=== PATIENT | male | born 1945 | race Caucasian/White ===

== ENCOUNTER 2020-04-06 10:16 | Outpatient (REF) | payer MEDICARE, SELFPAY ==
--- NOTE | ~2020-04-06 | US_ITS ---
EXAMINATION: EXAMINATION: NONINVASIVE ASSESSMENT OF THE ARTERIES OF BOTH LOWER EXTREMITIES WITH PVR EXAM AND BILATERAL LOWER EXTREMITY DUPLE CLINICAL INFORMATION: Peripheral vascular disease TECHNIQUE: Ankle pulse volume recordings, ankle pressure measurements and ankle brachial indices were obtained of the lower extremity arterial system bilaterally in addition to duplex Doppler techniques with wave form analysis and measurement of velocities in the common femoral, profunda femoral, superficial femoral, popliteal and tibial arteries. The study was performed only at rest. COMPARISON: Previous ankle brachial indices August 2019 FINDINGS: a) AT REST: RIGHT LE. The right ankle-brachial index is: 0.9 2. Right ankle pressure: Slightly decreased. 3. Right ankle PVR waveform: Slightly dampened. 4. Right direct duplex Doppler findings: There is atherosclerotic disease of the posterior tibial artery. * Common femoral artery: 100 cm/s, Diastolic flow reversal: No. Biphasic. * Superficial femoral artery (proximal, mid, distal): 122, 90 and 39 cm/s, Diastolic flow reversal: Yes * Popliteal artery: 90 cm/s, Diastolic flow reversal: Yes * Posterior tibial artery: 16 cm/s, Diastolic flow reversal: No. Monophasic. LEFT LE. The left ankle-brachial index is: 1.1 2. Left ankle pressure: normal. 3. Left ankle PVR waveform: normal. 4. Left direct duplex Doppler findings: There is atherosclerotic disease in the posterior tibial artery. * Common femoral artery: 87 cm/s, Diastolic flow reversal: Yes * Superficial femoral artery (proximal, mid, distal): 118, 99 and 55 cm/s, Diastolic flow reversal: No. Biphasic waveform. * Popliteal artery: 108 cm/s, Diastolic flow reversal: Yes * Posterior tibial artery: 47 cm/s, Diastolic flow reversal: No. Mnophasic. TEETEE Reference: * >0.97-1.25 = normal - no significant arterial disease * 0.75-0.96 = mild peripheral arterial disease * 0.5-0.74 = moderate peripheral arterial disease * <0.50 = severe peripheral arterial disease US/US arterial duplex LE BI IMPRESSION: Right: There is a right posterior tibial artery disease with decreased peak systolic velocity and dampened monophasic waveform and abnormal PVRs. The right TEETEE is 0.92. Left: There is left left posterior tibial artery disease with vessel monophasic waveform. There are abnormal biphasic waveforms in the left profunda and SFA. The left TEETEE is 1.1.
== END 2020-04-06 10:17 | disposition home or self-care (01) ==
LOC: HO.US 10:16
PROVIDERS: Visit Provider Surgery Vascular Surgery
DX: I73.9 Peripheral vascular disease, unspecified (principal)
CPT/HCPCS: 93923; 93925

== ENCOUNTER → 2020-04-14 08:50 | Outpatient (BNVA) | payer MEDICARE, SELFPAY | PROVIDERS: PCP Internal Medicine Endocrinology, Diabetes & Metabolism; Visit Provider Surgery Vascular Surgery | DX: I73.9 Peripheral vascular disease, unspecified (principal); I71.4 Abdominal aortic aneurysm, without rupture | CPT/HCPCS: 99212 ==

== ENCOUNTER 2020-10-05 07:46 | Outpatient (REF) | payer MEDICARE, SELFPAY ==
--- NOTE | ~2020-10-05 | US_ITS ---
EXAMINATION: US RETROPERITONEAL LIMITED (AORTA) CLINICAL INFORMATION: Abdominal aortic aneurysm, without rupture. COMPARISON: Limited retroperitoneal ultrasound (aorta) dated 09/09/2019. TECHNIQUE: Hook-scale, color Doppler and spectral Doppler evaluation of the abdominal aorta. FINDINGS: There is an infrarenal distal abdominal aortic aneurysm measuring 5.5 x 5.4 cm. Previously, this measured 4.4 x 2.6 cm The measurements of the aorta in maximum AP and transverse dimensions respectively are as follows: Proximal: 3.5 x 3.4 cm. Previously, this measured 2.9 x 2.9 cm. Mid: 2.4 x 2.7 cm. Distal: 5.5 x 5.4 cm. Previously, this measured 4.4 x 2.6 cm. PSV: 92 cm/sec The measurements of the common iliac arteries in maximum dimensions are as follows: Right: AP: Not seen. Left: AP: 1.5 cm. TRV: 1.6 cm. US/US abdominal aortic aneurysm IMPRESSION: 1. There is been interval increase in the distal abdominal aortic aneurysm, now measuring 5.5 x 5.4 cm..
== END 2020-10-05 07:47 | disposition home or self-care (01) ==
LOC: HO.US 07:46
PROVIDERS: PCP Internal Medicine; Visit Provider Surgery Vascular Surgery
DX: I71.4 Abdominal aortic aneurysm, without rupture (principal)
CPT/HCPCS: 76706

== ENCOUNTER → 2020-10-08 10:48 | Outpatient (BNVA) | payer MEDICARE, SELFPAY | PROVIDERS: PCP Internal Medicine; Referring Provider Internal Medicine; Visit Provider Surgery Vascular Surgery | DX: I71.4 Abdominal aortic aneurysm, without rupture (principal); I73.9 Peripheral vascular disease, unspecified | CPT/HCPCS: 99212 ==

== ENCOUNTER 2020-10-13 07:20 | Outpatient (REF) | payer MEDICARE, SELFPAY ==
[2020-10-13 08:31] LABS: Blood Urea Nitrogen 12 mg/dL (9-16); Estimated Glomerular Filt Rate > 60
== END 2020-10-13 07:21 | disposition home or self-care (01) ==
LOC: HO.LAB 07:20
PROVIDERS: PCP Internal Medicine; Visit Provider Surgery Vascular Surgery
DX: I71.4 Abdominal aortic aneurysm, without rupture (principal)
CPT/HCPCS: 36415; 82565; 84520

== ENCOUNTER 2020-10-15 07:49 | Outpatient (REF) | payer MEDICARE, SELFPAY ==
--- NOTE | ~2020-10-15 | CT_ITS ---
EXAMINATION: CT ANGIOGRAM ABDOMEN AND PELVIS CLINICAL INFORMATION: Abdominal aortic aneurysm. COMPARISON: Previous abdominal aortic aneurysm ultrasound 10/05/2020. TECHNIQUE: Multiple axial images were obtained through the abdomen and pelvis following the administration of 100 mL of Omnipaque 350 intravenous contrast. Images were reviewed on a dedicated 3-D workstation. This CT examination was performed using dose optimization techniques as appropriate, variously including the following: *Automated exposure control *Adjustment of mA and/or kV according to patient size (this includes techniques or standardized protocols for targeted exams where dose is matched to indication/reason for exam; i.e. extremities or head) *Use of iterative reconstruction technique DLP: 344 mGy-cm. FINDINGS: VASCULAR: There is a saccular aneurysm of the infrarenal abdominal aorta. This measures 3.5 x 4.8 cm in transverse and AP dimension. This involves the origin of the CHANTAL. The right lateral wall of the aneurysm appears irregular, possibly with small ulceration. The right common iliac artery is slightly dilated measuring 1.8 cm. The left common iliac artery is slightly dilated measuring 1.9 cm and contains some thrombus. The right external and internal iliac arteries are patent. The right common femoral artery is patent. The right femoral bifurcation is patent. There is mild stenosis at the origin of the left internal iliac artery. The left external iliac artery is patent. The left common femoral artery is patent. The left femoral bifurcation is patent. The celiac axis and SMA are patent. There is a stenosis at the origin of the CHANTAL. The CHANTAL is patent. There are single patent renal arteries. NON-VASCULAR: There is minimal subsegmental atelectasis at the left lung base. There is a trace pericardial effusion. There is question of mild cirrhotic changes of the liver with hypertrophy of the left lobe and caudate lobe. The contour of the liver appears normal. No focal liver lesion is seen. The gallbladder is normal. There is no biliary duct dilatation. The spleen is normal. The pancreas is normal. The adrenal glands are normal. There is a 1 cm cyst in the lower pole of the left kidney. The kidneys are otherwise normal. The bladder is normal. The prostate gland does not appear enlarged. There is mild diverticulosis of the colon. Small and large bowel is otherwise unremarkable. The stomach is unremarkable. The appendix is unremarkable. There is a small umbilical hernia containing fat. No ascites or adenopathy is seen. There are degenerative changes of the spine. There is mild anterior subluxation of L4 with respect L5 probably related to facet arthritis. There are degenerative changes at the hip joints. CT/CT angio abdomen pelvis IMPRESSION: 3.5 x 4.8 cm saccular aneurysm of the lower abdominal aorta. Mild dilatation of the bilateral common iliac arteries.
[2020-10-15] MEDS: iohexoL 350 MG/ML 100 ML INFUS..BTL IV (08:32)
== END 2020-10-15 07:50 | disposition home or self-care (01) ==
LOC: HO.CT 07:49
PROVIDERS: PCP Internal Medicine; Visit Provider Surgery Vascular Surgery
DX: I71.4 Abdominal aortic aneurysm, without rupture (principal)
CPT/HCPCS: 74174; 99212; Q9967

== ENCOUNTER 2021-02-11 08:45 | Outpatient (REF) | payer MEDICARE, SELFPAY | END 2021-02-11 08:46 | disposition home or self-care (01) | LOC: HO.WFDLDS 08:45 | PROVIDERS: PCP Internal Medicine; Visit Provider Internal Medicine | DX: Z20.822 Contact with and (suspected) exposure to COVID-19 (principal) | CPT/HCPCS: C9803; U0003; U0005 ==

== ENCOUNTER 2021-02-15 11:09 | Outpatient (REF) | payer MEDICARE, SELFPAY | END 2021-02-15 11:10 | disposition home or self-care (01) | LOC: HO.WFDLDS 11:09 | PROVIDERS: Visit Provider Internal Medicine | DX: Z20.822 Contact with and (suspected) exposure to COVID-19 (principal) | CPT/HCPCS: C9803; U0003; U0005 ==

== ENCOUNTER 2021-04-12 08:01 | Outpatient (REF) | payer MEDICARE, SELFPAY ==
--- NOTE | ~2021-04-12 | US_ITS ---
EXAMINATION: US RETROPERITONEAL LIMITED (AORTA) CLINICAL INFORMATION: Abdominal aortic aneurysm without rupture.. COMPARISON: CT abdomen 11/12/2020. Ultrasound 10/05/2020 TECHNIQUE: Hook-scale, color Doppler and spectral Doppler evaluation of the abdominal aorta. FINDINGS: There is an infrarenal distal abdominal aortic aneurysm measuring 6.3 x 4.6 cm. Previously this measured 4.8 x 3.5 cm on the prior CT of 11/12/2020. Previously, this measured 5.5 x 5.4 cm, prior ultrasound 10/05/2020. The measurements of the aorta in maximum AP and transverse dimensions respectively are as follows: Proximal: 3 x 3.3 cm. Previously, this measured 3.5 x 3.4 cm (ultrasound 10/05/2020) Mid: 2.5 x 2.3 cm. Previously, this measured 2.4 x 2.7 cm (ultrasound 10/05/2020) Distal: 6.3 x 4.[address] measurement of 4.8 x 3.5 cm (CT 11/02/2020) PSV: 85.7 cm/s. The measurements of the common iliac arteries in maximum AP and TRV dimensions are as follows: Right Common Iliac Artery: 2.3 x 2 cm. Left Common Iliac Artery: 2.1 x 1.9 cm. US/US abdominal aortic aneurysm IMPRESSION: 1. Interval increase in the distal abdominal aortic aneurysm, now measuring 6.3 x 4.6 cm. This previously measured 4.8 x 3.5 cm on the prior CT of 11/02/2020. Recommend further evaluation with CTA. 2. Mild dilatation of bilateral common iliac arteries. Preliminary report by the plant anatomist called to Gwen at Dr. Lucia's office at 9:00 AM on 04/12/2021. Findings and recommendations discussed with ESTEFANÍA Hidalgo in Dr. Lucia's office at 9:36 AM on 04/12/2021
[2021-04-12 15:11] LABS: Blood Urea Nitrogen 13 mg/dL (9-16); Estimated Glomerular Filt Rate > 60
== END 2021-04-12 08:02 | disposition home or self-care (01) ==
LOC: HO.US 08:01
PROVIDERS: PCP Internal Medicine; Visit Provider Surgery Vascular Surgery
DX: Z01.812 Encounter for preprocedural laboratory examination (principal); I71.4 Abdominal aortic aneurysm, without rupture
CPT/HCPCS: 36415; 76706; 82565; 84520

== ENCOUNTER 2021-04-13 08:07 | Outpatient (REF) | payer MEDICARE, SELFPAY ==
--- NOTE | ~2021-04-13 | CT_ITS ---
EXAMINATION: CT ANGIOGRAM ABDOMEN AND PELVIS CLINICAL INFORMATION: AAA, Without Rupture. COMPARISON: None TECHNIQUE: Multiple axial images were obtained through the abdomen and pelvis following the administration of 80 mL of Omnipaque 350 intravenous contrast. Images were reviewed on a dedicated 3-D workstation. This CT examination was performed using dose optimization techniques as appropriate, variously including the following: *Automated exposure control *Adjustment of mA and/or kV according to patient size (this includes techniques or standardized protocols for targeted exams where dose is matched to indication/reason for exam; i.e. extremities or head) *Use of iterative reconstruction technique DLP: 322 mGy-cm VASCULAR FINDINGS: The distal descending thoracic aorta appears normal. The upper abdominal aorta is unremarkable. There is aneurysmal dilatation of the infrarenal abdominal aorta with maximal dimensions of 4.8 x 3.6 cm (5:44) compared with 4.5 x 3.4 cm on 10/15/2020. The aneurysm begins just over 4 cm below the level of the renal arteries with a long-landing zone. There is mild associated aneurysmal dilatation of the common iliac arteries measuring 1.7 cm on on both sides. The iliac bifurcations are patent. The internal iliac arteries demonstrate fusiform aneurysmal dilatation with a more focal aneurysm measuring 1.5 cm on the left. The external iliac arteries are fusiformly dilated measuring 1.1 cm each. Common femoral arteries are widely patent. Femoral bifurcations are patent. The visualized proximal profunda femoris and superficial femoral artery are widely patent. The celiac and SMA are patent. The left gastric has a separate origin from the abdominal aorta. The right hepatic artery arises from the SMA. The CHANTAL origin is probably tightly stenotic but distal branches fill well. NONVASCULAR FINDINGS: LUNG BASES: The visualized lung bases are unremarkable. Calcified granuloma seen at the left lung base. LIVER, GALLBLADDER, AND BILIARY TREE: The liver is normal in size, shape, and attenuation. No focal hepatic lesion or biliary ductal dilatation is present. The gallbladder is unremarkable with no evidence of radiopaque gallstones, gallbladder wall thickening, or obvious pericholecystic inflammatory changes. PANCREAS: Unremarkable. SPLEEN: Unremarkable. ADRENAL GLANDS: Unremarkable. KIDNEYS AND URETERS: The kidneys are normal in size, shape, and attenuation. No hydronephrosis, hydroureter, or calculi seen. No perinephric stranding. BLADDER: Unremarkable. GASTROINTESTINAL TRACT: The small and large bowel are unremarkable. The appendix is unremarkable. ABDOMINAL WALL: No significant hernia is appreciated. LYMPH NODES: Normal. VASCULAR: Unremarkable. PELVIC VISCERA: Unremarkable. OSSEOUS STRUCTURES: Degenerative changes present in the spine. No bony destructive lesions are seen. CT/CT angio abdomen pelvis IMPRESSION: Infrarenal abdominal aortic aneurysm has increased in size from a maximum of 4.5 to 4.8 cm since the prior study. There is a 4 cm landing zone below the level of the renal arteries. There is associated aneurysmal dilatation of the common iliac arteries at 1.5 cm each. Internal iliac arteries with fusiform dilatation with a 1.5 cm aneurysm on the left. Fleischner guidelines were followed.
[2021-04-13] MEDS: iohexoL 350 MG/ML 100 ML INFUS..BTL IV (09:14)
== END 2021-04-13 08:08 | disposition home or self-care (01) ==
LOC: HO.CT 08:07
PROVIDERS: PCP Internal Medicine; Visit Provider Surgery Vascular Surgery
DX: I71.4 Abdominal aortic aneurysm, without rupture (principal)
CPT/HCPCS: 74174; Q9967

== ENCOUNTER → 2021-04-15 12:54 | Outpatient (BNVA) | payer MEDICARE, SELFPAY | PROVIDERS: PCP Internal Medicine; Visit Provider Surgery Vascular Surgery | DX: I71.4 Abdominal aortic aneurysm, without rupture (principal); I73.9 Peripheral vascular disease, unspecified | CPT/HCPCS: 99212 ==

== ENCOUNTER 2021-11-02 08:31 | Outpatient (REF) | payer MEDICARE, SELFPAY ==
--- NOTE | ~2021-11-02 | US_ITS ---
EXAMINATION: US RETROPERITONEAL LIMITED (AORTA) CLINICAL INFORMATION: Abdominal aortic aneurysm, without rupture. COMPARISON: CT angiogram abdomen and pelvis 04/13/2021. US retroperitoneal limited (aorta) 04/12/2021 and 10/05/2020. TECHNIQUE: Hook-scale, color Doppler and spectral Doppler evaluation of the abdominal aorta. FINDINGS: There is atherosclerotic disease. The measurements of the aorta in maximum AP and transverse dimensions respectively are as follows: Proximal: 3.1 x 3.1 cm. Mid: 2.4 x 2.6 cm. Infrarenal: 4.8 x 3.5 cm Distal: 2.2 x 2.1 cm. PSV: 79 cm/s. The measurements of the common iliac arteries in maximum AP and TRV dimensions are as follows: Right Common Iliac Artery: 1.8 x 2.2 cm. Left Common Iliac Artery: 2.3 x 2.4 cm. US/US abdominal aortic aneurysm IMPRESSION: Infrarenal abdominal aortic aneurysm measuring 4.8 x 3.5 cm (previously 4.8 x 3.6 cm on CTA). Bilateral iliac artery aneurysms.
== END 2021-11-02 08:32 | disposition home or self-care (01) ==
LOC: HO.HMGCX 08:31
PROVIDERS: PCP Internal Medicine; Visit Provider Surgery Vascular Surgery
DX: I71.4 Abdominal aortic aneurysm, without rupture (principal)
CPT/HCPCS: 76706

== ENCOUNTER → 2021-12-07 11:32 | Outpatient (BNVA) | payer MEDICARE, SELFPAY | PROVIDERS: PCP Internal Medicine; Visit Provider Surgery Vascular Surgery | DX: I71.40 Abdominal aortic aneurysm, without rupture, unspecified (principal); I73.9 Peripheral vascular disease, unspecified | CPT/HCPCS: 99212 ==

== ENCOUNTER 2022-11-30 08:44 | Outpatient (REF) | payer MEDICARE, SELFPAY ==
--- NOTE | ~2022-11-30 | US_ITS ---
EXAMINATION: US NONINVASIVE ASSESSMENT OF THE ARTERIES OF BOTH LOWER EXTREMITIES INCLUDING PVR EXAM AND BILATERAL LOWER EXTREMITY DUPLEX. CLINICAL INFORMATION: Peripheral vascular disease COMPARISON: Arterial duplex, TEETEE 04/06/2020 TECHNIQUE: Ankle pulse volume recordings, ankle pressure measurements and ankle brachial indices were obtained of the lower extremity arterial system bilaterally in addition to duplex Doppler techniques with wave form analysis and measurement of velocities in the common femoral, profunda femoral, superficial femoral, popliteal, tibial and peroneal arteries. The study was performed only at rest. FINDINGS: RIGHT LE. THE RIGHT ANKLE-BRACHIAL INDEX IS: 0.89 noncompressibility/calcification. >0.97-1.25 = normal - no significant arterial disease 0.75-0.96 = mild peripheral arterial disease 0.5-0.74 = moderate peripheral arterial disease <0.50 = severe peripheral arterial disease <0.30 = critical arterial disease 2. SEGMENTAL PRESSURES (mmHg): Ankle: PT 132, DP 148 3. PVR WAVEFORMS: Ankle: Normal 4. DIRECT DUPLEX: Common femoral artery: 79 cm/s, biphasic Profunda femoris artery: 58 cm/s, biphasic Superficial femoral artery (proximal): 90 cm/s, biphasic Superficial femoral artery (mid): 77 cm/s, triphasic Superficial femoral artery (distal): 96 cm/s, biphasic Popliteal artery: 82 cm/s, biphasic Mid posterior tibial artery: 29 cm/s, monophasic Anterior tibial artery: 95 cm/s, biphasic Peroneal artery: Not visualized LEFT LE. THE LEFT ANKLE-BRACHIAL INDEX IS: 1.21 (higher of the DP/PT) >0.97-1.25 = normal - no significant arterial disease 0.75-0.96 = mild peripheral arterial disease 0.5-0.74 = moderate peripheral arterial disease <0.50 = severe peripheral arterial disease <0.30 = critical arterial disease 2. SEGMENTAL PRESSURES: Ankle: PT 192, DP 161 3. PVR WAVEFORMS: Ankle: Dampened 4. DIRECT DUPLEX: Common femoral artery: 59 cm/s, biphasic Profunda femoris artery: 49 cm/s, biphasic Superficial femoral artery (proximal): 80 cm/s, biphasic Superficial femoral artery (mid): 121 cm/s, biphasic Superficial femoral artery (distal): 58 cm/s, biphasic Popliteal artery: 86 cm/s, triphasic Mid posterior tibial artery: 32 cm/s, biphasic Peroneal artery; not visualized US/US arterial duplex LE BI IMPRESSION: Right: Mild peripheral vascular disease throughout the right lower extremity, most pronounced within the tibial vessels based on velocity and monophasic waveforms. Peroneal artery is not visualized. The right TEETEE is 0.89 (previously 0.92). Left: Peripheral vascular disease predominantly involving the tibial vessels. Peroneal artery not visualized. The left TEETEE is 1.21 (previously 1.1). Overall, there is progression of the peripheral vascular disease since prior study in 2020.
--- NOTE | ~2022-11-30 | US_ITS ---
EXAMINATION: US RETROPERITONEAL LIMITED (AORTA) CLINICAL INFORMATION: Abdominal aortic aneurysm, without rupture. COMPARISON: US retroperitoneal limited (aorta) 11/02/2021 and 04/12/2021. TECHNIQUE: Hook-scale, color Doppler and spectral Doppler evaluation of the abdominal aorta. FINDINGS: The measurements of the aorta in maximum AP and transverse dimensions respectively are as follows: Proximal: 3.2 x 3.2 cm. Mid: 2.0 x 1.9 cm. Distal (aneurysmal segment): 4.8 x 4.3 cm. (Previously 4.8 x 3.5 cm) PSV: 77 cm/s. The measurements of the common iliac arteries in maximum AP and TRV dimensions are as follows: Right Common Iliac Artery: 1.8 x 2.0 cm. Left Common Iliac Artery: 2.2 x 2.0 cm. US/US abdominal aortic aneurysm IMPRESSION: Mild interval increase in size of abdominal aortic aneurysm, now measuring 4.8 x 4.3 cm (previously 4.8 x 3.5 cm). Bilateral common iliac fusiform aneurysms stable in size.
== END 2022-11-30 08:45 | disposition home or self-care (01) ==
LOC: HO.US 08:44
PROVIDERS: PCP Internal Medicine; Visit Provider Surgery Vascular Surgery
DX: I73.9 Peripheral vascular disease, unspecified (principal); I71.40 Abdominal aortic aneurysm, without rupture, unspecified
CPT/HCPCS: 76706; 93923; 93925

== ENCOUNTER 2022-12-22 13:30 | Outpatient (AMB) | payer MEDICARE, SELFPAY ==
--- NOTE | 2022-12-22 13:22 | MHC.OFFVIS ---
Intake Vital Signs 12/22/22 13:24 Height 5 ft 7 in Weight 215 lb BMI 33.7 Intake Visit Reasons: 1 yr follow up AAA &ARt US Intake Note: Pt here for a FU arterial US pt states that hes doing ok he still gets swelling on both ankles but it goes away aventually. He states that he does use the compression stockings but feels like he might need stronger ones Allergies No Known Allergies Allergy (Verified 12/22/22 13:24) HPI 1 yr follow up AAA &ARt US HPI Details Very pleasant 77-year-old gentleman presents for routine surveillance follow-up regarding his aortic aneurysm and peripheral vascular disease. He has done extremely well. He has no interval issues. He is ambulating several blocks with no issues. Now presents for follow-up with noninvasive testing. [facility] Medical History Type 2 diabetes mellitus PAD (peripheral artery disease) Venous insufficiency AAA (abdominal aortic aneurysm) Surgical History S/P anal fissurectomy Hx of colonoscopy Hyperplastic colon polyp H/O elbow surgery H/O foot surgery Hx of hand surgery H/O lithotripsy Hx of knee surgery History of femoral angiogram Review of Systems Const All systems reviewed & are unremarkable except as noted in HPI and below Reports no additional complaints ENT Reports Normal hearing present Card Denies chest pain, Denies chest pain at rest, Denies chest pain with activity and Denies pedal edema Resp Denies cough GI Denies abdominal pain Musc Denies abnormal gait, Denies muscle cramps and Denies radiating pain into limb Skin/Breast Denies skin ulcer and Denies wounds Neuro Reports Normal hearing present and Denies abnormal gait Psych Reports no additional complaints Physical Exam Vital Signs: BMI result Body Mass Index 33.7 Const General: cooperative, healthy appearing and comfortable Orientation/consciousness: oriented to person, oriented to place and oriented to time HEENT Head: Yes normal to inspection Neck Neck: Yes normal visual inspection Carotids: no bruits Chest Chest palpation & inspection: normal inspection of the chest Resp Effort & Inspection: normal respiratory effort and able to speak in complete sentences Auscultation: clear to auscultation bilaterally, no crackles, no rales, no rhonchi and no wheezes Cardio Other: Bilateral DP signals Rate: regular rate Rhythm: regular rhythm Heart sounds: S1 normal heart sound present and S2 normal heart sound present Bruits: no carotid bruits Peripheral pulses: Peripheral pulses 2+ throughout GI Inspection: Yes normal to inspection Skin Wounds: no wounds Hair: normal Neuro General: oriented to person, oriented to place and oriented to time Cranial nerves: Yes CN's II-XII intact bilaterally and Yes Normal hearing present Cognition (Neuro): normal cognition Motor exam (neuro): 5/5 motor strength present throughout Extrem Other: venous exam: No significant superficial varicosities or spider telangiectasias, minimal edema General: No clubbing, No cyanosis and No edema Psych Appearance: grossly normal Mental Status: mental status grossly normal Speech and movement: Normal speech and movement present Results Reviewed Results Reviewed: Noninvasive arterial testing dated 11/30/2022 demonstrates TEETEE on the right of 0.89 and on the left of 1.21. Aortic aneurysm measures 4.8 cm in true AP diameter Assessment & Plan Assessment & Plan (1) PAD (peripheral artery disease): Comment: 11/14/2018 - left peroneal atherectomy and plasty Code(s): I73.9 - Peripheral vascular disease, unspecified Plan: In short patient has stable claudication. I did review the pathophysiology of peripheral vascular disease with the patient. In addition we did discuss routine conservative measures including a healthy diet and the importance of exercise and ambulation. We did discuss risk factor modification. The patient will continue to to follow-up with surveillance follow-up in approximately 1 year. Thank you for allowing us to participate in this patient's care. If there are any questions or concerns please do not hesitate to contact us. (2) AAA (abdominal aortic aneurysm): Code(s): I71.4 - Abdominal aortic aneurysm, without rupture Qualifiers: Abdominal aorta location: infrarenal aorta Presence of rupture: without rupture Qualified Code(s): I71.43 - Infrarenal abdominal aortic aneurysm, without rupture Plan: In short patient has radiologic evidence of a AAA on ultrasound of 4.8 cm. We have discussed the pathophysiology of aortic aneurysms and the risk of ruptures. We have discussed rupture risk based on size. In addition we have discussed conservative measures and risk factor modification for prevention of increase in size of the aneurysm. the patient is scheduled for surveillance follow-up in approximately 1 year. Thank you for allowing us to participate in the care of this patient Orders: Orders US arterial duplex LE BI 364 Days I73.9 - Peripheral vascular disease, unspecified US abdominal aortic aneurysm 364 Days I71.43 - Infrarenal abdominal aortic aneurysm, without rupture Coding Level of Care Code Est Pt Level 4 (41199) Diagnoses PAD (peripheral artery disease) I73.9 Infrarenal abdominal aortic aneurysm (AAA) without rupture I71.43 Abdominal aorta location: infrarenal aorta Presence of rupture: without rupture
[2022-12-22 13:24] VITALS: BMI 33.7
== END 2022-12-22 13:53 | disposition home or self-care (01) ==
PROVIDERS: PCP Internal Medicine; Visit Provider Surgery Vascular Surgery
DX: I73.9 Peripheral vascular disease, unspecified (principal); I71.43 Infrarenal abdominal aortic aneurysm, without rupture
CPT/HCPCS: 99213

== ENCOUNTER → 2022-12-22 13:30 | Outpatient (BNVA) | payer MEDICARE, SELFPAY | PROVIDERS: PCP Internal Medicine; Visit Provider Surgery Vascular Surgery | DX: I73.9 Peripheral vascular disease, unspecified (principal); I71.43 Infrarenal abdominal aortic aneurysm, without rupture | CPT/HCPCS: 99212 ==

== ENCOUNTER 2023-03-07 16:21 | Outpatient (REF) | payer MEDICARE, SELFPAY ==
[2023-03-07 16:29] LABS: MANUAL DIFF FLAG NO
[2023-03-07 16:55] LABS: Basophils Percent Auto 0.5 % (0-2); Eosinophils Absolute Auto 0.1 X10*3/uL (0.0-0.4); Eosinophils Percent Auto 2.1 % (0-4); Hematocrit 42.7 % (42.0-52.0); Imm Gran Abs Auto 0.01 X10*3/uL (0.00-0.03); Imm Gran Pct Auto 0.2 % (0.0-0.4); Lymphocytes Absolute Auto 1.3 X10*3/uL (1.2-4.9); Lymphocytes Percent Auto 23.3 % (20-40); Mean Corpuscular HGB Conc 32.8 g/dl (31.0-36.0); Mean Corpuscular Hemoglobin 28.9 pg (27.0-33.0); Mean Platelet Volume 11.5 fL (9.4-12.4); Monocytes Absolute Auto 0.6 X10*3/uL (0.1-1.2); Monocytes Percent Auto 11.2 % (2-11); Neutrophils Absolute Auto 3.6 x10*3/uL (2.0-8.3); Neutrophils Percent Auto 62.7 % (45-73); Platelet Count 168 X10*3/uL (160-400); Red Blood Count 4.85 X10*6/uL (4.60-5.80); Red Cell Distribution Width 13.2 % (11.0-16.0); White Blood Count 5.7 X10*3/uL (4.8-10.8)
[2023-03-07 17:36] LABS: Erythrocyte Sedimentation Rate 9 MM/HR (0-15)
== END 2023-03-07 16:22 | disposition home or self-care (01) ==
LOC: HO.LAB 16:21
PROVIDERS: Visit Provider Psychiatry & Neurology Neurology
DX: G43.109 Migraine with aura, not intractable, without status migrainosus (principal)
CPT/HCPCS: 36415; 85025; 85652

== ENCOUNTER 2023-05-30 10:55 | Outpatient (AMB) | payer MEDICARE, SELFPAY ==
--- NOTE | 2023-05-30 11:02 | MHC.OFFVIS ---
Intake Vital Signs 05/30/23 11:05 Height 5 ft 7 in Intake Visit Reasons: Left leg pain Intake Note: Patient presents for left leg pain. Patient states the pain travels from his left calf and wraps around to the pastrana. Has minimal swelling but it wearing compression socks to alleviate pain/swelling. Allergies No Known Allergies Allergy (Verified 05/30/23 11:05) HPI Left leg pain HPI Details Very pleasant 77-year-old gentleman presents for follow-up regarding his left lower extremity. Actually seen us back in December for routine surveillance at that time he appeared to be doing relatively well. Had new onset left lower extremity pain and cramping. He reports that it is more on the lateral aspect of the leg but it occurs while ambulating. He became concerned and now presents for vascular evaluation [facility] Medical History Type 2 diabetes mellitus PAD (peripheral artery disease) Venous insufficiency AAA (abdominal aortic aneurysm) Surgical History S/P anal fissurectomy Hx of colonoscopy Hyperplastic colon polyp H/O elbow surgery H/O foot surgery Hx of hand surgery H/O lithotripsy Hx of knee surgery History of femoral angiogram Review of Systems Const All systems reviewed & are unremarkable except as noted in HPI and below Reports no additional complaints ENT Reports Normal hearing present Card Denies chest pain, Denies chest pain at rest, Denies chest pain with activity and Denies pedal edema Resp Denies cough GI Denies abdominal pain Musc Denies abnormal gait, Denies muscle cramps and Denies radiating pain into limb Skin/Breast Denies skin ulcer and Denies wounds Neuro Reports Normal hearing present and Denies abnormal gait Psych Reports no additional complaints Physical Exam Const General: cooperative, healthy appearing and comfortable Orientation/consciousness: oriented to person, oriented to place and oriented to time HEENT Head: Yes normal to inspection Neck Neck: Yes normal visual inspection Carotids: no bruits Chest Chest palpation & inspection: normal inspection of the chest Resp Effort & Inspection: normal respiratory effort and able to speak in complete sentences Auscultation: clear to auscultation bilaterally, no crackles, no rales, no rhonchi and no wheezes Cardio Other: Bilateral DP signals Rate: regular rate Rhythm: regular rhythm Heart sounds: S1 normal heart sound present and S2 normal heart sound present Bruits: no carotid bruits Peripheral pulses: Peripheral pulses 2+ throughout GI Inspection: Yes normal to inspection Skin Wounds: no wounds Hair: normal Neuro General: oriented to person, oriented to place and oriented to time Cranial nerves: Yes CN's II-XII intact bilaterally and Yes Normal hearing present Cognition (Neuro): normal cognition Motor exam (neuro): 5/5 motor strength present throughout Extrem Other: venous exam: No significant superficial varicosities or spider telangiectasias, minimal edema General: No clubbing, No cyanosis and No edema Psych Appearance: grossly normal Mental Status: mental status grossly normal Speech and movement: Normal speech and movement present Assessment & Plan Assessment & Plan (1) PAD (peripheral artery disease): Comment: 11/14/2018 - left peroneal atherectomy and plasty Code(s): I73.9 - Peripheral vascular disease, unspecified Plan: In short patient has new onset left lower extremity pain. It is associated with ambulation. I have taken the liberty of ordering an urgent repeat left leg arterial ultrasound. Will follow up with us after testing. Thank you for allowing us to assist in his care. If there are any questions or concerns please do not hesitate to contact us. Orders: Orders US arterial duplex LE LT 1 Week I73.9 - Peripheral vascular disease, unspecified Coding Level of Care Code Est Pt Level 4 (15482) Diagnoses PAD (peripheral artery disease) I73.9
== END 2023-05-30 11:29 | disposition home or self-care (01) ==
PROVIDERS: PCP Internal Medicine; Visit Provider Surgery Vascular Surgery
DX: I73.9 Peripheral vascular disease, unspecified (principal)
CPT/HCPCS: 99213

== ENCOUNTER → 2023-05-30 10:55 | Outpatient (BNVA) | payer MEDICARE, SELFPAY | PROVIDERS: PCP Internal Medicine; Visit Provider Surgery Vascular Surgery | DX: I73.9 Peripheral vascular disease, unspecified (principal) | CPT/HCPCS: 99212 ==

== ENCOUNTER 2023-06-06 14:51 | Outpatient (REF) | payer MEDICARE, SELFPAY ==
--- NOTE | ~2023-06-06 | US_ITS ---
EXAMINATION: US NONINVASIVE LOWER EXTREMITY DUPLEX, LEFT. CLINICAL INFORMATION: Peripheral vascular disease COMPARISON: None TECHNIQUE: Arterial duplex techniques with wave form analysis and measurement of velocities in the common femoral, profunda femoral, superficial femoral, popliteal, tibial and peroneal arteries. The study was performed only at rest. FINDINGS: Common femoral artery: 68 cm/s, Multiphasic Profunda femoris artery: 50 cm/s, Multiphasic Superficial femoral artery (proximal): 96 cm/s, Multiphasic Superficial femoral artery (mid): 114 cm/s, Multiphasic Superficial femoral artery (distal): 69 cm/s, biphasic Popliteal artery: 88 cm/s, biphasic Anterior tibial artery: 22 cm/s, biphasic Mid posterior tibial artery: Occluded Peroneal artery: Occluded Dorsalis pedis: 45 cm/s, biphasic US/US arterial duplex LE LT IMPRESSION: 1. No significant inflow peripheral vascular disease of the femoropopliteal. 2. Occluded peroneal and posterior tibial arteries. 3. Anterior tibial and dorsalis pedis patent.
== END 2023-06-06 14:52 | disposition home or self-care (01) ==
LOC: HO.US 14:51
PROVIDERS: PCP Internal Medicine; Visit Provider Surgery Vascular Surgery
DX: I73.9 Peripheral vascular disease, unspecified (principal)
CPT/HCPCS: 93926

== ENCOUNTER 2023-07-06 13:13 | Outpatient (AMB) | payer MEDICARE, SELFPAY ==
--- NOTE | 2023-07-06 13:33 | A.OFFVIS_ITS ---
Intake Visit Reasons: f/u s/p ART US Intake Note: Patient presents for arterial US done on 06/06/23. Patient states he is doing better , he is swimming at the [employer] , staying active. States he has occasional cramping. Accompanied by: Self / Same As Patient Allergies No Known Allergies Allergy (Verified 07/06/23 13:34) HPI HPI f/u s/p ART US: Details: Very pleasant 77-year-old gentleman presents for evaluation regarding his left lower extremity pain. He reports that it has improved over the past week and he is back to the doing his routine activities. Has had noninvasive testing. Reports at the current time it is only knee pain and he believes that it is more arthritic in nature. [facility] Medical History Type 2 diabetes mellitus PAD (peripheral artery disease) Venous insufficiency AAA (abdominal aortic aneurysm) Surgical History S/P anal fissurectomy Hx of colonoscopy Hyperplastic colon polyp H/O elbow surgery H/O foot surgery Hx of hand surgery H/O lithotripsy Hx of knee surgery History of femoral angiogram Review of Systems Const All systems reviewed & are unremarkable except as noted in HPI and below Reports no additional complaints ENT Reports Normal hearing present Card Denies chest pain, Denies chest pain at rest, Denies chest pain with activity and Denies pedal edema Resp Denies cough GI Denies abdominal pain Musc Denies abnormal gait, Denies muscle cramps and Denies radiating pain into limb Skin/Breast Denies skin ulcer and Denies wounds Neuro Reports Normal hearing present and Denies abnormal gait Psych Reports no additional complaints Physical Exam Const General: cooperative, healthy appearing and comfortable Orientation/consciousness: oriented to person, oriented to place and oriented to time HEENT Head: Yes normal to inspection Neck Neck: Yes normal visual inspection Carotids: no bruits Chest Chest palpation & inspection: normal inspection of the chest Resp Effort & Inspection: normal respiratory effort and able to speak in complete sentences Auscultation: clear to auscultation bilaterally, no crackles, no rales, no rhonchi and no wheezes Cardio Other: Bilateral DP signals Rate: regular rate Rhythm: regular rhythm Heart sounds: S1 normal heart sound present and S2 normal heart sound present Bruits: no carotid bruits GI Inspection: Yes normal to inspection Skin Wounds: no wounds Hair: normal Neuro General: oriented to person, oriented to place and oriented to time Cranial nerves: Yes CN's II-XII intact bilaterally and Yes Normal hearing present Cognition (Neuro): normal cognition Motor exam (neuro): 5/5 motor strength present throughout Extrem Other: venous exam: No significant superficial varicosities or spider telangiectasias, minimal edema General: No clubbing, No cyanosis and No edema Psych Appearance: grossly normal Mental Status: mental status grossly normal Speech and movement: Normal speech and movement present Results Reviewed Results Reviewed: Noninvasive testing dated 06/06/2023 demonstrates normal inflow there is some concern of occlusive disease in the tibial vessels. No other significant findings Assessment & Plan Assessment & Plan (1) PAD (peripheral artery disease): Comment: 11/14/2018 - left peroneal atherectomy and plasty Code(s): I73.9 - Peripheral vascular disease, unspecified Category: Medical Plan: In short patient has stable arterial disease and at the current time his symptoms appear to be resolved. I do believe this is more arthritic in nature. Will follow up with us in December for his routine surveillance of his aortic aneurysm. Thank you for allowing us to participate in his care. Coding Level of Care Code Est Pt Level 4 (45404) Diagnoses PAD (peripheral artery disease) I73.9
== END 2023-07-06 14:04 | disposition home or self-care (01) ==
PROVIDERS: PCP Internal Medicine; Visit Provider Surgery Vascular Surgery
DX: I73.9 Peripheral vascular disease, unspecified (principal)
CPT/HCPCS: 99213

== ENCOUNTER → 2023-07-06 13:13 | Outpatient (BNVA) | payer MEDICARE, SELFPAY | PROVIDERS: PCP Internal Medicine; Visit Provider Surgery Vascular Surgery | DX: I73.9 Peripheral vascular disease, unspecified (principal) | CPT/HCPCS: 99212 ==

== ENCOUNTER 2023-12-25 08:13 | Outpatient (REF) | payer MEDICARE, SELFPAY ==
--- NOTE | ~2023-12-25 | US_ITS ---
EXAMINATION: ABDOMINAL AORTIC ULTRASOUND CLINICAL INFORMATION: Family history of abdominal aortic aneurysm. COMPARISON: 11/30/2022 TECHNIQUE: Hook-scale, color Doppler and spectral Doppler evaluation of the abdominal aorta was performed. FINDINGS: 1. An infrarenal abdominal aortic aneurysm present with maximum dimension of 4.8 cm identical to the 11/30/2022 study. 2. The measurements of the aorta in maximum AP and transverse dimensions respectively are as follows: Proximal: 2.6 x 2.4 cm, Mid: 2.1 x 2.2 cm, Distal: 4.8 x 4.2 cm. 3.The measurements of the common iliac arteries in maximum AP dimension are as follows: Right common iliac artery: 1.7 x 1.8 cm, left common iliac artery: 1.9 x 2.2 cm. US/US abdominal aortic aneurysm IMPRESSION: 1. A 4.8 cm infrarenal abdominal aortic aneurysm. 2. Recommend followup every 6 months . Electronically signed by: Trenton Kent MD 12/27/2023 12:02 AM AL[facility]HE[facility]
--- NOTE | ~2023-12-25 | US_ITS ---
EXAMINATION: Noninvasive assessment of the arteries of both lower extremities to include a single level PVR exam and ANKLE BRACHIAL INDICES (ABIs). CLINICAL INFORMATION: Peripheral vascular disease TECHNIQUE: The ankle/brachial indices of the distal posterior tibial and the dorsalis pedis arteries were obtained of the lower extremity arterial system bilaterally; along with pressures and pulse volume recordings at the ankle level. The study was performed at rest. COMPARISON: 06/06/2023 and 09/10/2019 FINDINGS: 1. ANKLE-BRACHIAL INDICES: RIGHT: 0.91, previously 0.91 LEFT: 1.15, previously 1.23 2. ANKLE PVR WAVEFORMS: RIGHT: Mildly dampened LEFT: Normal US/US arterial duplex BI w/ TEETEE IMPRESSION: RIGHT LEG: Low normal ankle-brachial index. Mildly dampened PVR waveforms. LEFT LEG: Normal ankle-brachial index. Normal PVR waveforms. Electronically signed by: Frank Maddox MD 01/15/2024 04:24 PM [facility] Workstation: [id number]
== END 2023-12-25 08:14 | disposition home or self-care (01) ==
LOC: HO.US 08:13
PROVIDERS: PCP Internal Medicine; Visit Provider Surgery Vascular Surgery
DX: I71.43 Infrarenal abdominal aortic aneurysm, without rupture (principal); I73.9 Peripheral vascular disease, unspecified
CPT/HCPCS: 76706; 93922; 93925

== ENCOUNTER 2024-01-02 10:54 | Outpatient (AMB) | payer MEDICARE, SELFPAY ==
--- NOTE | 2024-01-02 10:56 | A.OFFVIS_ITS ---
Intake Visit Reasons: Follow Up 12/24 AAA Intake Note: Patient presents for AAA follow up. Accompanied by: Self / Same As Patient Allergies No Known Allergies Allergy (Verified 01/02/24 10:57) HPI HPI Follow Up 12/24 AAA: Details: Extremely pleasant 78-year-old gentleman presents for routine follow-up regarding aortic aneurysm and peripheral vascular disease. Reports he has been doing fairly well with no interval issues. He occasionally has some knee pain but other than that remains quite active. He continues to be very involved with his coffee and now presents for routine follow-up. [facility] Medical History Type 2 diabetes mellitus PAD (peripheral artery disease) Venous insufficiency AAA (abdominal aortic aneurysm) Surgical History S/P anal fissurectomy Hx of colonoscopy Hyperplastic colon polyp H/O elbow surgery H/O foot surgery Hx of hand surgery H/O lithotripsy Hx of knee surgery History of femoral angiogram Review of Systems Const All systems reviewed & are unremarkable except as noted in HPI and below Reports no additional complaints ENT Reports Normal hearing present Card Denies chest pain, Denies chest pain at rest, Denies chest pain with activity and Denies pedal edema Resp Denies cough GI Denies abdominal pain Musc Denies abnormal gait, Denies muscle cramps and Denies radiating pain into limb Skin/Breast Denies skin ulcer and Denies wounds Neuro Reports Normal hearing present and Denies abnormal gait Psych Reports no additional complaints Physical Exam Const General: cooperative, healthy appearing and comfortable Orientation/consciousness: oriented to person, oriented to place and oriented to time HEENT Head: Yes normal to inspection Neck Neck: Yes normal visual inspection Carotids: no bruits Chest Chest palpation & inspection: normal inspection of the chest Resp Effort & Inspection: normal respiratory effort and able to speak in complete sentences Auscultation: clear to auscultation bilaterally, no crackles, no rales, no rhonchi and no wheezes Cardio Rate: regular rate Rhythm: regular rhythm Heart sounds: S1 normal heart sound present and S2 normal heart sound present Bruits: no carotid bruits Peripheral pulses: Peripheral pulses 2+ throughout GI Inspection: Yes normal to inspection Skin Wounds: no wounds Hair: normal Neuro General: oriented to person, oriented to place and oriented to time Cranial nerves: Yes CN's II-XII intact bilaterally and Yes Normal hearing present Cognition (Neuro): normal cognition Motor exam (neuro): 5/5 motor strength present throughout Extrem Other: venous exam: No significant superficial varicosities or spider telangiectasias, minimal edema General: No clubbing, No cyanosis and No edema Psych Appearance: grossly normal Mental Status: mental status grossly normal Speech and movement: Normal speech and movement present Results Reviewed Results Reviewed: Noninvasive arterial testing dated 12/25/2023 demonstrates TEETEE on the right 0.91 and on the left of 1.15. In addition aortic ultrasound demonstrates a 4.8 cm infrarenal aortic aneurysm. Written report and images were reviewed Assessment & Plan Assessment & Plan (1) PAD (peripheral artery disease): Comment: 11/14/2018 - left peroneal atherectomy and plasty Code(s): I73.9 - Peripheral vascular disease, unspecified Category: Medical Plan: In short patient has stable claudication. I did review the pathophysiology of peripheral vascular disease with the patient. In addition we did discuss routin e conservative measures including a healthy diet and the importance of exercise and ambulation. We did discuss risk factor modification. The patient will continue to to follow-up with surveillance follow-up in approximately 6 months. Thank you for allowing us to participate in this patient's care. If there are any questions or concerns please do not hesitate to contact us. (2) AAA (abdominal aortic aneurysm): Code(s): I71.4 - Abdominal aortic aneurysm, without rupture Category: Medical Qualifiers: Abdominal aorta location: infrarenal aorta Presence of rupture: without rupture Qualified Code(s): I71.43 - Infrarenal abdominal aortic aneurysm, without rupture Plan: In short patient has radiologic evidence of a AAA on ultrasound 4.8 cm. We have discussed the pathophysiology of aortic aneurysms and the risk of ruptures. We have discussed rupture risk based on size. In addition we have discussed conservative measures and risk factor modification for prevention of increase in size of the aneurysm. the patient is scheduled for surveillance follow-up in approximately 6 months. Thank you for allowing us to participate in the care of this patient Orders: Orders US abdominal aortic aneurysm 6 Months I71.43 - Infrarenal abdominal aortic aneurysm, without rupture US arterial duplex LE BI 6 Months I73.9 - Peripheral vascular disease, unspecified Coding Level of Care Code Est Pt Level 4 (08956) Diagnoses PAD (peripheral artery disease) I73.9 Infrarenal abdominal aortic aneurysm (AAA) without rupture I71.43 Abdominal aorta location: infrarenal aorta Presence of rupture: without rupture
== END 2024-01-02 11:32 | disposition home or self-care (01) ==
PROVIDERS: PCP Internal Medicine; Visit Provider Surgery Vascular Surgery
DX: I73.9 Peripheral vascular disease, unspecified (principal); I71.43 Infrarenal abdominal aortic aneurysm, without rupture
CPT/HCPCS: 99214

== ENCOUNTER → 2024-01-02 10:54 | Outpatient (BNVA) | payer MEDICARE, SELFPAY | PROVIDERS: PCP Internal Medicine; Visit Provider Surgery Vascular Surgery | DX: I73.9 Peripheral vascular disease, unspecified (principal); I71.43 Infrarenal abdominal aortic aneurysm, without rupture | CPT/HCPCS: 99212 ==

== ENCOUNTER 2024-05-07 09:57 | Outpatient (AMB) | payer MEDICARE, SELFPAY ==
--- NOTE | 2024-05-07 09:59 | A.OFFVIS_ITS ---
Intake Visit Reasons: follow up s/p MRI done at Intake Note: Patient presents for follow up MRI . Patient states his left leg is painful. He is able to stretch his leg out but it is painful to bend. Started a week ago. Accompanied by: Self / Same As Patient Allergies No Known Allergies Allergy (Verified 05/07/24 10:01) HPI HPI follow up s/p MRI done at : Details: The patient is an 78-year-old male presenting with new onset left calf pain. He reports that approximately two weeks ago, while engaging in walking activities, he began to experience intermittent, severe pain in the left calf, which worsened during activities such as entering his car. The discomfort is greatly reduced when the leg is bent, suggesting a possible muscle strain rather than any significant vascular compromise. The patient previously experienced a similar issue, although it resolved spontaneously. He also mentioned a recent episode of dizziness while driving, leading to a hospital visit where further evaluations, including an MRI, revealed a prior mini-stroke and significant carotid artery stenosis, with the right carotid artery measuring 50% and the left 60% occlusion respectively. Follow-up imaging from a prior consultation in December indicated stable blood flow concerning his aortic aneurysm and peripheral vascular disease. [facility] Medical History Type 2 diabetes mellitus PAD (peripheral artery disease) Venous insufficiency AAA (abdominal aortic aneurysm) Surgical History S/P anal fissurectomy Hx of colonoscopy Hyperplastic colon polyp H/O elbow surgery H/O foot surgery Hx of hand surgery H/O lithotripsy Hx of knee surgery History of femoral angiogram Review of Systems Const All systems reviewed & are unremarkable except as noted in HPI and below Reports no additional complaints ENT Reports Normal hearing present Card Denies chest pain, Denies chest pain at rest, Denies chest pain with activity and Denies pedal edema Resp Denies cough GI Denies abdominal pain Musc Denies abnormal gait, Denies muscle cramps and Denies radiating pain into limb Skin/Breast Denies skin ulcer and Denies wounds Neuro Reports Normal hearing present and Denies abnormal gait Psych Reports no additional complaints Physical Exam Const General: cooperative, healthy appearing and comfortable Orientation/consciousness: oriented to person, oriented to place and oriented to time HEENT Head: Yes normal to inspection Neck Neck: Yes normal visual inspection Carotids: no bruits Chest Chest palpation & inspection: normal inspection of the chest Resp Effort & Inspection: normal respiratory effort and able to speak in complete sentences Auscultation: clear to auscultation bilaterally, no crackles, no rales, no rhonchi and no wheezes Cardio Other: Palpable bilateral dorsalis pedis pulses Rate: regular rate Rhythm: regular rhythm Heart sounds: S1 normal heart sound present and S2 normal heart sound present Bruits: no carotid bruits Peripheral pulses: Peripheral pulses 2+ throughout GI Inspection: Yes normal to inspection Skin Wounds: no wounds Hair: normal Neuro General: oriented to person, oriented to place and oriented to time Cranial nerves: Yes CN's II-XII intact bilaterally and Yes Normal hearing present Cognition (Neuro): normal cognition Motor exam (neuro): 5/5 motor strength present throughout Extrem Other: venous exam: No significant superficial varicosities or spider telangiectasias, minimal edema General: No clubbing, No cyanosis and No edema Psych Appearance: grossly normal Mental Status: mental status grossly normal Speech and movement: Normal speech and movement present Results Reviewed Results Reviewed: CT angio of neck dated 03/01/2024 demonstrates right side 50% stenosis left side 60% stenosis written report and images were reviewed. Assessment & Plan Assessment & Plan (1) PAD (peripheral artery disease): Comment: 11/14/2018 - left peroneal atherectomy and plasty Code(s): I73.9 - Peripheral vascular disease, unspecified Category: Medical Plan: Stable six-month follow-up (2) AAA (abdominal aortic aneurysm): Code(s): I71.4 - Abdominal aortic aneurysm, without rupture Category: Medical Qualifiers: Abdominal aorta location: infrarenal aorta Presence of rupture: without rupture Qualified Code(s): I71.43 - Infrarenal abdominal aortic aneurysm, without rupture Plan: Stable six-month follow-up (3) Carotid stenosis: Code(s): I65.29 - Occlusion and stenosis of unspecified carotid artery Category: Medical Qualifiers: Laterality: bilateral Qualified Code(s): I65.23 - Occlusion and stenosis of bilateral carotid arteries Plan: I discussed with the patient the likelihood of a muscle strain in the left calf as the cause of his acute leg pain, expressing confidence in the absence of vascular compromise based on current examination findings. We agreed on a management strategy involving ibuprofen and advised monitoring for improvement. For the carotid artery disease, and in light of findings from his recent MRI and ultrasound, I explained that no intervention is required unless significant progression occurs. We scheduled follow-up imaging and consultations in June to reassess the vascular status. I assured him that the current dizziness does correlate with the chronic brain infarct findings and does not necessitate immediate intervention. Patient Instructions: - Take ibuprofen (Advil) to manage left calf pain, starting with a higher f requency and tapering as symptoms improve. - Monitor for any increase in leg pain or new symptoms and contact if they occur. - Follow up as scheduled in June for reassessment of vascular issues. - Contact healthcare provider if dizziness reoccurs or worsens. Coding Level of Care Code Est Pt Level 4 (58456) Complex EM visit Add On [id number] Diagnoses PAD (peripheral artery disease) I73.9 Infrarenal abdominal aortic aneurysm (AAA) without rupture I71.43 Abdominal aorta location: infrarenal aorta Presence of rupture: without rupture Bilateral carotid artery stenosis I65.23 Laterality: bilateral
--- OUTSIDE RECORDS SUMMARY | 2024-05-07 11:36 | XMS_ITS | Patient Health Record ---
Author Organization [facility] Address [address] [place] [address] Care Team Providers Care Purchasing Officer Name Role Phone Graciela STATON, Boris Avila Primary Care Provider Unav ailable Black, Emilie Unavailable [phone] Reason For Referral No Information Medications Medication SIG (Take, Route, Frequency, Duration) Notes Start Date End Date Status Lopid 600 MG 1 tablet Orally Twice a day Active Night Splint AFO - L1930 as directed 11/01/2018 Active Probenecid 500 MG 1 tablet Orally Active Atenolol 50 MG 1 tablet Orally Active Levothroid 25 MCG 1 tablet every morni ng on an empty stomach Orally Once a day for 30 day(s) Active baby asprin as directed Active Immunizations Vaccine Route Administration Date Status Comme nts Influenza Unknown 12/21/2015 Administered Influenza Unknown 12/21/2015 Administered Social History Tobacco Use: Social History Observation Description Date Details (start date - stop date) Former Smoker NA - NA Tobacco Use/Smoking Question Answer Notes Are you a: former smoker When did you stop smoking? 15 years ago Additional Findings: Tobacco Non-User Current no n-smoker Alcohol Screen Question Answer Notes Did you have a drink containing alcohol in the p ast year? Yes Points 0 Interpretation Negative Tobacco use other than smoking: Question Answer Notes Are you an other tobacco user? No Section Notes: ` Problems Problem Type SNOMED Code ICD Code Onset Dates Problem Status W/U Status Risk Notes Problem 895401895 Hallux rigidus of right foot (M20.21) Active confirmed Plan Of Treatment Pending Test Test Name Order Date X ray : Foot, left 3V 10/02/2012 X ray : Foot, right 3V 05/06/2011 X ray : Foot, right 3V 10/02/2012 [id number] NAIL, 1-5 10/02/201247407,[id number] TENDON SHEATH/LIGAMENT 0 08/30/201837651,[id number] TENDON SHEATH/LIGAMENT 0 11/01/2018 Insurance Providers Payer Name Payer Address Payer Phone Subscriber Number Group Number Insured Name Patient Relationship to Insured Coverage Start Date Coverage End Date [employer] [place] [employer]vantage [facility] [address] [facility] [place] [address] [id number] Sam Villareal Self - patient is the insured Medical (General) History Medical History History ICD Code back, hip, knee pain transfusions thyroid disorder mumps measles Gout chicken pox Cholesterol Arthritis type II diabetes abdominal aortic aneurysm Cataracts Surgical History Surgery Date(Month/Year) hand/wrist 2006 knee surgery 2004
--- OUTSIDE RECORDS SUMMARY | 2024-05-07 11:36 | XMS_ITS | Encounter Summary ---
Author Organization [facility] Address [address] [place] [address] [address] [address] Care Team Providers Care Earth Science Technician Name Role Phone Unavailable Primary Care Provider Unavailabl e Reason for Visit * Reason Comments Filling Encounter Details Date Type Department Care Team (Late st Contact Info) Description 04/15/2024 10:00 AM EST Office Visit [facility] [address] [place] [address] [phone] Johnnie Baez BDS [address] [place] [address] Social History Tobacco Use Types Packs/Day Years Used Date Smoking Tobacco: Unknown Alcohol Use Standard Drinks/Week Comments Not Currently 0 (1 standard drink = 0.6 oz pur e alcohol) Sex and Gender Information Value Date Recorded Sex Assigned at Male 12/13/2021 10:40 AM EDT Legal Sex Male 10:40 AM EDT Gender Identity Male 12/13/2021 10:40 AM EDT Sexual Orientation Straight 11/14/2022 2: 28 PM EDT documented as of this encounter Last Filed Vital Signs Vital Sign Reading Time Taken Comments Blood Pressure 130/72 04/15/2024 10:34 AM EST Pulse - - Temperature - - Respiratory Rate - - Oxygen Saturation - - Inhaled Oxygen Concentration - - Weight - - Height - - Body Mass Index - - documented in this encounter Progress Notes * Johnnie Baez BDS - 04/15/2024 10:00 AM EST Images from the original note were not included. Patient seen composite jainism on tooth #28. Medical History Reviewed. Today's treatment reason- Existing jainism with poor marginal integrity, Caries noted with explorer, recurrent caries noted, Decay present on radiograph. Decay excavated and tooth restored using matrix band/mylar strip and wedges as needed. Cavity Cleanser-CHX. Desensitizer - Gluma. Base-Ionosit. Etch tooth - Yes. Tie Fastener-i-bond. Composite material - PulpDent Bioactive, [facility]. Vitapan classical A3.5. Contoured, occlusion checked and adjusted, established proximal contacts, finished, polished. Patient made aware of post-op sensitivity, patient understood and satisfied. documented in this encounter Plan of Treatment Not on file documented as of this encounter Procedures Procedure Name Priority Date/Time Associated Diagnosis Comments 28 DFF(V) RESIN-BASED COMPOSITE - 2 SURF, POSTERIOR Routine 04/15/2024 10:00 AM EST CASE PRESENTATION, DETAILED AND EXTENSIVE TREATMENT PLANNING Routine 04/15/2024 10:00 AM EST documented in this encounter Visit Diagnoses Not on filedocumented in this encounter
--- OUTSIDE RECORDS SUMMARY | 2024-05-07 11:36 | XMS_ITS | Encounter Summary ---
Author Organization [employer] [facility] Address [address] [place] [address] [address] [place] [address] Care Team Providers Care Swatcher Name Role Phone Unavailable Primary Care Provider Unavailabl e Reason for Visit * Reason Onset Date Comments appt 01/15/2024 Encounter Details Date Type Department Care Team (Late st Contact Info) Description 01/15/[address] [facility] [address] [place], [place] [phone] Johnnie Baez BDS [address] [place], [place] [phone] appt Social History Tobacco Use Types Packs/Day Years Used Date Smoking Tobacco: Unknown Sex and Gender Information Value Date Recorded Sex Assigned at Male 12/13/2021 10:40 AM EDT Legal Sex Male 10:40 AM EDT Gender Identity Male 12/13/2021 10:40 AM EDT Sexual Orientation Straight 11/14/2022 2: 28 PM EDT documented as of this encounter Miscellaneous Notes * Telephone Encounter - Kelsea Zamora - 01/15/2024 12:40 PM EST Patient is looking to schedule an appt that they state was cancelled by office last week. I do not see anything scheduled for last week. Patient is stating that he needs a follow up with DR. Avery garces document what appt is needed. Please reach out to patient documented in this encounter Plan of Treatment Not on file documented as of this encounter Visit Diagnoses Not on filedocumented in this encounter
--- OUTSIDE RECORDS SUMMARY | 2024-05-07 11:36 | XMS_ITS | Encounter Summary ---
Author Organization [facility] Address [address] [place] [address] [address] [place] [address] Care Team Providers Care Wallpaper Scraper Name Role Phone Unavailable Primary Care Provider Unavailabl e Reason for Visit * Reason Comments Filling Encounter Details Date Type Department Care Team ([facility] st Contact Info) Description 03/05/2024 8:00 AM EST Office Visit [facility] [address] [place] [address] Hieu Olivarez DMD [address] [place] [address] Social History Tobacco Use Types Packs/Day Years [...] PM EDT documented as of this encounter Progress Notes * Hieu Olivarez DMD - 03/05/2024 8:00 AM EST C/C: chipped filling at LL premolar crown and feels sharp at LR premolar crown I.O.E: no sensitive to percussion of #21,27, slightly chipped subgingival cervical filling #21, E.O.E: wnl Radiographic: distal subgingival cervical filling #21 with root caries, #27 looks ok except periodontal bone loss Dx: root caries #21 Tx: Inform pt that the prognosis of the condition of #21 is poor NV: follow up on #21 and #[address] Yesica Stanley documented in this encounter Plan of Treatment Not on file documented as of this encounter Procedures Procedure Name Priority Date/Time Associated Diagnosis Comments LIMITED ORAL EVALUATION - PROBLEM FOCUSED Routine 03/05/2024 8:00 AM EST INTRAORAL - PERIAPICAL FIRST RADIOGRAPHIC IMAGE Routine 03/05/2024 8:00 AM EST CASE PRESENTATION, DETAILED AND EXTENSIVE TREATMENT PLANNING Routine 03/05/2024 8:00 AM EST documented in this encounter Visit Diagnoses Not on filedocumented in this encounter
--- OUTSIDE RECORDS SUMMARY | 2024-05-07 11:36 | XMS_ITS | Clinical Summary ---
Author Organization [address] Address [address] [place] [address] Phone Care Team Providers Care Neuroscientist Name Role Phone Boris Owens MD Primary Care Provider [phone] Allergies No known active allergies Medications triamcinolone (KENALOG) 0.1 % dental paste APPLY TO MOUTH SORE 2 TIMES DAILY NEEDED (GENERIC FOR KENALOG) 4 Active simvastatin (ZOCOR) 40 mg tablet Take 1 tablet (40 mg total) by mouth. 4 Active probenecid (BENEMID) 500 mg tablet TAKE 1 TABLET DAILY (GENERIC FOR BENEMID) 3 Active lisinopril (ZestriL) 40 mg tablet Take 1 tablet (40 mg total) by mouth 1 (one) time each day. 3 Active ciclopirox (PENLAC) 8 % solution Apply daily to nails clean medication residue off of nail plate every 3 days with rubbing alcohol 3 Active atenoloL (TENORMIN) 50 mg tablet Take 1 tablet (50 mg total) by mouth 1 (one) time each day. 3 Active hydrocortisone (ANUSOL-HC) 2.5 % rectal cream Apply 1 Dose topically. 3 Active diclofenac (VOLTAREN) 1 % topical gel Apply 1 g topically. 3 Active blood-glucose meter kit 1 kit by Not Applicable route. 3 Active FREESTYLE LANCETS [facility] [place] USE TO CHECK BLOOD SUGARS 3 TIMES DAILY 3 Active metroNIDAZOLE (METROCREAM) 0.75 % cream Apply sparingly once or twice daily to affected areas on face as needed 2 Active lecithin, soy 1,200 mg capsule capsule Take by mouth. Active vitamin E, dl,tocopheryl acet, (vitamin E, dl, acetate,) 45 mg (100 unit) capsule Take 1 capsule (100 Units total) by mouth. Active cholecalciferol (VITAMIN D-3) 10 mcg (400 unit) tablet Take 1 tablet (400 Units total) by mouth 1 (one) time each day. Active FLAXSEED OIL ORAL Take by mouth. Activ e Cinnamon 500 mg capsule Take by mouth. Activ e Vitamin C tablet Take 1 tablet (100 mg total) by mouth. Active glucosamine/D3/ boswellia amrik (GLUCOSAMINE DAILY COMPLEX ORAL) Take by mouth. Activ e OMEGA-3 FATTY ACIDS-FISH OIL ORAL Take by mouth. Activ e cyanocobalamin (VIT B-12) 1,000 mcg tablet extended release ER tablet Take by mouth. Activ e aspirin 81 mg EC tablet Take 1 tablet (81 mg total) by mouth. Active predniSONE (DELTASONE) 20 mg tablet TAKE 3 TABLETS DAILY FOR 3 DAYS, THEN 2 TABLETS FOR 3 DAYS, THEN 1 TABLET FOR 3 DAYS - GENERIC FOR DELTASONE 90 tablet 1 5 Active sildenafiL (VIAGRA) 50 mg tablet TAKE 1 TABLET BY MOUTH 1 HOUR BEFORE NEEDED DIRECTED 6 tablet 5 5 Active meclizine (ANTIVERT) 25 mg tablet 5 Active doxycycline (ADOXA) 50 mg tablet Take 1 tablet (50 mg total) by mouth 2 (two) times a day. Take with a full glass of water and do not lie down for at least 30 minutes after. Active acyclovir (ZOVIRAX) 5 % ointment Apply topically 6 (six) times a day. Space applications every 3 hours. 15 g 1 5 Active levothyroxine (SYNTHROID, LEVOTHROID) 175 mcg tablet Take 1 tablet (175 mcg total) by mouth 1 (one) time each day before breakfast. 90 tablet 1 5 09/17/19 25 Active blood sugar diagnostic (FreeStyle Lite Strips) test strip Use as instructed 200 each 3 5 Active Active Problems Problem Noted Date Diagnosed Date Class 1 obesity 03/19/2024 Fever 03/19/2024 Hallux rigidus of right foot 03/19/2024 Hyperglycemia due to diabetes mellitus 5 Neck pain 03/19/2024 Rigors 03/19/2024 Sore throat 03/19/2024 Candidiasis of mouth 03/19/2024 Real time reverse transcript ase PCR positive for COVID-19 virus 08/28/2023 Gastroesophageal reflux disease without esophagi tis 07/12/2023 Sensation of foreign body in throat 07/12/2023 Severe obesity (BMI 35.0-35.9 with comorbidity) 04/21/2023 History of tobacco abuse 04/21/2023 Need for prophylactic vaccin ation against Streptococcus pneumoniae (pneumococcus) 04/21/2023 Grade II hemorrhoids 11/21/2022 Oral thrush 11/30/2021 Cervical spine disease 07/22/2021 Overview (04/21/2023): s/p surgery by Dr. 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 Venous insufficiency of both lower extremities 0 06/27/2013 Vertigo, benign positional 06/27/2013 Type 2 diabetes mellitus with renal manifestatio ns 08/15/2011 Overview (04/21/2023): Diet controlled AAA (abdominal aortic aneurysm) without rupture 07/11/2008 Overview (04/21/2023): 02/2018 4.4 cm Renal calculi 12/31/2007 Primary hypertension 05/01/2006 Gout 02/15/2005 Hypothyroidism 02/15/2005 Hyperlipemia 02/15/2005 Encounters Date Type Department Care Team Description 04/16/2024 8:45 AM EST Office Visit Orthopedic Surgery [place] [id number] [phone] Juan Martinez DPM Type 2 diabetes mellitus with neurological manifestations (CMS/HCC) (Primary Dx); PAD (peripheral artery disease) (CMS/HCC); Arthritis of both feet; Hammertoes of both feet; Dermatophytosis, nail 03/20/2024 11:00 AM EST Office Visit Adult [address] [phone] Boris Owens MD Primary osteoarthritis of right knee (Primary Dx); Type 2 diabetes mellitus with neurological manifestations (CMS/HCC); Cold sore; Primary hypertension; Hypothyroidism, unspecified type; PAD (peripheral artery disease) (CMS/HCC) 03/20/2024 9:30 AM EST Consult Orthopedic Surgery [facility] [address] [phone] Sanaz Sanchez NP Primary osteoarthritis of right knee (Primary Dx); Chronic pain of right knee 02/13/2024 8:45 AM EST Consult Orthopedic Surgery [facility] [address] [phone] Juan Martinez, DPDaniel Type 2 diabetes mellitus with neurological manifestations ([facility]) (Primary Dx); PAD (peripheral artery disease) ([facility]); Arthritis of both feet; Hammertoes of both feet; Dermatophytosis, nail; Chronic pain of right knee from Last 3 Months Immunizations Name Administration Dates Next Due Influenza Quadravalent, MDCK , 0.5ml, with preservative (Flucelvax) 6mo and older 01/04/2017 Influenza trivalent, 0.5mL ( Fluzone High-dose) 65yo and older 11/21/2022,11/03/2021,11/02/2020,11/14,01/21/2019 Influenza trivalent, with pr eservative (Fluzone; Afluria) 6mo and older 01/15/2014,12/06/2012,11/22/2011,01/11 Clarivoy SARS-CoV-2 COVID-19, mRNA, LNP-S, preservative free 12/09/2020,04/15/2020,03/25/2020 Pneumococcal polysaccharide 23 valent (Pneumovax 23) 2yo and older 11/30/2021,01/11/2010 Td Tetanus diptheria (Tdvax) 7yo and older 05/01/2006 Tdap Tetanus diptheria acell ular pertussis (Boostrix; Adacel) 7yo and older 05/01/2006 Zoster Live 12/30/2014 Surgical History Surgery Date Site/Laterality Comments OTHER SURGICAL HISTORY PROCEDURE: CT UNLISTED PROCEDURE FEMUR/KNEE; COMMENT: l knee OTHER SURGICAL HISTORY PROCEDURE: ---- OTHER ----; COMMENT: injury l thumb HAND SURGERY PROCEDURE: HISTORICAL HAND SURGERY; COMMENT: CTS, trigger finger MULTIPLE TOOTH EXTRACTIONS PROCEDURE: HISTORICAL DENTAL EXTRACTION FOOT SURGERY PROCEDURE: HISTORICAL FOOT SURGERY; COMMENT: l bunion COLONOSCOPY 05/19/2004 PROCEDURE: HISTORICAL COLONOSCOPY; COMMENT: normal COLONOSCOPY 08/26/2014 PROCEDURE: HISTORICAL COLONOSCOPY; COMMENT: 5 mm rectal polyp: hyperplastic. ELBOW SURGERY Right PROCEDURE: HISTORICAL ELBOW SURGERY; COMMENT: tennis elbow LITHOTRIPSY 08/22/2008 PROCEDURE: HISTORICAL LITHOTRIPSY OTHER SURGICAL HISTORY 06/06/2008 PROCEDURE: CT FISSURECTOMY INCL SPHINCTEROTOMY WHEN PERFORMED Medical History Medical History Date Comments Vertigo, benign positional 06/27/2013 DX:Ve rtigo, benign positional Renal calculi 12/31/2007 DX:Renal calculi Hypertension 05/01/2006 DX:Hypertension Hyperlipemia 02/15/2005 DX:Hyperlipemia Gout 02/15/2005 DX:Gout Historical Medical DX 06/27/2013 DX:Bilater al venous insufficiency History of tobacco abuse DX:Hist ory of tobacco abuse Obesity (BMI 30.0-34.9) 05/20/2010 DX:Obesi ty (BMI 30.0-34.9) Microalbuminuria 06/25/2018 DX:Microalbumin uria Lung nodule 12/16/2014 DX:Lung nodule; COMMENT: Near anterior 7th rib on the right. Hypothyroidism 02/15/2005 DX:Hypothyroidis m PAD (peripheral artery disea se) (CMS/HCC) 03/12/2018 DX:PAD (peripheral artery di sease) ([facility]) AAA (abdominal aortic aneury sm) without rupture (CMS/HCC) 07/11/2008 DX:AAA (abdominal aortic ane urysm) without rupture ([facility]); COMMENT: 02/2018 4.4 cm Chronic sinusitis 08/23/2018 DX:Chronic sin usitis Osteoarthritis 08/23/2018 DX:Osteoarthriti s; COMMENT: Lumbar Spine, Hips, Hands Cataract 08/23/2018 DX:Cataract Type 2 diabetes mellitus with cataract 08/23/2018 DX:Type 2 diabetes mellitus with cataract (HCC) Migraine with aura 08/23/2018 DX:Migraine w ith aura Carpal tunnel syndrome 08/23/2018 DX:Carpal tunnel syndrome Essential tremor 08/23/2018 DX:Essential tr emor Type 2 diabetes mellitus wit h neurological manifestations (CMS/HCC) 08/23/2018 DX:Type 2 diabet es mellitus with neurological manifestations (HCC) Type 2 diabetes mellitus wit h renal manifestations (CMS/HCC) 08/15/2011 DX:Type 2 diabetes mellitus with renal manifestations (HCC); COMMENT: Diet controlled Family History Medical History Relation Name Comments Stroke Father Lymphoma Mother Relation Name Status Comments Father Mother Social History Tobacco Use Types Packs/Day Years Used Date Smoking Tobacco: Former Cigarettes Q uit: 02/13/2002 Smokeless Tobacco: Never Tobacco Cessation:Counseling Given: Not Answered Alcohol Use Standard Drinks/Week Comments No 0 (1 standard drink = 0.6 oz pur e alcohol) Housing Instability Answer Date Recorde d Are you worried that in the next 2 months you may not have stable housing? No 01/03/2024 Food Access & Nutrition Answer Date Rec orded Do you have access to a vari ety of food including fruits and vegetables? Yes 01/03/2024 Access to Healthcare Answer Date Record ed Within the last 3 months, ho w many times did you visit the emergency department for your medical care? 0 01/03/2024 Health Literacy Answer Date Recorded How often do you need to hav e someone help you when you read instructions, pamphlets, or other written material from your doctor or pharmacy? Never 01/03/2024 Caregiver: How often do you need to have someone help you when you read instructions, pamphlets, or other written material from your doctor or pharmacy? Not on file 01/03/2024 Financial Risk Answer Date Recorded How hard is it for you to pa y for the very basics like food, housing, medical care, and air conditioning / heating? Not very hard 01/03/2024 Transportation Answer Date Recorded Has the lack of transportati on kept you from meetings, work, or from getting things needed for daily living? No Has the lack of transportati on kept you from medical appointments or from getting medications? No 01/03/2024 Social Isolation Answer Date Recorded How often do you feel lonely or isolated from th ose around you? Never 01/03/2024 Food Risk Answer Date Recorded Within the past 12 months we worried whether our food would run out before we got money to buy more. Never true 01/03/2024 Within the past 12 months th e food we bought just didn't last and we didn't have money to get more. Never true 01/03/2024 Dependent Care Answer Date Recorded Do you need help finding or paying for care for your loved ones. For example, children's counselor or elderly care for an older adult? No 01/03/2024 Education Answer Date Recorded Do you think completing more education or training, like finishing a GED, going to college, or learning a trade, would be helpful for you? No 01/03/2024 Employment and Income Answer Date Recor ded During the last four weeks, have you been actively looking for work? No 01/03/2024 Living Situation Answer Date Recorded What is your living situation? 1 03/04/2023 Sex and Gender Information Value Date Recorded Sex Assigned at Not on file Legal Sex Male 10:53 PM EST Gender Identity Not on file Sexual Orientation Not on file Obstetrics History Last Filed Vital Signs Vital Sign Reading Time Taken Comments Blood Pressure 138/66 01/05/2024 11:09 AM EST Pulse 60 01/05/2024 11:09 AM EST Temperature 35.9 ??C (96.6 ??F) 01/05/2024 11:[address] Respiratory Rate 12 01/05/2024 11:09 AM EST Oxygen Saturation - - Inhaled Oxygen Concentration - - Weight 100 kg (221 lb) 04/16/2024 8:48 AM EST Height 170.2 cm (5' 7.01 ) 04/16/2024 8:48 AM ES T Body Mass Index 34.61 04/16/2024 8:48 AM EST Plan of Treatment Upcoming Encounters Date Type Department Care Team (Late st Contact Info) Description 06/17/2024 10:15 AM EDT Office Visit Adult Medicine [facility] [place] [address] [place], [place] [phone] Swapnil Ghosh NP [address] [place] 06/18/2024 9:45 AM EDT Office Visit Orthopedic Surgery - [place] [address] [phone] Juan Martinez, GERARDO [address] [address] Health Maintenance Due Date Last Done Comments Zoster Vaccines (2 of 3) 02/24/2015 12/30/2014 RSV Immunization Patients 60+ Years Old (1 - 1-dose 75+ series) 07/29/2018 Medicare Annual Wellness Visit 01/22/2022 Diabetes: Annual Retina Eye Exam 11/23/2022 11/23/2021 Diabetes: Annual Foot Exam 10/19/2023 10/18/2022 Diabetes: Blood Sugar Control Test (HGBA1C) 06/30/2024 01/01/2024, 08/14/2023, 02/17/2023 Diabetes: Annual Urine Albumin-Creatinine Ratio (uACR) 12/31/2024 01/01/2024, 11/22/2022 Depression Screening 01/02/2025 01/03/2024 Social Influencers of Health Screening 01/02/2025 01/03/2024 Falls Risk Assessment 01/04/2025 01/05/2024 Diabetes: Annual GFR (Glomerular Filtration Rate) 03/02/2025 03/02/2024 Hypertension/CHF/CAD Annual BMP Blood Test 03/02/2025 03/02/2024 Cholesterol Screening (Lipid Panel) 03/02/2029 03/02/2024, 11/22/2022 DTaP,Tdap,and Td Vaccines (4 - Td or Tdap) 11/13/2033 11/14/2023, 05/01/2006, 05/01/2006 Pneumococcal Vaccine: 50+ Years Completed 03/07/2023, 11/30/2021, 01/11/2010 Influenza Vaccine Completed 11/14/2023, , 11/03/2021, Additional history exists COVID-19 Vaccine Completed 01/26/2024, , 06/03/2021, Additional history exists HIB Vaccines Aged Out No longer eligi ble based on patient's age to complete this topic HPV Vaccines Aged Out No longer eligi ble based on patient's age to complete this topic Hepatitis A Vaccines Aged Out No long er eligible based on patient's age to complete this topic Hepatitis B Vaccines Aged Out No long er eligible based on patient's age to complete this topic IPV Vaccines Aged Out No longer eligi ble based on patient's age to complete this topic MMR Vaccines Aged Out No longer eligi ble based on patient's age to complete this topic Meningococcal ACWY Vaccine Aged Out N o longer eligible based on patient's age to complete this topic Meningococcal B Vacine Aged Out No lo nger eligible based on patient's age to complete this topic RSV Immunization Patients Under 20 months Aged Out No longer eligible based on patient's age to complete this topic Varicella Vaccines Aged Out No longer eligible based on patient's age to complete this topic Procedures Procedure Name Priority Date/Time Associated Diagnosis Comments POC GLUCOSE Routine 03/20/2024 1:07 PM EST Type 2 diabetes mellitus with neurological manifestations ([facility]) XR KNEE 4+ VIEWS RIGHT Routine 03/20/2024 9:33 AM EST Chronic pain of right knee CT ARTHROCENTESIS/ASPIR ATION/INJECTION MAJOR JOINT/BURSA W/O U/S GUIDANCE Routine 03/20/2024 9:30 AM EST Primary osteoarthritis of right knee MICROALBUMIN CREATININE URINE RATIO Routine 01/01/2024 8:10 AM EST Type II or unspecified type diabetes mellitus with neurological manifestations, not stated as uncontrolled(250.60) ([facility]) HEMOGLOBIN A1C Routine 01/01/2024 8:10 AM EST Type II or unspecified type diabetes mellitus with neurological manifestations, not stated as uncontrolled(250.60) (CMS/[facility]) from Last 3 Months or Most Recently Relevant to Health Maintenance Results * POC glucose manually resulted (03/20/2024 1:07 PM EST) Glucose POC 181 mg/dL Blood Capillary blood specimen / Unknown 03/20/2024 1:07 PM EST Boris Owens MD POINT OF CARE TEST ENTER/EDIT OR DERABLES Final Result * XR Knee 4+ Views Right (03/20/2024 9:33 AM EST) Anatomical Region Laterality Modality Lower Extremities, Knee Right Computed Radiography Narrative 03/20/2024 1:08 PM EST Date of Visit: 03/20/2024 Reason for visit: ?? Right knee pain Views: AP, Lateral, [place], [place] right knee Findings: On AP view there is severe narrowing through the medial greater than lateral compartment with near [id number] articulation, subchondral sclerosis. ??Moderate degenerative changes seen through the patellofemoral compartment on both lateral and sunrise view. ??No acute findings. Impression: Moderate to severe osteoarthritis right knee Sanaz Dannenhoffer EDGER OPERATOR IMG XR PROCEDURES Final Result * CT ARTHROCENTESIS/ASPIRATION/INJECTION MAJOR JOINT/BURSA W/O U/S GUIDANCE (03/20/2024 9:30 AM EST) Narrative Adilson Ramos MD - 03/20/2024 9:30 AM EST Sanaz Sanchez EDGER OPERATOR ? 03/20/2024 ??1:09 PM L Inj/Asp: R knee Indications: pain Details: 25 G needle, anterolateral approach Medications: 40 mg triamcinolone acetonide 40 mg/mL Outcome: tolerated well, no immediate complications Informed Consent: ??Laterality: ??Right ??Relevant images/test results available and reviewed: yes ?Health status cleared: ??Yes ??Procedure/treatment, purpose, treatment alternatives, risks/potential complications and benefits explained: yes ?Patient questions answered: yes ?Patient agrees, verbalizes understanding, and wants to proceed: yes ?Consent given by: ??Patient ??Informed consent discussion completed by Physician/DAWN with patient: ?? Verbal ??Pre-procedure timeout performed: yes ?? Sanaz Sanchez EDGER OPERATOR IN CLINIC/BEDSIDE ORDER SAMIA Final Result * Microalbumin creatinine urine ratio (01/01/2024 8:10 AM EST) Creatinine, Urine 94.0 mg/dL LAB CHEMISTRY METHOD 01/01/2024 10:46 AM EST [facility] Microalb, Ur 14.5 0.0 - 29.0 mg/L LAB CHEMISTRY METHOD 01/01/2024 10:46 AM EST [facility] Microalb/Creat Ratio 15 <30 mg/g creat LAB CHEMISTRY METHOD 01/01/2024 10:46 AM EST [facility] Urine Urine specimen obtained by clean catch procedure / Unknown Non-blood Collection / Unknown 01/01/2024 8:10 AM EST 01/01/2024 8:10 AM EST Boris Owens MD LAB URINE ORDERABLES Final Resul t Performing Organization Address City/[facility]/ZIP Co de Phone Number [facility] [address] [place] [address], [place] [phone] * Hemoglobin A1c (01/01/2024 8:10 AM EST) Hemoglobin A1C 5.5 <6.5 % LAB CHEMISTRY METHOD 01/02/2024 7:39 PM EST [facility] Mean Bld Glu Estim. 111 mg/dL LAB CHEMISTRY METHOD 01/02/2024 7:39 PM EST [facility] Blood Venous blood specimen / Unknown Venipuncture / Unknown 01/01/2024 8:10 AM EST 01/01/2024 8:10 AM EST Boris Owens MD LAB BLOOD ORDERABLES Final Resul t Performing Organization Address [facility]/ZIP Co de Phone Number [facility] [address] [place] [address], [place] [phone] from Last 3 Months or Most Recently Relevant to Health Maintenance Insurance [facility] MEDICARE Care Teams Neuroscientist Relationship Specialty Start Date End Date Boris Owens MD [address] [place] [address] PCP - General Internal Medicine 01/01/21
--- OUTSIDE RECORDS SUMMARY | 2024-05-07 11:36 | XMS_ITS | Encounter Summary ---
Author Organization [facility] Address [address] [place] [address] Care Team Providers Care Parker Name Role Phone Boris Owens MD Primary Care Provider [phone] Reason for Visit * Reason Comments DM Foot Care type 2 diabetes krystal itus with neurological manifestations (CMS/HCC)PAD (peripheral artery disease) (CMS/HCC)Arthritis of both feetHammertoes of both feetDermatophytosis, nailChronic pain of right knee Encounter Details Date Type Department Care Team (Latest Contact Info) Description 04/16/2024 8:45 AM EST Office Visit Orthopedic Surgery - [place] [address] [phone] Juan Martinez, DPM [address] [address] Type 2 diabetes mellitus with neurological manifestations (CMS/HCC) (Primary Dx); PAD (peripheral artery disease) (CMS/HCC); Arthritis of both feet; Hammertoes of both feet; Dermatophytosis, nail Social History Tobacco Use Types Packs/Day Years Used Date Smoking Tobacco: Former Cigarettes Q uit: 02/13/2002 Smokeless Tobacco: Never Alcohol Use Standard Drinks/Week Comments No 0 [...] care for your loved ones. For example, registered nurse maternal child or elderly care for an older adult? [...] on file Sexual Orientation Not on file documented as of this encounter Last Filed Vital Signs Vital Sign Reading Time Taken Comments Blood Pressure - - Pulse - - Temperature - - Respiratory Rate - - Oxygen Saturation - - Inhaled Oxygen Concentration - - Weight 100 kg (221 lb) 04/16/2024 8:48 AM EST Height 170.2 cm (5' 7.01 ) 04/16/2024 8:48 AM ES T Body Mass Index 34.61 04/16/2024 8:48 AM EST documented in this encounter Progress Notes * Juan Martinez DPM - 04/16/2024 8:45 AM EST Referring MD: anastacio Last PCP visit: 03/02/2024 IDENTIFIER: @TITLE@ Mono is a 78 y.o. year old male who presents for consultation. CC: Bilateral foot pain HPI: Patient returns for multiple forefoot deformities Patient states that they have been diabetic for the past few years and has tingling numbness of feet bilaterally Patient notes that his ulceration continues to stay healed to the left leg He notes his nails continue be thickened and misshapened causing pain in close toed shoes Patient is wearing good supportive shoes at this time. Patient relates that he has been able to follow-up with orthopedics for his knee and is happy with the progress he is making Patient reports mild calluses that are becoming bothersome. Patient with minimal other pedal complaints at this time. Patient's FBS this AM was 100 Recent A1C is %. 6.6 ROS: GENERAL: Pt denies nausea, fever, vomiting, chills, or shortness of breath. Pt in NAD. CARDIOLOGY: pt denies chest pain, palpitations LUNGS: pt denies shortness of breath MUSCULOSKELETAL: See HPI, otherwise no joint pain or swelling, back pain, or muscle pain. SKIN: see HPI, otherwise no lesions, rash or itching NEURO: No persistent headache, weakness or numbness The remainder of the review of systems is noncontributory PAST MEDICAL HISTORY: Patient Active Problem List Diagnosis Gout Hypothyroidism Primary hypertension Renal calculi AAA (abdominal aortic aneurysm) without rupture (CMS/HCC) Venous insufficiency of both lower extremities Vertigo, benign positional Lung nodule PAD (peripheral artery disease) (CMS/HCC) Microalbuminuria Hyperlipemia Chronic sinusitis Osteoarthritis Cataract Migraine with aura Carpal tunnel syndrome Essential tremor Type 2 diabetes mellitus with neurological manifestations ([facility]) Chronic venous insufficiency Type 2 diabetes mellitus with retinopathy ([facility]) Vitamin B 12 deficiency Cervical spine disease Grade II hemorrhoids Type 2 diabetes mellitus with renal manifestations ([facility]) Oral thrush Severe obesity (BMI 35.0-35.9 with comorbidity) ([facility]) History of tobacco abuse Need for prophylactic vaccination against Streptococcus pneumoniae (pneumococcus) Class 1 obesity Fever Gastroesophageal reflux disease without esophagitis Hallux rigidus of right foot Hyperglycemia due to diabetes mellitus ([facility]) Neck pain Real time reverse transcriptase PCR positive for COVID-19 virus Rigors Sensation of foreign body in throat Sore throat Candidiasis of mouth SOCIAL HISTORY: Social History Tobacco Use Smoking status: Former Current packs/day: 0.00 Types: Cigarettes Quit date: 02/13/2002 Years since quittin.1 Smokeless tobacco: Never Substance Use Topics Alcohol use: No ACTIVE MEDICATIONS: Outpatient Medications Marked as Taking for the 04/16/24 encounter (Office Visit) with Juan Martinez DPM Medication Sig Dispense Refill acyclovir (ZOVIRAX) 5 % ointment Apply topically 6 (six) times a day. Space applications every 3 hours. 15 g 1 aspirin 81 mg EC tablet Take 1 tablet (81 mg total) by mouth. atenoloL (TENORMIN) 50 mg tablet Take 1 tablet (50 mg total) by mouth 1 (one) time each day. blood sugar diagnostic (FreeStyle Lite Strips) test strip Use as instructed 200 each 3 blood-glucose meter kit 1 kit by Not Applicable route. cholecalciferol (VITAMIN D-3) 10 mcg (400 unit) tablet Take 1 tablet (400 Units total) by mouth 1 (one) time each day. ciclopirox (PENLAC) 8 % solution Apply daily to nails clean medication residue off of nail plate every 3 days with rubbing alcohol Cinnamon 500 mg capsule Take by mouth. cyanocobalamin (VIT B-12) 1,000 mcg tablet extended release ER tablet Take by mouth. diclofenac (VOLTAREN) 1 % topical gel Apply 1 g topically. doxycycline (ADOXA) 50 mg tablet Take 1 tablet (50 mg total) by mouth 2 (two) times a day. Take with a full glass of water and do not lie down for at least 30 minutes after. FLAXSEED OIL ORAL Take by mouth. FREESTYLE LANCETS MISC USE TO CHECK BLOOD SUGARS 3 TIMES DAILY glucosamine/D3/boswellia amrik (GLUCOSAMINE DAILY COMPLEX ORAL) Take by mouth. hydrocortisone (ANUSOL-HC) 2.5 % rectal cream Apply 1 Dose topically. lecithin, soy 1,200 mg capsule capsule Take by mouth. levothyroxine (SYNTHROID, LEVOTHROID) 175 mcg tablet Take 1 tablet (175 mcg total) by mouth 1 (one)time each day before breakfast. 90 tablet 1 lisinopril (ZestriL) 40 mg tablet Take 1 tablet (40 mg total) by mouth 1 (one) time each day. meclizine (ANTIVERT) 25 mg tablet metroNIDAZOLE (METROCREAM) 0.75 % cream Apply sparingly once or twice daily to affected areas on face as needed OMEGA-3 FATTY ACIDS-FISH OIL ORAL Take by mouth. predniSONE (DELTASONE) 20 mg tablet TAKE 3 TABLETS DAILY FOR 3 DAYS, THEN 2 TABLETS FOR 3 DAYS, THEN 1 TABLET FOR 3 DAYS - GENERIC FOR DELTASONE 90 tablet 1 probenecid (BENEMID) 500 mg tablet TAKE 1 TABLET DAILY (GENERIC FOR BENEMID) sildenafiL (VIAGRA) 50 mg tablet TAKE 1 TABLET BY MOUTH 1 HOUR BEFORE NEEDED DIRECTED 6 tablet 5 simvastatin (ZOCOR) 40 mg tablet Take 1 tablet (40 mg total) by mouth. triamcinolone (KENALOG) 0.1 % dental paste APPLY TO MOUTH SORE 2 TIMES DAILY NEEDED (GENERIC FORKENALOG) Vitamin C tablet Take 1 tablet (100 mg total) by mouth. vitamin E, dl,tocopheryl acet, (vitamin E, dl, acetate,) 45 mg (100 unit) capsule Take 1 capsule (100 Units total) by mouth. ALLERGIES: @ALL@ PHYSICAL EXAM: Height 1.702 m (67.01 ), weight 100 kg (221 lb). PODIATRIC EXAMINATION: GENERAL: Patient appears well nourished, with NAD. VASCULAR: Dorsalis pedis pulses are 2/4 bilaterally and Posterior tibial pulses are 0/4 bilaterally. Capillary filling time within normal limits the digits. No pallor on elevation or rubor on dependency. Positive hair growth. Many varicosities. +1 pitting edema bilaterally. Denies rest pain or claudication pain. NEUROLOGICAL: Sharp/dull sensation intact, protective sensation diminished on [place]. Multiple peripheral neuropathies bilaterally ORTHOPEDIC: Good muscle strength 5/5 of all flexors and extensors. Dorsi flexion of ankle ,10 degrees, plantar flexion WNL. No muscle atrophy. Arthritic changes to the midfoot. Curvature to digits 2 through 5. Flexible flatfoot deformity with collapse of the midfoot. DERMATOLOGICAL:.Multiple areas of xerosis throughout the plantar aspect of the feet bilaterally. Normal skin temperature, normal skin turgor. Nails are elongated dystrophic discolored x 10 with subungual debris BIOMECHANICS: STJ ROM wnl, MTJ ROM wnl, 1st MPJ ROM wnl. IMPRESSION: 1. Type 2 diabetes mellitus with neurological manifestations ([facility]) 2. PAD (peripheral artery disease) ([facility]) 3. Arthritis of both feet 4. Hammertoes of both feet 5. Dermatophytosis, nail PLAN: Pt was seen and examined, history reviewed. Patient instructed to continue with tight glucose control in order to limit chance of ulceration nonhealing wounds and infections in the future Patient continues to suffer with arthritic changes of the midfoot bilaterally. Patient encouraged to wear supportive shoe as often as possible for ambulatory purposes in order to limit breakdown of midtarsal joint and symptomatic flareups Patient has continued hammertoes to bilateral feet. Patient encouraged to wear an offloading style or more typical hammertoe crutch in order to prevent preulcerative lesions from developing to the distal roverto Patient has decreased pulses bilateral limbs. Patient encouraged to ambulate as often as possible to promote blood flow to the feet Nail debridement performed to nails 1-5 bilateral as nails were described to be causing pain and difficulty for walking while in shoegear at their previous length. They were debrided in thickness andlength, with no incident. Clinical evidence of mycosis is documented which required active treatment. Patient expressed immediate relief. Patient is to RTC in 9 weeks Juan Martinez DPM documented in this encounter Plan of Treatment Upcoming Encounters Date Type Department Care Team (Late st Contact Info) Description 06/17/2024 10:15 AM EDT Office Visit [address] [phone] Swapnil Ghosh NP [address] [place] [address] 06/18/2024 9:45 AM EDT Office Visit Orthopedic Surgery - [place] [address] [phone] Juan Martinez, DPDaniel [address] [address] documented as of this encounter Visit Diagnoses Diagnosis Type 2 diabetes mellitus with neurological manifestations ([facility])- Primary Type II or unspecified type diabetes mellitus with neurological manifestations, not stated as uncontrolled PAD (peripheral artery disease) ([facility]) Unspecified peripheral vascular disease Arthritis of both feet Hammertoes of both feet Dermatophytosis, nail Dermatophytosis of nail documented in this encounter Additional Health Concerns Assessment Noted Time PHQ-9 Depression Total Score: 0 01/03/20 9:17 AM EST documented as of this encounter Care Teams Parker Relationship Specialty Start Date End Date Boris Owens MD [address] [place] [address] PCP - General Internal Medicine 01/01/21 documented as of this encounter
--- OUTSIDE RECORDS SUMMARY | 2024-05-07 11:36 | XMS_ITS | Data Portability ---
Author Organization [place] - [facility], Allergy Address [address] [phone] Care Team Providers Care Bar Steward Name Role Phone RITU PATRICIO Primary Care Provider Assessment Encounter Date Assessment Date Assessment LastModified by Organization Details LastModified Time 07/12/2023 07/12/2023 77 year old male with about six months of a sensation of excess mucus in the the throat. Fiberoptic laryngoscopy today was suggestive of acid reflux. Recommend a trial of omeprazole. He will take it at least 2 hours after his levothyroxine. Follow up in six weeks for reassessment of symptoms. [email or web address] Not available 07/12/2023 13:40:37 08/24/2023 08/24/2023 78 year old male with a sensation of mucus in the throat. No improvement with omeprazole. Examination today is stable. He will discontinue the omeprazole and he will start ipratropium nasal spray twice daily. We will plan on a phone follow up in six weeks. bczarick Not available 08/24/2023 10:04:33 Plan of Treatment Reminders Order Date Submit Date Provider Last Modified By Organization Details Last Modified Time Details Appointments None recorded. Lab None recorded. Referral None recorded. Procedures None recorded. Surgeries None recorded. Imaging None recorded. Medication Orders ipratropium bromide 21 mcg (0.03 %) nasal spray 2023 [facility] #[id number], [address] [place], [place], [id number], 10:05:20 omeprazole 20 mg capsule,del ayed release 2023 024 [facility] #[id number], [address] [place], [place], [id number], 13:41:16 Patient TargetsNo targets recorded. Patient InstructionsNo instructions recorded. Reason for Referral None Reported. Problems Name Problem SNOMED Code Status Onset Date Resolution Date Notes Provider Name and Address Organization Details Recorded Time Sensation of foreign body in throat 5201976240957 04 Active 2023 HIRA BERNARDO PA-C [address] [place] [address],[place] [address], [place], [phone], [facility] 4 13:39:46 Gastroesoph ageal reflux disease without esophagitis 062050341 Active 2023 HIRA BERNARDO PA-C [address] [place] [address],[place] [address], [place], [phone], [facility] 4 13:39:52 Problem Notes None recorded. Procedures Surgical History Date Name Laterality Status Provider Name and Address Organization Details Recorded Time 07/12/19 24 Fiberoptic Laryngoscopy (Comprehensive) completed HIRA BERNARDO PA-C [address] [place] [address],[address], [phone], [facility] 07/12/2023 13:39:32 Imaging Results None recorded. Procedure Notes None recorded. Medical Equipment None Reported. Allergies No known drug allergies Medications Name Sig Start Date Stop Date Status Note LastModified by Organization Details LastModified Time freestyle lite test strips strp active Not Available Not Available Not Available levothyroxi ne 175 mcg tablet active Not Available Not Available Not Available primidone 50 mg tablet TAKE 1 TABLET BY MOUTH TWICE DAILY active Not Available Not Available No t Available polyethylen e glycol 3350 17 gram oral powder packet MIX AND DRINK 1 PACKET BY MOUTH DAILY 08/23 completed Not Available Not Available Not Available sildenafil 50 mg tablet TAKE 1 TABLET BY MOUTH 1 HOUR BEFORE NEEDED DIRECTED 08/23 completed Not Available Not Available Not Available prednisone 20 mg tablet TAKE 3 TABLETS BY MOUTH DAILY FOR 3 DAYS THEN TAKE 2 TABLETS BY MOUTH DAILY FOR 3 DAYS THEN TAKE 1 TABLET BY MOUTH DAILY FOR 3 DAYS 08/23 completed Not Available Not Available Not Available simvastatin 40 mg tablet active Not Available Not Available Not Available hydrocortis one 2.5 % topical cream with perineal applicator APPLY TOPICALLY TO THE AFFECTED AREA TWICE DAILY NEEDED FOR PAIN active Not Available Not Available No t Available doxycycline monohydrate 50 mg capsule TAKE 1 CAPSULE BY MOUTH DAILY WITH FOOD 08/23 completed Not Available Not Available Not Available triamcinolo ne acetonide 0.1 % dental paste APPLY TO MOUTH SORE TWICE DAILY NEEDED 08/23 completed Not Available Not Available Not Available tamsulosin 0.4 mg capsule TAKE 1 CAPSULE BY MOUTH EVERY NIGHT AT BEDTIME active Not Available Not Available No t Available metronidazo le 0.75 % topical cream APPLY TOPICALLY TO FACE EVERY DAY IN THE MORNING 08/23 completed Not Available Not Available Not Available omeprazole 20 mg capsule,del ayed release TAKE 1 CAPSULE BY MOUTH EVERY DAY IN THE MORNING active Not Available Not Available No t Available lisinopril 40 mg tablet TAKE 1 TABLET BY MOUTH DAILY active Not Available Not Available No t Available atenolol 50 mg tablet TAKE 1 TABLET BY MOUTH DAILY active Not Available Not Available No t Available ipratropium bromide 21 mcg (0.03 %) nasal spray [place] 2 sprays twice a day by intranasa l route for 30 days. 2023 active Not Available Not Available Not Avai lable probenecid 500 mg tablet active Not Available Not Available Not Available cyclobenzap rine 5 mg tablet TAKE 1 TABLET BY MOUTH THREE TIMES DAILY FOR UP TO 15 DAYS NEEDED FOR MUSCLE SPASMS 08/23 completed Not Available Not Available Not Available azelaic acid 15 % topical gel 08/23 completed Not Available Not Available Not Available ciclopirox 1 % shampoo active Not Available Not Available Not Available mometasone 0.1 % topical solution active Not Available Not Available Not Available FreeStyle Lite Meter kit USE TO CHECK BLOOD SUGARS EVERY DAY active Not Available Not Available No t Available diclofenac 1 % topical gel 08/23 completed Not Available Not Available Not Available BinaxNOW COVID-19 Ag Self Test kit TEST DIRECTED TODAY active Not Available Not Available No t Available aspirin 81 mg capsule Take 1 capsule every day by oral route. active Not Available Not Available No t Available Paxlovid 300 mg (150 mg x 2)-100 mg tablets in a dose pack TK 2 NIRMATREL VIR TS AND 1 RITONAVIR T TOGETHER PO BID FOR 5 DAYS active Not Available Not Available No t Available Vitals Date Recorded Body height Body mass index (BMI) Body weight Provider Name and Address Organization Details Last Updated DateTime 08/24/2023 170.18 cm 33.7 kg/m2 54826.36 g Mindi Chris [facility] 08/24/2023 09:44:46 Date Recorded Body height Body mass index (BMI) Body weight Provider Name and Address Organization Details Last Updated DateTime 07/12/2023 170.18 cm 33.7 kg/m2 09723.36 g Ashlynzoila Cerrato [facility] 07/12/2023 13:15:11 Social History None recorded. Functional Status None recorded. Mental Status None recorded. Family History Nothing Reported. Medical History No medical history recorded. Past Encounters Encounter ID Performer Location Encounter Start Date Encounter Closed Date Diagnosis/Indication Diagnosis SNOMED-CT Code Diagnosis ICD10 Code Diagnosis Note [id number] HIRA BERNARDO PA-C [facility] on [address] [place] [phone] 07/12/2023 12:19:32 07/18/2023 14:21:20 Sensation of foreign body in throat [id number] 24093 R09.A2 Gastroesop hageal reflux disease without esophagitis 428248776 K21.9 [id number] HIRA BERNARDO PA-C [facility] on [address] [place] [phone] 08/24/2023 09:38:25 08/24/2023 13:14:53 Sensation of foreign body in throat 8879029811 08769 R09.A2 Health Concerns Section Related Observation LastModified by Organization Detai ls LastModified Time None Recorded Concern Status LastModified by Organization Details LastModified Time None Recorded Advance Directives Directive None Recorded Payers Encounter Date Sequence Insurance Name Policy Number Policy Cardozo Covered Member ID Cardozo Member ID Guarantor Name 07/12/2023 1 [employer] - MEDICARE ADVANTAGE PLAN (MEDICARE REPLACEMENT HMO) [id number] 1 Sam Villareal [id number] Sam Villareal 08/24/2023 1 [employer] - MEDICARE ADVANTAGE PLAN (MEDICARE REPLACEMENT HMO) [id number] Sam Villareal [id number] Sam Villareal Notes Date Note Type Note Provider Name and Address Organization Details Recorded Time 07/12/2023 text/html 77 year old male presents today for evaluation of excess mucus in his throat.He reports symptoms have been present for more than six months now. Symptoms tend to be worse in the morning. He had a chest x-ray as ordered by his PCP which was normal. He was then referred here for further evaluation.He has no symptoms of nasal congestion or nasal drainage. Reports normal sense of smell. No throat pain or dysphagia. Reports he cannot sing a well as he used to.He denies any history of seasonal allergies. He has no history of acid reflux or GERD.He is a former pipe and cigar smoker, but he quit 25 years ago. He drinks extremely rarely. He does drink coffee. HIRA BERNARDO PA-C [address], [address], [facility] - [facility] 07/12/2023 13:42:06 08/24/2023 text/html 77 year old male seen for six months of a sensation of excess mucus in the the throat.Fiberoptic laryngoscopy was suggestive of acid reflux. He was placed on omeprazole. He has been taking the omeprazole daily with persistent symptoms. He continues to clear mucus, most often in the mornings. HIRA BERNARDO PA-C [address], [address], [facility] - [facility] 08/24/2023 10:05:16
--- OUTSIDE RECORDS SUMMARY | 2024-05-07 11:36 | XMS_ITS ---
Author Organization [facility] Address [address] [place] [address] Care Team Providers Care Supervisor Billposting Name Role Phone Graciela STATON, Boris Avila Primary Care Provider Unav ailable Emilie Renner Unavailable [phone] Encounters Encounter Location Date Provider Diagnosis [facility] [address] [place] [address] 12/15/2022 Emilie Renner Plan Of Treatment No Information Progress Notes * Sam VILLAREAL ADOB:[birth year] (78 yo M)Acc No.[id number]:12/15/2022 Progress Notes Patient:?Sam VILLAREAL Provider:?Emilie Renner DPM :1945???Age:77 Y???Sex:Male Mitch e:12/15/2022 Address:[address] [place] [address], [address] [place], [place]-[phone] Pcp:Boris Owens MD Subjective: * Chief Complaints: * ??? * Medical History:? Objective: * Vitals:? Assessment: Plan: * Treatment: * Images: * The named appointment provid er may or may not be the originator of this progress note, and it is not deemed complete until electronically signed by the appointment provider. Sign off status: Pending * Provider:?Emilie Renner DPM Date:?2022 Generated for [place] carlin/Adria/Indiaitting on:?05/07/2024 11:36 AM EDT
--- OUTSIDE RECORDS SUMMARY | 2024-05-07 11:36 | XMS_ITS | Clinical Summary ---
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 1 Active FLAX OIL-FISH OIL-BORAGE OIL PO Take 1 capsule by mouth. 1 Active Lecithin 1200 MG capsule Take 2,400 mg by mouth. 2 Active acetaminophen (Tylenol) 325 MG tablet Take 650 mg by mouth. 2 Active acyclovir (Zovirax) 5 % ointment 2 Active Aspirin (Vazalore) 81 MG capsule Take 81 mg by mouth. 1 Active cyanocobalamin (Vitamin B-12) 100 MCG tablet Take 1,000 mcg by mouth. 1 Active Cholecalciferol (Vitamin D3) 721901 UNIT/GM powder Take 10 mcg by mouth. 2 Active alpha tocopherol (Vitamin E) 400 units capsule Take 400 Int'l Units by mouth. 2 Active Cobalamin Combinations (Vitamin S92-Fryus Acid) 500-400 MCG tablet Take 1,000 mcg by mouth. 1 Active Glucosamine HCl (GLUCOSAMINE PO) Take by mouth. 1 Active fluconazole (Diflucan) 200 MG tablet Take 200 mg by mouth in the morning. 2 Active Bisacodyl EC 5 MG EC tablet TAKE 2 TABLETS BY MOUTH RIGHT BEFORE FIRST DOSE OF LIQUID PREP 2 Active atenolol (Tenormin) 50 MG tablet 2 Active lisinopril 40 MG tablet Take 40 mg by mouth in the morning. 2 Active Glucosamine-Vit D-Hyaluron Acd (Glucosamine Plus Vitamin D3) 0814-7805-1.65 MG-UNIT-MG tablet Take by mouth. 01/20/20 2 1 Active FREESTYLE LITE test strip 2 Active hydrocortisone (Anusol-HC) 2.5 % rectal cream APPLY A SMALL AMOUNT RECTALLY TWICE DAILY FOR 2 WEEKS 2 Active ibuprofen 600 MG tablet Take 1 tablet by mouth if needed. 2 Active ketoconazole (NIZOral) 2 % shampoo 2 Active FreeStyle lancets 2 Active levothyroxine (Synthroid, Levoxyl) 175 MCG tablet Take 175 mcg by mouth. 2 Active metroNIDAZOLE (Metrocream) 0.75 % cream 2 Active oxyCODONE (Roxicodone) 5 MG immediate release tablet TAKE 1 TABLET BY MOUTH EVERY 4 HOURS NEEDED FOR MODERATE PAIN 2 Active omega-3 1000 MG capsule capsule Take by mouth. 1 Active GaviLyte-G 236 g solution MIX AND DRINK ACCORDING TO DIRECTIONS GIVEN BY THE OFFICE 2 Active polyethylene glycol, PEG, 3350 (Miralax) 17 g packet MIX AND DRINK 1 PACKET BY MOUTH DAILY 2 Active probenecid (Benemid) 500 MG tablet 2 Active simvastatin (Zocor) 40 MG tablet 2 Active tiZANidine (Zanaflex) 4 MG tablet Take 4 mg by mouth. 2 Active triamcinolone (Kenalog) 0.1 % oral paste 2 Active Encounters Date Type Department Care Team Description 04/15/2024 10:00 AM EST Office Visit [facility] [address] [place] [address] [phone] Johnnie Baez BDS 03/05/2024 8:00 AM EST Office Visit [facility] [address] [place] [phone] Hieu Olivarez DMD 02/08/2024 4:00 PM EST Office Visit [facility] [address] [place] [address] [phone] Johnnie Baez BDS from Last 3 Months Immunizations Name Administration Dates Next Due INFLUENZA INJECTABLE QUADRIV ALANT CCIIV4 MDCK Multi-dose vial 01/04/2017 Influenza, High Dose Seasona l, Preservative Free 11/03/2021,11/02/2020,11/15/2019,01/21 Influenza, IIV3, injectable 01/15/2014,1 ,11/22/2011,01/11 Pfizer Covid-19 Vaccine 12+ 12/09/2020 Pneumococcal Polysaccharide PPSV23 01/11/2010 TD (adult), 2 Lf tetanus tox oid, preservative free, adsorbed 05/01/2006 Zoster, live 12/30/2014 Social History Tobacco Use Types Packs/Day Years Used Date Smoking Tobacco: Unknown Tobacco Cessation:Counseling Given: Not Answered Alcohol Use Standard Drinks/Week Comments Not Currently 0 (1 standard drink = 0.6 oz pur e alcohol) Sex and Gender Information Value Date Recorded Sex Assigned at Male 12/13/2021 10:40 AM EDT Legal Sex Male 10:40 AM EDT Gender Identity Male 12/13/2021 10:40 AM EDT Sexual Orientation Straight 11/14/2022 2: 28 PM EDT Last Filed Vital Signs Vital Sign Reading Time Taken Comments Blood Pressure 130/72 04/15/2024 10:34 AM EST Pulse 68 02/08/2024 4:07 PM EST Temperature - - Respiratory Rate - - Oxygen Saturation - - Inhaled Oxygen Concentration - - Weight - - Height - - Body Mass Index - - Plan of Treatment Health Maintenance Due Date Last Done Comments Dental Prophylaxis 1943 Dental X-Ray: Bitewings 1943 Depression Screening 1943 Lipid Panel 1943 SDOH Screening 1943 Alcohol/Substance Use Screening 1955 Zoster Vaccines (2 of 3) 02/24/2015 12/30/2014 RSV Patients and Patients Aged 60 years or older (1 - 1-dose 75+ series) 07/29/2018 Dental Oral Exam 07/19/2022 01/17/2022 Dental X-Ray: Full Mouth 01/18/2025 01/17/2022 Tobacco Screening 04/15/2025 04/15/2024 DTaP/Tdap/Td Vaccines (2 - Td or Tdap) 11/13/2033 11/14/2023, 05/01/2006, [...] patient's age to complete this topic Meningococcal Vaccine Aged Out No wes divine eligible based on patient's age to complete this topic RSV under 20 months Aged Out No longe r eligible based on patient's age to complete this topic Rotavirus Vaccines Aged Out No longer eligible based on patient's age to complete this topic Procedures Procedure Name Priority Date/Time Associated Diagnosis Comments 28 DFF(V) RESIN-BASED COMPOSITE - 2 SURF, POSTERIOR Routine 04/15/2024 10:00 AM EST CASE PRESENTATION, DETAILED AND EXTENSIVE TREATMENT PLANNING Routine 04/15/2024 10:00 AM EST CASE PRESENTATION, DETAILED AND EXTENSIVE TREATMENT PLANNING Routine 03/05/2024 8:00 AM EST INTRAORAL - PERIAPICAL FIRST RADIOGRAPHIC IMAGE Routine 03/05/2024 8:00 AM EST LIMITED ORAL EVALUATION - PROBLEM FOCUSED Routine 03/05/2024 8:00 AM EST CASE PRESENTATION, DETAILED AND EXTENSIVE TREATMENT PLANNING Routine 02/08/2024 4:00 PM EST 21 DBB(V) RESIN-BASED COMPOSITE - 2 SURF, POSTERIOR Routine 02/08/2024 4:00 PM EST PANORAMIC RADIOGRAPHIC IMAGE Routine 01/17/2022 1:00 PM EST COMPREHENSIVE ORAL EVALUATION - NEW OR ESTABLISHED PATIENT Routine 01/17/2022 1:00 PM EST from Last 3 Months or Most Recently Relevant to Health Maintenance Insurance DENTAL - [facility] PARTIAL (MEDICAID)
== END 2024-05-07 10:20 | disposition home or self-care (01) ==
LOC: HO.HVS 09:57
PROVIDERS: PCP Internal Medicine; Visit Provider Surgery Vascular Surgery
DX: I73.9 Peripheral vascular disease, unspecified (principal); I71.43 Infrarenal abdominal aortic aneurysm, without rupture; I65.23 Occlusion and stenosis of bilateral carotid arteries
CPT/HCPCS: 99214; G2211

== ENCOUNTER → 2024-05-07 09:57 | Outpatient (BNVA) | payer MEDICARE, SELFPAY | PROVIDERS: PCP Internal Medicine; Visit Provider Surgery Vascular Surgery | DX: I73.9 Peripheral vascular disease, unspecified (principal); I71.43 Infrarenal abdominal aortic aneurysm, without rupture; I65.23 Occlusion and stenosis of bilateral carotid arteries | CPT/HCPCS: 99212 ==

== ENCOUNTER 2024-12-04 15:02 | Outpatient (AMB) | payer MEDICARE, SELFPAY ==
--- OUTSIDE RECORDS SUMMARY | 2024-12-03 14:00 | XMS_ITS | Encounter Summary ---
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 Phone Unavailable Primary Care Provider Unavailabl e Reason for Visit * Reason Comments Routine Cleaning Encounter Details Date Type Department Care Team (Late st Contact Info) Description 12/03/2024 2:00 PM EDT Office Visit [facility] [address] [place] [address] [phone] Mahsa Mckenna [address] [place], [place] [phone] Social History Tobacco Use Types Packs/Day Years Used Date Smoking Tobacco: Unknown Alcohol Use Standard Drinks/Week Comments Yes 0 (1 standard drink = 0.6 oz pur e alcohol) Sex and Gender Information Value Date Recorded Sex Assigned at Male 12/13/2021 10:40 AM EDT Legal Sex Male 10:40 AM EDT Gender Identity Male 12/13/2021 10:40 AM EDT Sexual Orientation Straight 11/14/2022 2: 28 PM EDT documented as of this encounter Last Filed Vital Signs Vital Sign Reading Time Taken Comments Blood Pressure 136/74 12/03/2024 2:00 PM EDT Pulse 85 12/03/2024 2:00 PM EDT Temperature - - Respiratory Rate - - Oxygen Saturation - - Inhaled Oxygen Concentration - - Weight - - Height - - Body Mass Index - - documented in this encounter Progress Notes * Mahsa Mckenna - 12/03/2024 2:00 PM EDT Patient ID: Sam Villareal is a 79 y.o. male. 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 Confirmed via patient's chart, intraorally and by radiographs. Hoist Worker: not applicable Treatment Provided Dental procedures in this visit D1110 - PROPHYLAXIS - ADULT (Completed) Service provider: Mahsa Roberts provider: Hieu Olivarez DMD D0220 - INTRAORAL - PERIAPICAL FIRST RADIOGRAPHIC IMAGE (Completed) Service provider: Mahsa Mckenna [place] provider: Hieu Olivarez DMD D0230 - INTRAORAL - PERIAPICAL EACH ADDITIONAL RADIOGRAPHIC IMAGE (Completed) Service provider: Mahsa Mckenna [place] provider: Hieu Olivarez DMD [id number] - CASE PRESENTATION, DETAILED AND EXTENSIVE TREATMENT PLANNING (Completed) Service provider: Mahsa Roberts provider: Hieu Olivarez DMD Instruments Used: Ultrasonic Scalers and Prophy angle Calculus: None Plaque: Light Stain: Light Bleeding: Light Gingiva: Perio Charting Completed OH: Fair OCS: neg findings HNE: neg findings Oral hygiene instructions provided to patient including brushing technique and flossing. Recommendations: Floss daily Recall Frequency: 6 mo NV: Hygienist: Mahsa Mckenna RDH Cosigned by Hieu Olivarez DMD at 12/03/2024 3:04 PM EDT * Hieu Olivarez DMD - 12/03/2024 2:00 PM EDT C/C: dental exam and no dental pain at this time I.O.E: erythematous and edematous gingiva, gen plaque accumulation, , no sensitive to percussion of#21,28, gingival recession teeth E.O.E: NSF OCS: NSF Head and neck: NSF Radiographic: distal subgingival root pulp involved filling #21,28, distal root carious tooth#21 Diagnosis: pulp involved root filling #21,28, root carious tooth#21 Treatment: prophy, recall exam, monitor #21,28 Pt does not want to have any exo at this time Lizeth documented in this encounter Plan of Treatment Upcoming Encounters Date Type Department Care Team (Late st Contact Info) Description 06/09/2025 2:15 PM EDT Office Visit [facility] [address] [place] [address] Amilcar Thomas Scheduled Orders Name Type Priority Associated Diagnoses Orde r Schedule PROPHYLAXIS - ADULT Dental Routine 1 Occ urrences starting 12/03/2024 documented as of this encounter Procedures Procedure Name Priority Date/Time Associated Diagnosis Comments PROPHYLAXIS - ADULT Routine 12/03/2024 2 :00 PM EDT PERIODIC ORAL EVALUATION - ESTABLISHED PATIENT Routine 12/03/2024 2:00 PM EDT INTRAORAL - PERIAPICAL FIRST RADIOGRAPHIC IMAGE Routine 12/03/2024 2:00 PM EDT INTRAORAL - PERIAPICAL EACH ADDITIONAL RADIOGRAPHIC IMAGE Routine 12/03/2024 2:00 PM EDT CASE PRESENTATION, DETAILED AND EXTENSIVE TREATMENT PLANNING Routine 12/03/2024 2:00 PM EDT 28 ABUTMENT SUPPORTED CAST METAL CROWN (PREDOMINANTLY BASE METAL) Routine 12/03/2024 12:00 AM EDT 28 ROOT CANAL Routine 12/03/2024 12:00 AM EDT documented in this encounter Visit Diagnoses Not on filedocumented in this encounter
--- OUTSIDE RECORDS SUMMARY | 2024-12-04 09:30 | XMS_ITS | Encounter Summary ---
Author Organization [employer] Address [address] [place] [address] Care Team Providers Care Plumber Apprentice Name Role Phone Boris Owens MD Primary Care Provider [phone] Reason for Referral * Orthopedic (Routine) - Pending Review Specialty Diagnoses / Procedures Referred By Reyes pérez Referred To Contact Orthopedic Surgery / Orthopaedic Surgery Diagnoses Primary osteoarthritis of both knees Procedures L Inj/Asp: R knee Carlos Hutchinson PA [address] [place] [phone] Phone: tel: fax: Referral ID Status Reason Start Date Expiration Date V isits Requested Visits Authorized [id number] Pending Review 12/04/2024 12/04/2025 1 1 Reason for Visit * Reason Comments Follow-up Pain Follow-up Pain Encounter Details Date Type Department Care Team (Late st Contact Info) Description 12/04/2024 9:30 AM EDT Office Visit Orthopedics - [address] [phone] Carlos Hutchinson PA [address] [place] [phone] Primary osteoarthritis of both knees (Primary Dx); Nontraumatic rupture of right long head biceps tendon; Acute pain of right shoulder Social History Tobacco Use Types Packs/Day Years [...] care for your loved ones. For example, child care aide or elderly care for an older adult? [...] Date Recorded What is your living situation? Unrecognized valu e 01/03/2024 Sex and Gender Information Value Date Recorded Sex Assigned at Not on file Legal Sex Male 10:53 PM EST Gender Identity Not on file Sexual Orientation Not on file documented as of this encounter Last Filed Vital Signs Vital Sign Reading Time Taken Comments Blood Pressure - - Pulse - - Temperature - - Respiratory Rate 16 12/04/2024 9:18 AM EDT Oxygen Saturation - - Inhaled Oxygen Concentration - - Weight 97.5 kg (215 lb) 12/04/2024 9:18 AM EDT Height 170.2 cm (5' 7 ) 12/04/2024 9:18 AM EDT Body Mass Index 33.67 12/04/2024 9:18 AM EDT documented in this encounter Progress Notes * KEVIN Cabrera - 12/04/2024 9:30 AM EDTAssociated Order(s): L Inj/Asp: R knee Post-Procedure Diagnose(s): Primary osteoarthritis of both knees CHIEF COMPLAINT: Follow-up of the Right Knee, Pain and Follow-up of the Right Shoulder, and Pain ofthe Left Shoulder had concerns including Follow-up of the Right Knee, Pain and Follow-up of the Right Shoulder, and Pain of the Left Shoulder. IDENTIFIER: Sam Villareal is a 79 y.o. old male. HPI: Sam Villareal is here for follow up on knee pain. Patient is here for pain right knee. He is previously seen in our [place] office for this and had injection in March 2024. He is still in the right shoulder plan discussed this at his follow-up. We recently x-rays performed demonstrated moderate to severe arthritis both knees. We reviewed and can trial another knee injection PHYSICAL EXAM: Vitals: 12/04/24 0918 Resp: 16 Weight: 97.5 kg (215 lb) Height: 1.702 m (67 ) L Inj/Asp: R knee Indications: pain Details: 22 G needle, anterolateral approach Medications: 4 mL lidocaine 1 %; 80 mg methylPREDNISolone acetate 80 mg/mL Informed Consent: Site: Knee Laterality: Right Relevant images/test results available and reviewed: yes Health status cleared: Yes Procedure/treatment, purpose, treatment alternatives, risks/potential complications and benefits explained: yes Risk/complications/benefits details: Risks include but are not limited to: The treatment may not accomplish the desired results. Additionally bleeding, infection, damage to tendon, nerve, cartilage, muscle; thinning or lightening of the skin in the area of injection; flushing or redness of the face, elevated blood pressure or blood sugar, allergic reaction, rash, increased pain Benefits include relief of inflammation and pain Patient questions answered: yes Patient agrees, verbalizes understanding, and wants to proceed: yes Consent given by: Patient Informed consent discussion completed by Physician/DAWN with patient: Verbal Pre-procedure timeout performed: yes LABS/IMAGING: Xrays reviewed: X-rays reviewed today patient received from his recent visit. We demonstrated the appointment approximately IMPRESSION AND PLAN 1. Primary osteoarthritis of both knees 2. Nontraumatic rupture of right long head biceps tendon 3. Acute pain of right shoulder 1. Primary osteoarthritis of both knees (Primary) Right knee injection performed today will reevaluate in a month 2. Nontraumatic rupture of right long head biceps tendon 3. Acute pain of right shoulder Will evaluate at next visit No orders of the defined types were placed in this encounter. ROS: GENERAL: No malaise, significant weight loss or fever HEENT: No changes in hearing or vision, nose bleeds or other nasal problems NECK: No lumps, goiter, pain or significant neck swelling RESPIRATORY: No cough, wheezing or shortness of breath CARDIOVASCULAR: No chest pain, leg swelling or palpitations GI: No abdominal discomfort, blood in stools or black stools : No dysuria, frequency or incontinence MUSCULOSKELETAL: See HPI. SKIN: No lesions, rash or itching NEURO: No persistent headache, syncope, seizures, weakness or numbness Remainder of systems noncontributory. PAST MEDICAL HISTORY: Patient Active Problem List Diagnosis Date Noted Class 1 obesity 03/19/2024 Fever 03/19/2024 Hallux rigidus of right foot 03/19/2024 Hyperglycemia due to diabetes mellitus ([facility] V24, [facility] V28) 03/19/2024 Neck pain 03/19/2024 Rigors 03/19/2024 Sore throat 03/19/2024 Candidiasis of mouth 03/19/2024 Real time reverse transcriptase PCR positive for COVID-19 virus 08/28/2023 Gastroesophageal reflux disease without esophagitis 07/12/2023 Sensation of foreign body in throat 07/12/2023 Severe obesity (BMI 35.0-35.9 with comorbidity) ([facility] V24, [facility] V28) 04/21/2023 History of tobacco abuse 04/21/2023 Need for prophylactic vaccination against Streptococcus pneumoniae (pneumococcus) 04/21/2023 Grade II hemorrhoids 11/21/2022 Oral thrush 11/30/2021 Cervical spine disease 07/22/2021 Vitamin B 12 deficiency 01/13/2021 Type 2 diabetes mellitus with retinopathy ([facility] V24, [facility] V28) 07/01/2020 Chronic venous insufficiency 09/30/2018 Chronic sinusitis 08/23/2018 Osteoarthritis 08/23/2018 Cataract 08/23/2018 Migraine with aura 08/23/2018 Carpal tunnel syndrome 08/23/2018 Essential tremor 08/23/2018 Type 2 diabetes mellitus with neurological manifestations ([facility] V24, [facility] V28) 08/23/2018 Microalbuminuria 06/25/2018 PAD (peripheral artery disease) ([facility] V24) 03/12/2018 Lung nodule 12/16/2014 Venous insufficiency of both lower extremities 06/27/2013 Vertigo, benign positional 06/27/2013 Type 2 diabetes mellitus with renal manifestations ([facility] V24, [facility] V28) 08/15/2011 AAA (abdominal aortic aneurysm) without rupture ([facility] V24) 07/11/2008 Renal calculi 12/31/2007 Primary hypertension 05/01/2006 Gout 02/15/2005 Hypothyroidism 02/15/2005 Hyperlipemia 02/15/2005 Surgical History[1] SOCIAL HISTORY: Social History Tobacco Use Smoking status: Former Current packs/day: 0.00 Types: Cigarettes Quit date: 02/13/2002 Years since quittin.8 Smokeless tobacco: Never Substance Use Topics Alcohol use: No FAMILY HISTORY: Family History[2] MEDICATIONS DISCONTINUED/REORDERED: There are no discontinued medications. ACTIVE MEDICATIONS: Medications Taking[3] ALLERGIES: Allergies[4] The details of the visit were reviewed with the patient. Pertinent history, and objective findings were reviewed, along with the diagnoses: Sam Villareal acknowledges understanding of the above plan and agrees to follow recommendations and/or take medications as prescribed. Follow up in about 4 weeks (around 01/01/2025). KEVIN Cabrera [1] Past Surgical History: Procedure Laterality Date COLONOSCOPY 05/19/2004 PROCEDURE: HISTORICAL COLONOSCOPY; COMMENT: normal COLONOSCOPY 08/26/2014 PROCEDURE: HISTORICAL COLONOSCOPY; COMMENT: 5 mm rectal polyp: hyperplastic. ELBOW SURGERY Right PROCEDURE: HISTORICAL ELBOW SURGERY; COMMENT: tennis elbow FOOT SURGERY PROCEDURE: HISTORICAL FOOT SURGERY; COMMENT: l bunion HAND SURGERY PROCEDURE: HISTORICAL HAND SURGERY; COMMENT: CTS, trigger finger LITHOTRIPSY 08/22/2008 PROCEDURE: HISTORICAL LITHOTRIPSY MULTIPLE TOOTH EXTRACTIONS PROCEDURE: HISTORICAL DENTAL EXTRACTION OTHER SURGICAL HISTORY PROCEDURE: NH UNLISTED PROCEDURE FEMUR/KNEE; COMMENT: l knee OTHER SURGICAL HISTORY PROCEDURE: ---- OTHER ----; COMMENT: injury l thumb OTHER SURGICAL HISTORY 06/06/2008 PROCEDURE: NH FISSURECTOMY INCL SPHINCTEROTOMY WHEN PERFORMED [2] Family History Problem Relation Name Age of Onset Lymphoma Mother Stroke Father [3] Outpatient Medications Marked as Taking for the 12/04/24 encounter (Office Visit) with KEVIN Cabrera Medication Sig Dispense Refill acetaminophen (TYLENOL) 325 mg tablet Take 2 tablets (650 mg total) by mouth every 8 (eight) hours if needed for mild pain. acyclovir (ZOVIRAX) 5 % ointment APPLY TOPICALLY 6 TIMES A DAY DIRECTED. - GENERIC FOR ZOVIRAX 15g 1 aspirin 81 mg EC tablet Take 1 tablet (81 mg total) by mouth 1 (one) time each day. 90 tablet 1 blood sugar diagnostic (FreeStyle Lite Strips) test strip Use as instructed 200 each 3 blood-glucose meter kit 1 kit by Not Applicable route. Cinnamon 500 mg capsule Take 1 capsule (500 mg total) by mouth 1 (one) time each day. OTC cyanocobalamin (VIT B-12) 1,000 mcg tablet extended release ER tablet Take 1 tablet (1,000 mcg total) by mouth 1 (one) time each day. OTC diclofenac (VOLTAREN) 1 % topical gel Apply 2 gram four times daily to affected joint 100 g 0 FLAXSEED OIL ORAL Take by mouth. OTC freestyle (FreeStyle Lancets) 28 gauge lancets USE TO CHECK BLOOD SUGARS 3 TIMES DAILY 100 each 3 glucosamine/D3/boswellia amrik (GLUCOSAMINE DAILY COMPLEX ORAL) Take by mouth. lecithin, soy 1,200 mg capsule capsule Take by mouth. OTC Neurontin 100 mg capsule TAKE 1 CAPSULE AT BEDTIME 90 capsule 0 OMEGA-3 FATTY ACIDS-FISH OIL ORAL Take by mouth 1 (one) time each day. OTC probenecid (BENEMID) 500 mg tablet Take 1 tablet (500 mg total) by mouth 1 (one) time each day. 90 tablet 0 Synthroid 175 mcg tablet TAKE 1 TABLET 1 TIME EACH DAY BEFORE BREAKFAST. 90 tablet 0 tamsulosin (FLOMAX) 0.4 mg 24 hr capsule Take 1 capsule (0.4 mg total) by mouth 1 (one) time each day. Capsules should be taken 30 minutes following the same meal each day. 30 each 11 Tenormin 50 mg tablet TAKE 1 TABLET 1 TIME EACH DAY. 90 tablet 0 triamcinolone (KENALOG) 0.1 % dental paste APPLY TO MOUTH SORE 2 TIMES DAILY NEEDED (GENERIC FORKENALOG) Viagra 50 mg tablet TAKE 1 TABLET NEEDED FOR ERECTILE DYSFUNCTION 20 tablet 1 Vitamin C tablet Take 1 tablet (100 mg total) by mouth 1 (one) time each day. OTC vitamin E, dl,tocopheryl acet, (vitamin E, dl, acetate,) 45 mg (100 unit) capsule Take 1 capsule (100 Units total) by mouth 1 (one) time each day. OTC ZestriL 40 mg tablet TAKE 1 TABLET 1 TIME EACH DAY. 90 tablet 0 Zocor 40 mg tablet TAKE 1 TABLET AT BEDTIME 90 tablet 0 [DISCONTINUED] predniSONE (DELTASONE) 10 mg tablet Take 2 tabs PO daily for 3 days then 1 tab PO daily for 4 days 10 tablet 0 [4] No Known Allergies documented in this encounter Plan of Treatment Upcoming Encounters Date Type Department Care Team (Late st Contact Info) Description 12/25/2024 2:15 PM EST Office Visit Adult Medicine [facility] [address], [place] [phone] Swapnil Ghosh NP [address], [place] 01/01/2025 11:30 AM EST Office Visit Orthopedics - [place] [address], [place] [phone] Carlos Hutchinson PA [address] [place] [phone] documented as of this encounter Procedures Procedure Name Priority Date/Time Associated Diagnosis Comments NH ARTHROCENTESIS/ASP IRATION/INJECTION MAJOR JOINT/BURSA W/O U/S GUIDANCE Routine 12/04/2024 9:30 AM EDT Primary osteoarthritis of both knees documented in this encounter Results * NH ARTHROCENTESIS/ASPIRATION/INJECTION MAJOR JOINT/BURSA W/O U/S GUIDANCE (12/04/2024 9:30 AM EDT) Narrative Carlos Hutchinson PA - 12/04/2024 9:30 AM EDT KEVIN Cabrera 12/04/2024 9:50 AM L Inj/Asp: R knee Indications: pain Details: 22 G needle, anterolateral approach Medications: 4 mL lidocaine 1 %; 80 mg methylPREDNISolone acetate 80 mg/mL Informed Consent: Site: Knee Laterality: Right Relevant images/test results available and reviewed: yes Health status cleared: Yes Procedure/treatment, purpose, treatment alternatives, risks/potential complications and benefits explained: yes Risk/complications/benefits details: Risks include but are not limited to: The treatment may not accomplish the desired results. Additionally bleeding, infection, damage to tendon, nerve, cartilage, muscle; thinning or lightening of the skin in the area of injection; flushing or redness of the face, elevated blood pressure or blood sugar, allergic reaction, rash, increased pain Benefits include relief of inflammation and pain Patient questions answered: yes Patient agrees, verbalizes understanding, and wants to proceed: yes Consent given by: Patient Informed consent discussion completed by Physician/DAWN with patient: Verbal Pre-procedure timeout performed: yes Carlos BROWN IN CLINIC/BEDSIDE ORDERABLES Fin al Result documented in this encounter Visit Diagnoses Diagnosis Primary osteoarthritis of both knees- Primary Nontraumatic rupture of right long head biceps tendon Acute pain of right shoulder documented in this encounter Administered Medications Inactive Administered Medications - up to 3 most recent administrations Medication Order MAR Action Action Date Dose Rate Site lidocaine (XYLOCAINE) 1 % injection 4 mL 4 mL, Once PRN Procedure, Starting on Mon12/04/24 at 0930, For 1 doseIndications:Primary osteoarthritis of both knees Given 12/04/2024 9:30 AM EDT 4 mL methylPREDNISolone acetate (DEPO-Medrol) injection 80 mg 80 mg, Once PRN Procedure, Starting on Mon12/04/24 at 0930, For 1 doseIndications:Primary osteoarthritis of both knees Given 12/04/2024 9:30 AM EDT 80 mg documented in this encounter Additional Health Concerns Assessment Noted Time PHQ-9 Depression Total Score: 0 01/03/20 9:17 AM EST documented as of this encounter Care Teams Plumber Apprentice Relationship Specialty Start Date End Date Boris Owens MD [address] [place] [address] PCP - General Internal Medicine 01/01/21 documented as of this encounter
--- NOTE | 2024-12-04 15:15 | MHC.OFFVIS ---
Intake Visit Reasons: shaking, last seen [facility] 04/2023 Allergies No Known Allergies Allergy (Verified 12/04/24 15:27) Medication List - Last Reconciled 12/04/24 by Faiza Arita CNP acetaminophen 500 mg PO Q8H PRN aspirin 81 mg PO DAILY atenolol 50 mg PO DAILY blood sugar diagnostic (FreeStyle Lite Strips) As directed gabapentin 100 mg PO DAILY lancets (FreeStyle Lancets) As directed levothyroxine 175 mcg PO DAILY lisinopril 40 mg PO DAILY metronidazole 0.75% 1 appl topical BID naproxen 500 mg PO BID probenecid 500 mg PO BID sildenafil mg PO simvastatin 40 mg PO BEDTIME tamsulosin mg PO triamcinolone-emollient comb45 0.1 % appl topical HPI Comments Details: He returns after 19 months with concerns related to tremor and vertigo. He was having more tremor in both hands, R > L, after being without primidone for few months. He went to [place] to visit family, but his broke her pelvis and was on bed rest, which unexpectedly extended their trip and he was not able to get medications. He had trouble eating soup or threading a fishing hook. Tremors were worse with movement or stress. No mobility issues. He started with positional vertigo again a few weeks ago, characterized by feeling of room moving or spinning when laying down in bed and sometimes when turning head a certain way. It lasted for about 15 seconds each time. No falls. No migraines or auras. He says the last episode was over a year ago. He has 10+ year history of tremors in his hands. He has noted it mostly in the right hand was not aware of it in his left hand till it was pointed out to him. Tremor is worse when nervous, interfering with writing and using phone. He notes that his mother use to shake and was diagnosed with Parkinson's disease. He has no difficulty walking, turning in bed or getting up. No muscle stiffness and aching. He has a history of migraines with visual aura, going back to childhood. He would get a visual aura, followed by a severe, incapacitating headache with nausea, vomiting, photophobia, and scalp sensitivity. The visual aura is no longer associated with a severe headache. [facility] Medical History (Updated 12/04/24 @ 15:40 by Faiza Arita CNP) Bilateral carpal tunnel syndrome Type 2 diabetes mellitus PAD (peripheral artery disease) Venous insufficiency AAA (abdominal aortic aneurysm) Surgical History S/P anal fissurectomy Hx of colonoscopy Hyperplastic colon polyp H/O elbow surgery H/O foot surgery Hx of hand surgery H/O lithotripsy Hx of knee surgery History of femoral angiogram Family History (Updated 12/04/24 @ 16:02 by Faiza Arita CNP) Mother Tremor Review of Systems Const Denies chills, Denies daytime sleepiness, Denies difficulty sleeping, Denies fatigue, Denies fever(s), Denies frequent falls, Reports headache(s), Denies increased appetite, Denies poor appetite, Denies snoring, Denies weakness, Denies weight gain and Denies weight loss Eyes Denies loss of vision ENT Denies vertigo, Denies dizziness, Reports headache(s) and Denies neck pain Card Denies chest pain at rest, Denies chest pain with activity, Denies syncope, Denies leg edema, Denies palpitations, Denies dyspnea and Denies dyspnea on exertion Resp Denies cough, Denies dyspnea, Denies dyspnea on exertion and Denies snoring GI Denies abdominal pain, Denies constipation, Denies heartburn, Denies diarrhea and Denies nausea Denies urinary frequency, Denies urinary incontinence and Denies urinary urgency Musc Denies abnormal gait, Denies back pain, Denies myalgias, Reports arthralgias, Denies neck pain, Denies numbness and Denies tingling Neuro Denies abnormal gait, Denies vertigo, Denies dizziness, Denies syncope, Denies frequent falls, Reports headache(s), Denies lack of coordination, Denies loss of vision, Denies memory loss, Denies numbness, Denies Other visual disturbances, Denies restless legs, Denies seizure-like activity, Denies tingling, Denies paresthesias, Reports tremor(s) and Denies weakness Psych Reports anxiety, Denies depression, Denies auditory hallucinations, Denies memory loss and Denies visual hallucinations Endo Denies fatigue and Denies palpitations Physical Exam Const Other: General Appearance:? normal, in no acute distress. Heart:? S1, S2 normal, no murmurs. Lungs:? clear anteriorly and posteriorly. Musculoskeletal:? normal. Extremities:? no edema. Psych:? alert, oriented, cognitive function intact, cooperative with exam. Neuro Other: Abnormal Neurological Findings:?Minimal intermittent tremors of sustained posture in both hands, right greater than left. FTN with mild tremor. No rigidity or cogwheeling. Slight decrease in amplitude and finger tapping. No significant bradykinesia. Mental Status: alert and oriented X 3. Normal attention, orientation, memory, and affect. Cranial Nerves: Pupils are equal, round, and reactive to light. External ocular muscles are intact. Visual dietrich are full, no ptosis. Face is symmetrical, no facial weakness or droop. Facial sensations are normal. Tongue protrudes in midline. Palate elevates symmetrically. Shoulder shrugging is normal Motor Examination: Normal muscle tone, bulk and strength. No atrophy or fasciculations. No drift of the extended upper extremities. DTR 2+. Plantars are flexor. Sensory Exam: Normal light touch, temperature, pinprick, vibration, and joint-position sensations. Rhomberg sign is absent. Coordination: No ataxia. No titubation. Gait Exam: Within normal limits. Cerebellar Signs: [id number] with mild tremor. Extrapyramidal System: As above. Speech: Normal. Results Reviewed Results Reviewed: NCV/EMG UE 09/01/15 MILD BILATERAL CARPAL TUNNEL SYNDROME IN THE UPPER EXTREMITIES. Assessment & Plan Assessment & Plan (1) Benign essential tremor: Code(s): G25.0 - Essential tremor Category: Medical Plan: He was previously treated with primidone, but has been without medication for few months. During this time, tremors have increased. Start primidone 50mg 1 tablet at bedtime, use/side effects reviewed. (2) Vertigo: Code(s): R42 - Dizziness and giddiness Category: Medical Plan: Start meclizine 12.5mg 1 tablet twice a day as needed for dizziness, use/side effects reviewed. (3) Migraine with aura: Code(s): G43.109 - Migraine with aura, not intractable, without status migrainosus Category: Medical Qualifiers: Intractability: not intractable Status migrainosus presence: without status migrainosus Qualified Code(s): G43.109 - Migraine with aura, not intractable, without status migrainosus Plan: No significant migraines. Medications: New primidone 50 mg PO BEDTIME 90 tabs 0RF 90 days meclizine 12.5 mg PO BEDTIME PRN 30 tabs 2RF dizziness 30 days Coding Level of Care Code Est Pt Level 4 (19196) Diagnoses Benign essential tremor G25.0 Vertigo R42 Migraine with aura and without status migrainosus, not intractable G43.109 Intractability: not intractable Status migrainosus presence: without status migrainosus
--- OUTSIDE RECORDS SUMMARY | 2024-12-04 21:21 | XMS_ITS | Encounter Summary ---
Author Organization [facility] Address [address] [place] [address] Care Team Providers Care Bromination Equipment Operator Name Role Phone Unavailable Primary Care Provider Unavailabl e Reason for Visit * Reason Onset Date Comments appt 01/15/2024 Encounter Details Date Type Department Care Team (Late st Contact Info) Description 01/15/2024 Telephone [facility] [address] [place], [place] [phone] Johnnie Baez BDS [address] [place], [place] [phone] appt Social History Tobacco Use Types Packs/Day [...] is needed. Please reach out to patient DR documented in this encounter Plan of Treatment Upcoming Encounters Date Type Department Care Team (Late st Contact Info) Description 06/09/2025 2:15 PM EDT Office Visit [facility] [address] [place] [address] Amilcar Thomas documented as of this encounter Visit Diagnoses Not on filedocumented in this encounter
--- OUTSIDE RECORDS SUMMARY | 2024-12-04 21:21 | XMS_ITS | Encounter Summary ---
Author Organization [facility] Address [address] [place] [address] Phone Care Team Providers Care Home Care Administrator Name Role Phone Boris Owens MD Primary Care Provider [phone] Aleksander Lucia MD Unavailable [phone] Ramiro Alfaro MD Unavailable [phone] Encounter Details Date Type Department Care Team (Late st Contact Info) Description 03/01/2024 Procedure [facility] [address] [place] [address] Social History Tobacco Use Types Packs/Day Years Used Date Smoking Tobacco: Former Pipe Smokeless Tobacco: Never Alcohol Use Standard Drinks/Week Comments Not Currently 0 (1 standard drink = 0.6 oz pur e alcohol) Education Answer Date Recorded Are you interested in more education? Not on zander e 06/10/2022 Are you concerned about learning? Not on file 06/10/2022 No 06/10/2022 No 06/10/2022 Food Answer Date Recorded Within the past 6 months we worried whether our food would run out before we got money to buy more. Never True 03/01/2024 Within the past 6 months the food we bought just didn't last and we didn't have enough money to get more. Never True Residential Stability Answer Date Recor ded What is your housing situation today? I have shannon sing 03/01/2024 How many times have you move d in the past 12 months? Zero (I did not move) 03/01/2024 Paying for Meds Answer Date Recorded Do you have trouble paying for medicines? No 03/01/2024 Paying Utility Bills Answer Date Record ed Do you have trouble paying your heating or elect ricity bill? No 03/01/2024 Transportation Answer Date Recorded Has the lack of transportati on kept you from medical appointments or from getting medications? No 03/01/2024 Digital Access Answer Date Recorded No 03/01/2024 Yes 03/01/2024 Do you have reliable internet access at home? Ye s 03/01/2024 Do you have a device (e.g., phone, tablet, computer) with a working camera? Yes 03/01/2024 Intimate Partner Violence Answer Date R ecorded Are you denied basic needs s uch as food, clothing, or medical care? No 03/01/2024 In the past 12 months have y ou been in a relationship with a person who hurts, threatens, or tries to control you? No 03/01/2024 Are you denied basic needs s uch as food, clothing, or medical care? No 03/01/2024 In the past 12 months have y ou been in a relationship with a person who hurts, threatens, or tries to control you? No 03/01/2024 Sex and Gender Information Value Date Recorded Sex Assigned at Not on file Legal Sex Male 10:10 PM EDT Gender Identity Not on file Sexual Orientation Not on file documented as of this encounter Functional Status * Calculated C-SSRS Risk Score (Lifetime/Recent) Answer Date of Assessment Author No Risk Indicated 03/01/2024 9:14 AM Jennifer Pemberton RN * [place] Suicide Severity Rating Scale (Screener/Recent Self-Report) Question Answer Date of Assessment Author 1. Wish to be (Past 1 Month) No 025 9:14 AM Jennifer Pemberton RN 2. Non-Specific Active Suici joaquina Thoughts (Past 1 Month) No 03/01/2024 9:14 AM Chauncey Pemberton RN 6. Suicidal Behavior (Lifetime) No 9:14 AM Jennifer Pemberton RN documented as of this encounter Plan of Treatment Not on file documented as of this encounter Visit Diagnoses Not on filedocumented in this encounter Care Teams Home Care Administrator Relationship Specialty Start Date End Date Boris Owens MD [address] [place] [address] PCP - General Internal Medicine 11/26/21 Aleksander Lucia MD [address] [place] [address] Vascular Surgery 03/02/24 Ramiro Alfaro MD [address] [place] [address] [place] [address] Neurology 03/02/24 documented as of this encounter Additional Source Comments The information contained in this document represents components of the legal health record. It is not the complete legal health record.[facility]
--- OUTSIDE RECORDS SUMMARY | 2024-12-04 21:21 | XMS_ITS | Patient Health Record ---
[facility] Organization [facility] Address [address] [place] [address] Care Team Providers Care Adjustment Clerk Name Role Phone Graciela STATON, Boris Avila Primary Care Provider Unav ailable Black, Emilie Unavailable [phone] Reason For Referral No Information Medications Medication [...] on an empty stomach Orally Once a day; Duration: 30 day(s) Active baby asprin as directed [...] Problem Status W/U Status Risk Notes Problem Acquired hallux rigidus (8248551) Hallux rigidus of right foot (M20.21) Active confirmed Plan Of Treatment Pending Test Test Name Order Date X ray : Foot, left 3V 10/02/2012 X ray : Foot, right 3V 05/06/2011 X ray : Foot, right 3V 10/02/2012 [id number] NAIL, 1-5 10/02/201238918,[id number] TENDON SHEATH/LIGAMENT 0 08/30/201820211,[id number] TENDON SHEATH/LIGAMENT 0 11/01/2018 Insurance Providers Payer Name Payer Address Payer Phone Subscriber Number Group Number Insured Name Patient Relationship to Insured Coverage Start Date Coverage End Date [employer] [address] [place] [address] [id number] Sam Villareal Self - patient is the insured Medical (General) History Medical History History ICD Code back, hip, knee pain transfusions thyroid disorder mumps measles Gout chicken pox Cholesterol Arthritis type II diabetes abdominal aortic aneurysm Cataracts Surgical History Surgery Date(Month/Year) hand/wrist 2006 knee surgery 2004
--- OUTSIDE RECORDS SUMMARY | 2024-12-04 21:21 | XMS_ITS | Clinical Summary ---
Author Organization [employer] Address [address] [place] [address] Care Team Providers Care Analytical Chemist Name Role Phone Unavailable Primary Care Provider [...] by mouth. 1 Active Cholecalciferol (Vitamin D3) 215060 UNIT/GM powder Take 10 mcg by mouth. 2 Active alpha tocopherol (Vitamin E) 400 units capsule Take 400 Int'l Units by mouth. 2 Active Cobalamin Combinations (Vitamin G99-Yolkp Acid) 500-400 MCG tablet Take 1,000 mcg by mouth. 1 Active Glucosamine HCl (GLUCOSAMINE PO) Take by mouth. 1 Active fluconazole (Diflucan) 200 MG tablet Take 200 mg by mouth in the morning. 2 Active Bisacodyl EC 5 MG EC tablet TAKE 2 TABLETS BY MOUTH RIGHT BEFORE FIRST DOSE OF LIQUID PREP 2 Active atenolol (Tenormin) 50 MG tablet 10/26/202 2 Active lisinopril 40 MG tablet Take 40 mg by mouth in the morning. 2 Active Glucosamine-Vit D-Hyaluron Acd (Glucosamine Plus Vitamin D3) 5417-2873-1.65 MG-UNIT-MG tablet Take by mouth. 1 Active FREESTYLE LITE test strip 2 [...] (Kenalog) 0.1 % oral paste 2 Active amoxicillin (Amoxil) 500 MG capsule Take 1 capsule (500 mg) by mouth every 8 (eight) hours for 7 days. 21 capsule 5 11/27/19 25 acetaminophen (Tylenol) 500 MG tablet Take 1 tablet (500 mg) by mouth every 8 (eight) hours if needed for mild pain or moderate pain for up to 5 days. 15 tablet 5 10/12/20 25 chlorhexidine (Peridex) 0.12 % solution Use 15 mL in the mouth or throat if needed in the morning, at noon, and at bedtime (PROPHYLAXIS) for up to 5 days. 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 Venous insufficiency of both lower extremities 0 06/27/2013 Vertigo, benign positional 06/27/2013 AAA (abdominal aortic aneurysm) without rupture 07/11/2008 Overview (11/19/2024): 02/2018 4.4 cm Renal calculi 12/31/2007 Primary hypertension 05/01/2006 Gout 02/15/2005 Hyperlipemia 02/15/2005 Hypothyroidism 02/15/2005 Encounters Date Type Department Care Team Description 12/03/2024 2:00 PM EDT Office Visit [facility] [address] [place] [phone] Mahsa Mckenna 11/19/2024 11:30 AM EDT Office Visit [facility] [address] [place] [id number] Hieu Olivarez DMD from Last 3 Months Immunizations Immunization Administration Dates Next Due INFLUENZA INJECTABLE QUADRIV [...] Not Answered Alcohol Use Standard Drinks/Week Comments Yes 0 [...] Mass Index - - Plan of Treatment Upcoming Encounters Date Type Department Care Team (Cas st Contact Info) Description 06/09/2025 2:15 PM EDT Office Visit [facility] [address] [place] [address] Amilcar Thomas Health Maintenance Due Date Last Done Comments Dental X-Ray: Bitewings 1943 Depression Screening 1943 Lipid Panel 1943 SDOH Screening 1943 Diabetes: Foot Exam 07/29/1953 Eye Exam 07/29/1953 Alcohol/Substance Use Screening 1955 Zoster Vaccines (2 of 3) 02/24/2015 12/30/2014 RSV Patients and Patients Aged 60 years or older (1 - 1-dose 75+ series) 07/29/2018 COVID-19 Vaccine ( season) 2024 01/26/2024, 03/07/2023, 06/03/2021, Additional history exists Influenza Vaccine (#1) 2024 , 11/21/2022, 11/03/2021, Additional history exists Diabetes: Hemoglobin A1C 12/11/2024 06/11/2024, 02/13 Diabetes: Urine Protein Screening 12/31/2024 01/01/2024 Dental X-Ray: Full Mouth 01/18/2025 01/17/2022 Dental Oral Exam 06/04/2025 12/03/2024, 01/17/2022 Dental Prophylaxis 06/04/2025 12/03/2024 Tobacco Screening 12/03/2025 12/03/2024 DTaP/Tdap/Td Vaccines (2 - Td or Tdap) 11/13/2033 11/14/2023, 05/01/2006, 05/01/2006 Pneumococcal Vaccine: 50+ Years Completed 03/07/2023, 11/30/2021, 01/11/2010 HIB Vaccines Aged Out No longer eligi [...] age to complete this topic Meningococcal B Vaccine Aged Out No l onger eligible based on patient's age to complete [...] Procedure Name Priority Date/Time Associated Diagnosis Comments PERIODIC ORAL EVALUATION - ESTABLISHED PATIENT Routine 12/03/2024 2:00 PM EDT CASE PRESENTATION, DETAILED AND EXTENSIVE TREATMENT PLANNING Routine 12/03/2024 2:00 PM EDT INTRAORAL - PERIAPICAL EACH ADDITIONAL RADIOGRAPHIC IMAGE Routine 12/03/2024 2:00 PM EDT INTRAORAL - PERIAPICAL FIRST RADIOGRAPHIC IMAGE Routine 12/03/2024 2:00 PM EDT PROPHYLAXIS - ADULT Routine 12/03/2024 2 :00 PM EDT 28 ROOT CANAL Routine 12/03/2024 12:00 AM EDT 28 ABUTMENT SUPPORTED CAST METAL CROWN (PREDOMINANTLY BASE METAL) Routine 12/03/2024 12:00 AM EDT CASE PRESENTATION, DETAILED AND EXTENSIVE TREATMENT PLANNING Routine 11/19/2024 11:30 AM EDT PALLIATIVE (EMERGENCY) TREATMENT OF DENTAL PAIN - MINOR PROCEDURE Routine 11/19/2024 11:30 AM EDT 28 INTRAORAL - PERIAPICAL FIRST RADIOGRAPHIC IMAGE Routine 11/19/2024 11:30 AM EDT PANORAMIC RADIOGRAPHIC IMAGE Routine 01/17/2022 1:00 PM EST from Last 3 Months or Most Recently Relevant to Health Maintenance Insurance DENTAL - [facility] PARTIAL (MEDICAID)
--- OUTSIDE RECORDS SUMMARY | 2024-12-04 21:21 | XMS_ITS | Data Portability ---
Author Organization [place] [facility] Address [address] [address] Care Team Providers Care Eyelet Row Marker Name Role Phone RITU PATRICIO Primary Care [...] 21 mcg (0.03 %) nasal spray 2023 [facility] #[id number], [address] [place], [place], [phone], 10:05:20 omeprazole 20 mg capsule,del ayed release 2023 024 [facility] #[id number], [address] [place], [place], [phone], 13:41:16 Patient TargetsNo targets recorded. Patient InstructionsNo instructions recorded. Reason for Referral None Reported. Problems Name Problem SNOMED Code Status Onset Date Resolution Date Notes Provider Name and Address Organization Details Recorded Time Sensation of foreign body in throat 6156461847751 04 Active 2023 Chiara irvin [facility] 13:39:46 Gastroesoph ageal reflux disease without esophagitis 556022602 Active 2023 Chiara irvin [facility] 13:39:52 Problem Notes None recorded. Procedures Surgical History Date Name Laterality Status Provider Name and Address Organization Details Recorded Time 07/12/19 24 Fiberoptic Laryngoscopy (Comprehensive) completed Chiara Bernardo [facility] 07/12/2023 13:39:32 Imaging Results None recorded. Procedure [...] bromide 21 mcg (0.03 %) nasal spray [place] 2 sprays twice a day by intranasa [...] Updated DateTime 07/12/2023 170.18 cm 33.7 kg/m2 57544.36 g Caitlin Cerrato [facility] 07/12/2023 13:15:11 Date Recorded Body height Body mass index (BMI) Body weight Provider Name and Address Organization Details Last Updated DateTime 08/24/2023 170.18 cm 33.7 kg/m2 62469.36 g Mindi Chris [facility] 08/24/2023 09:44:46 Social History None recorded. Functional Status None recorded. Mental Status None recorded. Family History Nothing Reported. Medical History No medical history recorded. Past Encounters Encounter ID Performer Location Encounter Start Date Encounter Closed Date Diagnosis/Indication Diagnosis SNOMED-CT Code Diagnosis ICD10 Code Diagnosis IMO Codes Diagnosis Note [id number] CHIARA BERNARDO PA-C [facility] on [address] [place] [id number] 07/12/2023 12:19:32 07/18/2023 14:21:20 Sensation of foreign body in throat 2237957537 06246 R09.A2 Gastroesop hageal reflux disease without esophagitis 716947341 K21.9 [id number] CHIARA BERNARDO PA-C [facility] on [address] [place] [address] [id number] 2 08/24/2023 09:38:25 08/24/2023 13:14:53 Sensation of foreign body in throat 9118845870 40165 R09.A2 Health Concerns Section Related Observation LastModified by Organization Detai ls LastModified Time None Recorded Concern Status LastModified by Organization Details LastModified Time None Recorded Advance Directives Directive None Recorded Payers Insurance Date Sequence Insurance Name Policy Number Policy Cardozo Covered Member ID Cardozo Member ID Guarantor Name 10/07/2023 1 [facility] - MEDICARE ADVANTAGE PLAN (MEDICARE REPLACEMENT HMO) [id number] Sam Villareal [id number] Sam Villareal Notes Date Note Type Note Provider Name and Address Organization Details Recorded Time 07/12/2023 text/html ROS as noted in the HPI 77 year old male presents today for [...] drinks extremely rarely. He does drink coffee. Chiara irvin [place] - [facility] 07/12/2023 13:42:06 08/24/2023 text/html ROS as noted in the HPI 77 year old male seen for six months of a sensation of excess mucus in the the throat.Fiberoptic laryngoscopy was suggestive of acid reflux. He was placed on omeprazole. He has been taking the omeprazole daily with persistent symptoms. He continues to clear mucus, most often in the mornings. Chiara irvin [place] - [facility] 08/24/2023 10:05:16
--- OUTSIDE RECORDS SUMMARY | 2024-12-04 21:21 | XMS_ITS | Clinical Summary ---
Author Organization [facility] Address [address] [facility] [address] [place] [address] Phone Care Team Providers Care Snapper On Name Role Phone Boris Owens MD Primary Care Provider [phone] Aleksander Lucia MD Unavailable [phone] Ramiro Alfaro MD Unavailable [phone] Allergies No known active allergies Medications omega 2-sje-zru-fish oil 1,000 mg (120 mg-180 mg) Cap Take by mouth. 01/13/2021 Active vitamin G79-yafav acid 0.5-1 mg Tab Take 1,000 mcg by mouth. 01/19/2021 Active aspirin 81 mg Cap Take 81 mg by mouth daily. 01/19/2021 Active atenolol (TENORMIN) 50 mg tablet Take 50 mg by mouth daily. 08/31/2021 Active levothyroxine (SYNTHROID, LEVOTHROID) 175 MCG tablet Take 175 mcg by mouth every morning. 03/23/2021 Active lisinopril (PRINIVIL,ZESTR IL) 10 MG tablet Take 40 mg by mouth daily. 09/29/2021 Active probenecid (BENEMID) 500 mg tablet 08/31/2021 Active simvastatin (ZOCOR) 40 MG tablet Take 40 mg by mouth nightly at bedtime. 09/29/2021 Active flaxseed oiL 1,000 mg Cap Take 1,000 mg by mouth daily. Active glucosamine-D3- [place]wellia serr 1,500-400-100 mg-unit-mg Tab Take 1 tablet by mouth daily. Active cinnamon bark 500 mg capsule Take 500 mg by mouth daily. Active lecithin, soy 1,200 mg Take 1,200 mg by mouth daily. Active vitamin E 45 mg (100 unit) Cap capsule Take 100 Units by mouth daily. Active meclizine (ANTIVERT) 25 mg tablet Take 1 tablet (25 mg total) by mouth 3 (three) times a day as needed for dizziness. 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 Gomez, completed PT 07/22/2021 Carpal tunnel syndrome 08/23/2018 Cataract 08/23/2018 Vertigo, benign positional 06/27/2013 Assessment & Plan (03/02/2024 10:36 AM EST): Presented with vertigo while driving. Due to his degree of atherosclerosis the decision was made to evaluate for stroke. MRI was negative. Will discharge with meclizine and instructions regarding Corey maneuvers. AAA (abdominal aortic aneurysm) without rupture 07/11/2008 Overview (03/01/2024): 02/2018 4.4 cm Gout 02/15/2005 Resolved Problems Problem Noted Date Diagnosed Date Resolved Date BPPV (benign paroxysmal positional vertigo) 03/01/2024 03/02/2024 Assessment & Plan (03/01/2024 5:06 PM EST): Patient had sudden onset of feeling as though the world was spinning around him when driving on Monday. The first episode he felt like he might be having a migraine and pulled over, he briefly felt like he could not see. He was on the side of the road for about 30 minutes and state he felt well again and drove, it happened again about an hour later and he had to chain puller, states it was less intense and lasted for shorter period of time, by the time he got home he felt okay and then [place] [facility] [place] [facility] and then in the shower it occurred again. He states he had to hold onto a wall for a few minutes to stop falling He denies any headache, difficulty speaking or understanding speech, unilateral weakness or numbness. He states he has never felt similar symptoms in the past but has had migraines where his vision gets wavy and then he gets a headache. He does see a neurologist in [place], Dr. Alfaro for migraine and tremor. He had called his neurologist today who advised him to come through the ED Symptoms have completely subsided. Of note, patient denied history of vertigo but I do see a prior history of BPV, also see a history of DM2, patient is not on any insulin or oral agents for this CT CTA in the emergency room showed moderate calcified plaque plaque ICA and vertebral arteries old left lacunar infarct right and left moderate stenosis ICAs. No acute findings. [facility] [place] felt that this might be simply peripheral vertigo especially because symptoms were more prevalent when the patient is in motion, but given his diffuse arthrosclerosis, age risk factors, true TIA could not be completely excluded and recommended brain MRI, aspirin, lab stroke panel, urine tox, TTE and follow-up [facility] neuro consult, will also order neurochecks, campus monitor. PT OT. Will hold antihypertensives to allow for permissive hypertension. Monitor blood glucose, check hemoglobin A1c. Immunizations Immunization Administration Dates Next Due COVID-19 (Pre-12/05) Pfizer Vaccine, mRNA, PF 12/09/2020,04/15/2020,03/25/2020 INFLUENZA, SPLIT VIRUS, TRIV ALENT W/ PRESERVATIVE IM 01/15/2014,12/06/2012,11/22/2011,01/11 Influenza High-Dose Trivalen t Preservative Free IM 11/21/2022,11/03/2021,11/02/2020,11/14,01/21/2019 Influenza Quadrivalent MDCK w/Preservative IM 01/04/2017 Pneumococcal conjugate PCV20 03/07/2023 Pneumococcal polysaccharide PPSV23 11/30/2021, Td (adult),2 Lf Tetanus Toxo id, PF, Adsorbed 05/01/2006 Zoster live 12/30/2014 Social History Tobacco Use Types Packs/Day Years Used Date Smoking Tobacco: Former Pipe Smokeless Tobacco: Never Tobacco Cessation:Counseling Given: Not [...] on file Sexual Orientation Not on file Last Filed Vital Signs Vital Sign Reading Time Taken Comments Blood Pressure 132/62 03/02/2024 8:11 AM EST Pulse 20 03/02/2024 8:11 AM EST Temperature 36.1 C (97 F) 03/02/2024 8:11 AM EST Respiratory Rate 16 03/02/2024 8:11 AM EST Oxygen Saturation 97% 03/02/2024 8:11 AM EST Inhaled Oxygen Concentration - - Weight 98.8 kg (217 lb 13 oz) 03/02/2024 6:02 AM EST Height 170.2 cm (5' 7 ) 03/01/2024 5:32 PM EST Body Mass Index 34.11 03/01/2024 5:32 PM EST Plan of Treatment Health Maintenance Due Date Last Done Comments DEPRESSION SCREENING 1957 ZOSTER VACCINES (2 of 3) 02/24/2015 12/30/2014 Adult Td,Tdap Booster 05/01/2016 05/01/2006 RSV VACCINE (1 - 1-dose 75+ series) 07/29/2018 BLOOD PRESSURE 02/28/2024 08/28/2023 DIABETIC EYE EXAM 03/01/2024 HEMOGLOBIN A1C 08/30/2024 03/02/2024, 01/01/2024 INFLUENZA VACCINE (#1) 2024 , 11/03/2021, 11/02/2020, Additional history exists COVID-19 VACCINE ( season) 2024 03/07/2023, 06/03/2021, 12/09/2020, Additional history exists CREATININE LEVEL 03/02/2025 03/02/2024, 03/01/2024 POTASSIUM LEVEL 03/02/2025 03/02/2024, 03/01/2024 TSH LEVEL 03/02/2025 03/02/2024, 01/01/2024 PNEUMOCOCCAL VACCINES (50+ years) Completed 03/07/2023, 11/30/2021, 01/11/2010 HEPATITIS A VACCINES Aged Out No long er eligible based on patient's age to complete this topic HIB VACCINES Aged Out No longer eligi ble based on patient's age to complete this topic MENINGOCOCCAL VACCINES (ACWY) Aged Out No longer eligible based on patient's age to complete this topic MENINGOCOCCAL VACCINES (B) Aged Out N o longer eligible based on patient's age to complete this topic Medical Devices Not on file Procedures Procedure Name Priority Date/Time Associated Diagnosis Comments HEMOGLOBIN A1C Routine 03/02/2024 7:41 AM EST TSH Routine 03/02/2024 7:41 AM EST COMPREHENSIVE METABOLIC PANEL Routine 03/02/2024 7:41 AM EST from Last 3 Months or Most Recently Relevant to Health Maintenance Results * (ABNORMAL) Comprehensive metabolic panel (03/02/2024 7:41 AM EST) SODIUM 140 133 - 146 mmol/L [facility] POTASSIUM 4.7 3.3 - 5.1 mmol/L [facility] CHLORIDE 103 96 - 108 mmol/L [facility] CO2 28 21 - 35 mmol/L [facility] BUN 22(H) 6 - 19 mg/dL [facility] CREATININE 0.90 0.5 - 1.5 mg/dL [facility] GLUCOSE 129(H) 70 - 99 mg/dL [facility] ALBUMIN 3.7(L) 3.9 - 4.8 g/dL [facility] TOTAL PROTEIN 6.7 6.5 - 8.0 g/dL [facility] CALCIUM 9.1 8.4 - 10.3 mg/dL [facility] ALKALINE PHOSPHATASE 65 39 - 117 U/L [facility] TOTAL BILIRUBIN 0.6 0.0 - 1.2 mg/dL [facility] AST 19 0 - 37 U/L [facility] ALT 25 0 - 40 U/L [facility] GLOBULIN 3.0 1 - 4.8 g/dL [facility] EGFR 86 >59 mL/min/1.7 3m2 [facility] Comment:Estimated glomerular filtration rate calculated using the CKD-EPI refit equation. ANION GAP 14 10 - 20 mmol/L [facility] Blood 03/02/2024 7:41 AM EST 03/02/2024 7:52 AM EST us Naya Tate PAPER COLORER LAB BLOOD ORDERABLES Fi nal Result Performing Organization Address [facility]/ZIP Co de Phone Number [address] [address] * (ABNORMAL) TSH (03/02/2024 7:41 AM EST) TSH 5.49(H) 0.27 - 4.20 uIU/mL [facility] Blood 03/02/2024 7:41 AM EST 03/02/2024 7:52 AM EST us Naya Radha Tate PAPER COLORER LAB BLOOD ORDERABLES Fi nal Result Performing Organization Address [facility] Co de Phone Number [address] [address] * (ABNORMAL) Hemoglobin A1c (03/02/2024 7:41 AM EST) HEMOGLOBIN A1C 6.6(H) 4.3 - 5.8 % [facility] Blood 03/02/2024 7:41 AM EST 03/02/2024 7:52 AM EST us Naya Radha Tate PAPER COLORER LAB BLOOD ORDERABLES Fi nal Result Performing Organization Address [facility] Co de Phone Number [address] [address] from Last 3 Months or Most Recently Relevant to Health Maintenance Insurance [employer] [place] [employer] H[employer] REPLACEMENT HEALTH SAF[employer]Y NET PARTIAL MEDICARE HMO REPLACEMENT Member Subscriber Plan / Payer (Ef fective 2020-Present) Name:Sam Villareal Relation to Subscriber:Self Name:Sam Villareal Payer ID:Not on file Type:Medicare Address: [address] SAFETY NET PARTIAL [employer] [place] [employer] H[employer] REPLACEMENT [employer] [place] [employer] H[employer] REPLACEMENT Member Subscriber Plan / Payer (Ef fective 2020-Present) Name:Sam Villareal Relation to Subscriber:Self Name:Sam Villareal Payer ID:Not on file Type:Medicare Address: [address] PARTIAL MEDICARE HMO REPLACEMENT [address] [facility] [address] [place] [id number] [facility] MEDIC[facility] HMO REPLACEMENT Member Subscriber Plan / Payer (Ef fective 2020-Present) Name:Sam Villareal Relation to Subscriber:Self Name:Sam Villareal Payer ID:Not on file Type:Medicare Address: [address] PARTIAL [facility] MEDICARE HMO REPLACEMENT Member Subscriber Plan / Payer (Ef fective 2020-Present) Name:Sam Villareal Relation to Subscriber:Self Name:Sam Villareal Payer ID:Not on file Type:Medicare Address: [address] NET [employer] [place] [employer] HMO REPLACEMENT PARTIAL Advance Directives For more information, please contact: [phone] (9AM - 5PM Ro/[facility], Monday-Monday) * Full Code (Latest Code Status on File) Date Activated Date Inactivated Comments 03/01/2024 5:07 PM Question Answer Comments Code Status Confirmed With: Patient Care Teams Snapper On Relationship Specialty Start Date End Date Boris Owens MD [address] [place] [id number] PCP - General Internal Medicine 11/26/21 Aleksander Lucia MD [address] [place] [address] Vascular Surgery 03/02/24 Ramiro Alfaro MD [address] [place] [address] [place] [address] Neurology 03/02/24 Additional Source Comments The information contained in this document represents components of the legal health record. It is not the complete legal health record.[facility]
--- OUTSIDE RECORDS SUMMARY | 2024-12-04 21:21 | XMS_ITS | Encounter Summary ---
Author Organization [facility] Address [address] [place] [address] Phone Care Team Providers Care Administrative Medical Director Name Role Phone Boris Owens MD Primary Care Provider [phone] Aleksander Lucia MD Unavailable [phone] Ramiro Alfaro MD Unavailable [phone] Encounter Details Date Type Department Care Team (Late st Contact Info) Description 03/01/2024 Procedure Pass [facility], [facility] [address] [place] [address] Social History Tobacco Use Types Packs/Day Years [...] 03/01/2024 9:14 AM Jennifer Pemberton RN * [place] Suicide Severity Rating Scale (Screener/Recent Self-Report) Question Answer Date of Assessment Author 1. Wish to be (Past 1 Month) No 025 9:14 AM Jennifer Pemberton RN 2. Non-Specific Active Suici joaquina Thoughts (Past 1 Month) No 03/01/2024 9:14 AM Chauncey Pemberton RN 6. Suicidal Behavior (Lifetime) No 5 9:14 AM Jennifer Pemberton RN documented as of this encounter Plan of Treatment Not on file documented as of this encounter Visit Diagnoses Not on filedocumented in this encounter Care Teams Administrative Medical Director Relationship Specialty Start Date End Date Boris Owens MD [address] [place] [address] PCP - General Internal Medicine 11/26/21 Aleksander Lucia MD [address] [place] [address] Vascular Surgery 03/02/24 Ramiro Alfaro MD [address] [place] [address] [place] [address] Neurology 03/02/24 documented as of this encounter Additional Source Comments The information contained in this document represents components of the legal health record. It is not the complete legal health record.[facility]
--- OUTSIDE RECORDS SUMMARY | 2024-12-04 21:21 | XMS_ITS | Encounter Summary ---
Author Organization [facility] Address [address] [place] [address] Phone Care Team Providers Care Humidifier Maintenance Worker Name Role Phone Boris Owens MD Primary Care Provider [phone] Aleksander Lucia MD Unavailable [phone] Ramiro Alfaro MD Unavailable [phone] Encounter Details Date Type Department Care Team (Late st Contact Info) Description 03/01/2024 Procedure Pass [facility], [facility] - [facility] [address] [place] [address] Social History Tobacco Use Types Packs/Day Years [...] 03/01/2024 9:14 AM Jennifer Pemberton RN * [place] Suicide Severity Rating Scale (Screener/Recent Self-Report) Question [...] on filedocumented in this encounter Care Teams Humidifier Maintenance Worker Relationship Specialty Start Date End Date Boris Owens MD [address] [place] [address] PCP - General Internal Medicine 11/26/21 Aleksander Lucia MD [address] [place] [address] Vascular Surgery 03/02/24 Ramiro Alfaro MD [address] [place] [address] [place] [address] Neurology 03/02/24 documented as of this encounter Additional Source Comments The information contained in this document represents components of the legal health record. It is not the complete legal health record.[facility]
--- OUTSIDE RECORDS SUMMARY | 2024-12-04 21:22 | XMS_ITS | Clinical Summary ---
Author Organization [address] [place] [address] [place] [phone] Phone Care Team Providers Care Ediphone Operator Name Role Phone Boris Owens MD Primary Care Provider [phone] Allergies No known active allergies Medications triamcinolone (KENALOG) 0.1 % dental paste APPLY TO MOUTH SORE 2 TIMES DAILY NEEDED (GENERIC FOR KENALOG) 02/22/19 24 Active blood-glucose meter kit 1 kit by Not Applicable route. Active lecithin, soy 1,200 mg capsule capsule Take by mouth. OTC Active vitamin E, dl,tocopheryl acet, (vitamin E, dl, acetate,) 45 mg (100 unit) capsule Take 1 capsule (100 Units total) by mouth 1 (one) time each day. OTC Active FLAXSEED OIL ORAL Take by mouth. OTC Active Cinnamon 500 mg capsule Take 1 capsule (500 mg total) by mouth 1 (one) time each day. OTC Active Vitamin C tablet Take 1 tablet (100 mg total) by mouth 1 (one) time each day. OTC Active glucosamine/D 3/boswellia amrik (GLUCOSAMINE DAILY COMPLEX ORAL) Take by mouth. Activ e OMEGA-3 FATTY ACIDS-FISH OIL ORAL Take by mouth 1 (one) time each day. OTC Active cyanocobalami n (VIT B-12) 1,000 mcg tablet extended release ER tablet Take 1 tablet (1,000 mcg total) by mouth 1 (one) time each day. OTC Active blood sugar diagnostic (FreeStyle Lite Strips) test strip Use as instructed 200 each 3 03/20/19 25 Active aspirin 81 mg EC tablet Take 1 tablet (81 mg total) by mouth 1 (one) time each day. 90 tablet 1 05/30/19 25 Active freestyle (FreeStyle Lancets) 28 gauge lancets USE TO CHECK BLOOD SUGARS 3 TIMES DAILY 100 each 3 05/30/19 25 Active tamsulosin (FLOMAX) 0.4 mg 24 hr capsule Take 1 capsule (0.4 mg total) by mouth 1 (one) time each day. Capsules should be taken 30 minutes following the same meal each day. 30 each 11 06/18/19 25 026 Active acetaminophen (TYLENOL) 325 mg tablet Take 2 tablets (650 mg total) by mouth every 8 (eight) hours if needed for mild pain. 03/23/19 22 Active Viagra 50 mg tablet TAKE 1 TABLET NEEDED FOR ERECTILE DYSFUNCTION 20 tablet 1 10/25/19 25 Active acyclovir (ZOVIRAX) 5 % ointment APPLY TOPICALLY 6 TIMES A DAY DIRECTED. -GENERIC FOR ZOVIRAX 15 g 1 10/25/19 25 Active Tenormin 50 mg tablet TAKE 1 TABLET 1 TIME EACH DAY. 90 tablet 10/25/19 25 Active ZestriL 40 mg tablet TAKE 1 TABLET 1 TIME EACH DAY. 90 tablet 10/25/19 25 Active Synthroid 175 mcg tablet TAKE 1 TABLET 1 TIME EACH DAY BEFORE BREAKFAST. 90 tablet 11/12/19 25 Active Neurontin 100 mg capsule TAKE 1 CAPSULE AT BEDTIME 90 capsule 11/12/19 25 Active Zocor 40 mg tablet TAKE 1 TABLET AT BEDTIME 90 tablet 11/12/19 25 Active probenecid (BENEMID) 500 mg tablet Take 1 tablet (500 mg total) by mouth 1 (one) time each day. 90 tablet 11/19/19 25 Active diclofenac (VOLTAREN) 1 % topical gel Apply 2 gram four times daily to affected joint 100 g 11/19/19 25 Active probenecid (BENEMID) 500 mg tablet Take 1 tablet (500 mg total) by mouth 1 (one) time each day. 90 tablet 1 05/30/19 25 025 Discontinued(Re order) simvastatin (ZOCOR) 40 mg tablet Take 1 tablet (40 mg total) by mouth at bedtime. 90 each 06/18/19 25 025 Discontinued levothyroxine (SYNTHROID, LEVOTHROID) 175 mcg tablet Take 1 tablet (175 mcg total) by mouth 1 (one) time each day before breakfast. 90 tablet 06/18/19 25 025 Discontinued gabapentin (NEURONTIN) 100 mg capsule Take 1 capsule (100 mg total) by mouth at bedtime. 30 each 5 06/18/19 25 025 Discontinued diclofenac (VOLTAREN) 1 % topical gel Apply 2 gram four times daily to affected joint 100 g 06/18/19 25 025 Discontinued(Re order) predniSONE (DELTASONE) 10 mg tablet Take 2 tabs PO daily for 3 days then 1 tab PO daily for 4 days 10 tablet 07/02/19 025 Discontinued( erapy completed) Hospital, Clinic, or Other Facility Administered Medication Ordered Dose Route Frequency Start Date End Date Status lidocaine (XYLOCAINE) 1 % injection 4 mLIndications:Primary osteoarthritis of both knees 4 mL Once PRN Procedure 12/04/2024 12/04/2024 Ended methylPREDNISolone acetate (DEPO-Medrol) injection 80 mgIndications:Primary osteoarthritis of both knees 80 mg Once PRN Procedure 12/04/2024 12/04/2024 Ended Active Problems Problem Noted Date Diagnosed Date Class 1 obesity 03/19/2024 Fever 03/19/2024 Hallux rigidus of right foot 03/19/2024 Hyperglycemia due to diabete s mellitus ([facility] V24, [facility] V28) 03/19/2024 Neck pain 03/19/2024 Rigors 03/19/2024 Sore throat 03/19/2024 Candidiasis of mouth 03/19/2024 Real time reverse transcript ase PCR positive for COVID-19 virus 08/28/2023 Gastroesophageal reflux disease without esophagi tis 07/12/2023 Sensation of foreign body in throat 07/12/2023 Severe obesity (BMI 35.0-35. 9 with comorbidity) ([facility] V24, [facility] V28) 04/21/2023 History of tobacco abuse 04/21/2023 Need for prophylactic vaccin ation against Streptococcus pneumoniae (pneumococcus) 04/21/2023 Grade II hemorrhoids 11/21/2022 Oral thrush 11/30/2021 Cervical spine disease 07/22/2021 Overview (04/21/2023): s/p surgery by Dr. 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 ([facility] V24, [facility] V28) 07/01/2020 Chronic venous insufficiency 09/30/2018 Chronic sinusitis 08/23/2018 Osteoarthritis 08/23/2018 Overview (04/21/2023): Lumbar Spine, Hips, Hands Cataract 08/23/2018 Migraine with aura 08/23/2018 Carpal tunnel syndrome 08/23/2018 Essential tremor 08/23/2018 Type 2 diabetes mellitus wit h neurological manifestations ([facility] V24, [facility] V28) 08/23/2018 Microalbuminuria 06/25/2018 PAD (peripheral artery disease) ([facility] V24) Overview (04/21/2023): US: confirm 11/30/22 Right TEETEE 0.89 Left TEETEE 1.21 Lung nodule 12/16/2014 Overview (04/21/2023): Near anterior 7th rib on the right. Venous insufficiency of both lower extremities 0 06/27/2013 Vertigo, benign positional 06/27/2013 Type 2 diabetes mellitus wit h renal manifestations ([facility] V24, [facility] V28) 08/15/2011 Overview (04/21/2023): Diet controlled AAA (abdominal aortic aneury sm) without rupture ([facility] V24) 07/11/2008 Overview (04/21/2023): 02/2018 4.4 cm Renal calculi 12/31/2007 Primary hypertension 05/01/2006 Gout 02/15/2005 Hypothyroidism 02/15/2005 Hyperlipemia 02/15/2005 Encounters Date Type Department Care Team Description 12/04/2024 9:30 AM EDT Office Visit Orthopedics [address] [phone] Carlos Hutchinson PA Primary osteoarthritis of both knees (Primary Dx); Nontraumatic rupture of right long head biceps tendon; Acute pain of right shoulder 11/14/2024 Telephone Adult Medicine [address] [phone] Cedrick Rodriguez PA 10/30/2024 Telephone Adult Medicine [address] [phone] Boris Owens MD from Last 3 Months Immunizations Immunization Administration Dates Next Due Influenza Quadravalent, MDCK , 0.5ml, with preservative (Flucelvax) 6mo and older 01/04/2017 Influenza trivalent, 0.5mL ( Fluzone High-dose) 65yo and older 11/21/2022,11/03/2021,11/02/2020,11/14,01/21/2019 Influenza trivalent, with pr eservative (Fluzone; Afluria) 6mo and older 01/15/2014,12/06/2012,11/22/2011,01/11 [employer] SARS-CoV-2 COVID-19, mRNA, LNP-S, preservative free 12/09/2020,04/15/2020,03/25/2020 Pneumococcal polysaccharide 23 valent (Pneumovax 23) 2yo and older 11/30/2021,01/11/2010 Td Tetanus diptheria (Tdvax) 7yo and older 05/01/2006 Tdap Tetanus diptheria acell ular pertussis (Boostrix; Adacel) 7yo and older 05/01/2006 Zoster Live 12/30/2014 Surgical History Surgery Date Site/Laterality Comments OTHER SURGICAL HISTORY PROCEDURE: MI UNLISTED PROCEDURE FEMUR/KNEE; COMMENT: l knee OTHER [...] HISTORICAL LITHOTRIPSY OTHER SURGICAL HISTORY 06/06/2008 PROCEDURE: MI FISSURECTOMY INCL SPHINCTEROTOMY WHEN PERFORMED Medical History [...] DX:Hypothyroidis m PAD (peripheral artery disea se) ([facility] V24) 03/12/2018 DX:PAD (peripheral artery di sease) (HCC) AAA (abdominal aortic aneury sm) without rupture ([facility] V24) 07/11/2008 DX:AAA (abdominal aortic aneurysm) without rupture ([facility]); COMMENT: 02/2018 4.4 cm Chronic sinusitis 08/23/2018 DX:Chronic sin usitis Osteoarthritis 08/23/2018 DX:Osteoarthriti s; COMMENT: Lumbar Spine, Hips, Hands Cataract 08/23/2018 DX:Cataract Type 2 diabetes mellitus wit h cataract ([facility] V24, [facility] V28) 08/23/2018 DX:Type 2 diabetes mellitus with cataract (HCC) Migraine with aura 08/23/2018 DX:Migraine w ith aura Carpal tunnel syndrome 08/23/2018 DX:Carpal tunnel syndrome Essential tremor 08/23/2018 DX:Essential tr emor Type 2 diabetes mellitus wit h neurological manifestations ([facility] V24, [facility] V28) 08/23/2018 DX:Type 2 diabetes mellitus with neurological manifestations (HCC) Type 2 diabetes mellitus wit h renal manifestations ([facility]/H[facility] V24, [facility] V28) 08/15/2011 DX:Type 2 diabetes mellitus with renal [...] Record ed Within the last 3 months, liliam rocha many times did you visit the emergency [...] care for your loved ones. For example, children counselor or elderly care for an older [...] Sign Reading Time Taken Comments Blood Pressure 120/68 07/01/2024 1:12 PM EDT Pulse 66 07/01/2024 1:12 PM EDT Temperature 36.4 C (97.5 F) 07/01/2024 1:12 PM EDT Respiratory Rate 16 12/04/2024 9:18 AM EDT Oxygen Saturation 99% 07/01/2024 1:12 PM EDT Inhaled Oxygen Concentration - - Weight 97.5 kg (215 lb) 12/04/2024 9:18 AM EDT Height 170.2 cm (5' 7 ) 12/04/2024 9:18 AM EDT Body Mass Index 33.67 12/04/2024 9:18 AM EDT Plan of Treatment Upcoming Encounters Date Type Department Care Team (Late st Contact Info) Description 12/25/2024 2:15 PM EST Office Visit Adult Medicine [address] [phone] Swapnil Ghosh NP [address] [place], [place] 01/01/2025 11:30 AM EST Office Visit Orthopedics [address] [phone] Carlos Hutchinson PA [address] [place] [address] Health Maintenance Due Date Last Done Comments Zoster Vaccines (2 of 3) 02/24/2015 12/30/2014 RSV Immunization Adult Patients (1 - 1-dose 75+ series) 07/29/2018 Medicare Annual Wellness Visit 01/22/2022 Diabetes: Annual Retina Eye Exam 11/23/2022 11/23/2021 Diabetes: Annual Foot Exam 10/19/2023 10/18/2022 Depression Screening 02/14/2024 01/03/2024 COVID-19 Vaccine ( season) 2024 01/26/2024, 03/07/2023, 06/03/2021, Additional history exists Influenza Vaccine (#1) 2024 , 11/21/2022, 11/03/2021, Additional history exists Diabetes: Blood Sugar Control Test (HGBA1C) 12/11/2024 06/11/2024, 01/01/2024, 08/14/2023, Additional history exists Diabetes: Annual Urine Albumin-Creatinine Ratio (uACR) 12/31/2024 01/01/2024, 11/22/2022 Social Influencers of Health Screening 01/02/2025 01/03/2024 [...] Procedure Name Priority Date/Time Associated Diagnosis Comments MI ARTHROCENTESIS/ASPIR ATION/INJECTION MAJOR JOINT/BURSA W/O U/S GUIDANCE Routine 12/04/2024 9:30 AM EDT Primary osteoarthritis of both knees HEMOGLOBIN A1C Routine 06/11/2024 9:05 AM EDT Type 2 diabetes mellitus with neurological manifestations ([facility] V24, [facility] V28) MICROALBUMIN CREATININE URINE RATIO Routine 01/01/2024 8:10 AM EST Type II or unspecified type diabetes mellitus with neurological manifestations, not stated as uncontrolled(250.60) ([facility] V24, [facility] V28) from Last 3 Months or Most Recently Relevant to Health Maintenance Results * MI ARTHROCENTESIS/ASPIRATION/INJECTION MAJOR JOINT/BURSA W/O U/S GUIDANCE (12/04/2024 [...] with patient: Verbal Pre-procedure timeout performed: yes us Carlos BROWN IN CLINIC/BEDSIDE ORDERABLES Fin al Result * Hemoglobin A1c (06/11/2024 9:05 AM EDT) Hemoglobin A1C 6.4 <6.5 % LAB CHEMISTRY METHOD 06/11/2024 12:47 PM EDT [facility] Mean Bld Glu Estim. 137 mg/dL LAB CHEMISTRY METHOD 06/11/2024 12:47 PM EDT [facility] Blood Venous blood specimen / Unknown Venipuncture / Unknown 06/11/2024 9:05 AM EDT 06/11/2024 9:05 AM EDT us Boris Owens MD LAB BLOOD ORDERABLES Final Resul t [facility] [address] [place] [address], * Microalbumin creatinine urine ratio (01/01/2024 8:10 AM EST) Creatinine, Urine 94.0 mg/dL LAB CHEMISTRY METHOD 01/01/2024 10:46 AM EST [facility] Microalb, Ur 14.5 0.0 - 29.0 mg/L LAB CHEMISTRY METHOD 01/01/2024 10:46 AM EST [facility] Microalb/Creat Ratio 15 <30 mg/g creat LAB CHEMISTRY METHOD 01/01/2024 10:46 AM EST [facility] Urine Urine specimen obtained by clean catch procedure / Unknown Non-blood Collection / Unknown 01/01/2024 8:10 AM EST 01/01/2024 8:10 AM EST us Boris Owens MD LAB URINE ORDERABLES Final Resul t [facility] [address] [place] [address], from Last 3 Months or Most Recently Relevant to Health Maintenance Insurance [employer] Care Teams Ediphone Operator Relationship Specialty Start Date End Date Boris Owens MD [address] [place] [id number] PCP - General Internal Medicine 01/01/21
== END 2024-12-04 15:47 | disposition home or self-care (01) ==
LOC: HO.HSM 15:03
PROVIDERS: PCP Internal Medicine; Visit Provider Registered Nurse
DX: G25.0 Essential tremor (principal); R42 Dizziness and giddiness; G43.109 Migraine with aura, not intractable, without status migrainosus
CPT/HCPCS: 99214

== ENCOUNTER → 2024-12-04 15:02 | Outpatient (BNVA) | payer MEDICARE, SELFPAY | PROVIDERS: PCP Internal Medicine; Visit Provider Registered Nurse | DX: G25.0 Essential tremor (principal); R42 Dizziness and giddiness; G43.109 Migraine with aura, not intractable, without status migrainosus | CPT/HCPCS: 99212 ==

== ENCOUNTER 2024-12-20 08:13 | Outpatient (REF) | payer MEDICARE, SELFPAY ==
--- NOTE | ~2024-12-20 | US_ITS ---
EXAMINATION: Noninvasive assessment of the bilateral lower extremities with ARTERIAL DUPLEX, ANKLE BRACHIAL INDICES (ABIs), and PULSE VOLUME RECORDINGS (PVRs). CLINICAL INFORMATION: I 73.9 TECHNIQUE: Duplex Doppler techniques with waveform analysis and measurement of velocities in the bilateral common femoral, profunda femoris, superficial femoral, popliteal and tibial arteries were performed. Additionally, ankle pulse volume recordings, ankle pressure measurements and ankle brachial indices were obtained of the lower extremity arterial system bilaterally. The study was performed only at rest. COMPARISON: December 25, 2023.. June 06, 2023 FINDINGS: DIRECT DUPLEX DOPPLER FINDINGS: RIGHT LEG: Common femoral artery: 63 cm/s, phasicity: Biphasic. Profunda femoris artery: 57 cm/s, phasicity: Biphasic. Superficial femoral artery (proximal): 87 cm/s, phasicity: Biphasic. Superficial femoral artery (mid): 87 cm/s, phasicity: Triphasic. Superficial femoral artery (distal): 71 cm/s, phasicity: Triphasic. Popliteal artery: 80 cm/s, phasicity: Biphasic. Posterior tibial artery: 76 cm/s, phasicity: Monophasic. Spectral broadening. Peroneal artery: 54 cm/s, phasicity: Monophasic. Spectral broadening. Anterior tibial artery: 84 cm/s, phasicity: Monophasic. Spectral broadening. Dorsalis pedis artery: 52 cm/s, phasicity:Monophasic. LEFT LEG: Common femoral artery: 90 cm/s, phasicity: Biphasic. Profunda femoris artery: 58 cm/s, phasicity: Biphasic. Superficial femoral artery (proximal): 89 cm/s, phasicity: Biphasic. Superficial femoral artery (mid): 116 cm/s, phasicity: Biphasic. Superficial femoral artery (distal): 74 cm/s, phasicity: Biphasic. Popliteal artery: 79 cm/s, phasicity: Biphasic. Posterior tibial artery: 48 cm/s, phasicity: Monophasic. Spectral broadening. Peroneal artery: 69 cm/s, phasicity: Monophasic. Spectral broadening. Anterior tibial artery: 99 cm/s, phasicity: Biphasic. Reversal flow. Dorsalis pedis artery: 18 cm/s, phasicity: Biphasic. BRACHIAL PRESSURES: Right: 134 Left: 131 ANKLE PRESSURES: Right: PT 110, DP 130 Left: PT 147, DP 157 ANKLE-BRACHIAL INDEX: Right: 0.97. Left: 0.17. ANKLE PVR WAVEFORMS: Right: Normal Left: Normal US/US arterial duplex BI w/ TEETEE IMPRESSION: Right leg: Moderate to severe inflow disease involving mostly the peroneal artery. Left leg: Moderate to severe inflow disease involving mostly posterior tibialis and peroneal arteries. TEETEE Reference: - >1.4 = calcified vessels - 0.9 - 1.4 = normal - no significant arterial disease - 0.7 - 0.89 = mild peripheral arterial disease - 0.51 - 0.69 = moderate peripheral arterial disease - 0.50 = severe peripheral arterial disease - < .30 = critical arterial disease EXAMINATION: US RETROPERITONEAL LIMITED (AORTA) CLINICAL INFORMATION: I 71.43. COMPARISON: November 30, 2022. TECHNIQUE: Hook-scale, color Doppler and spectral Doppler evaluation of the abdominal aorta. FINDINGS: The abdominal aorta is patent with contour irregularity. The measurements of the aorta in maximum AP and transverse dimensions and peak systolic velocities respectively are as follows: Proximal: 3.0 x 3.4 cm. Peak systolic velocity: 65 cm/s. Mid: 2.1 x 2.2 cm. Peak systolic velocity: 75 cm/s. Distal: 5.0 x 4.3 cm. Peak systolic velocity: 83 cm/s. The measurements of the common iliac arteries in maximum dimensions and peak systolic velocities are as follows: Right: AP: 2.0 cm. TRV: 2.0 cm.Peak systolic velocity: 40 cm/s. Left: AP: 2.1 cm. TRV: 2.2 cm.Peak systolic velocity: 77 cm/s. IMPRESSION: 5.0 x 4.3 cm aneurysm, distal segment abdominal aorta. Slightly larger since prior exam.. Electronically signed by: Josias Purdy MD 12/20/2024 11:17 AM EST
--- OUTSIDE RECORDS SUMMARY | 2024-12-20 08:21 | XMS_ITS | Clinical Summary ---
Author Organization [employer] Address [address] [place] [address] Care Team Providers Care Scale Clerk Name Role Phone Unavailable Primary Care Provider [...] by mouth. 1 Active Cholecalciferol (Vitamin D3) 435293 UNIT/GM powder Take 10 mcg by mouth. 2 Active alpha tocopherol (Vitamin E) 400 units capsule Take 400 Int'l Units by mouth. 2 Active Cobalamin Combinations (Vitamin B95-Pzabk Acid) 500-400 MCG tablet Take 1,000 mcg [...] Glucosamine-Vit D-Hyaluron Acd (Glucosamine Plus Vitamin D3) 2068-5187-1.65 MG-UNIT-MG tablet Take by mouth. 1 Active [...] 04/21/2023 Severe obesity (BMI 35.0-35.9 with comorbidity) ([facility]) 04/21/2023 Grade II hemorrhoids 11/21/2022 Candidiasis of [...] Description 12/03/2024 2:00 PM EDT Office Visit [facility] [address] [place] [phone] Mahsa Mckenna 11/19/2024 11:30 AM EDT Office Visit [facility] [address] [place] [address] Hieu Olivarez DMD from Last 3 Months [...] Description 06/09/2025 2:15 PM EDT Office Visit [facility] [address] [place] [address] Amilcar Thomas Health Maintenance Due Date Last [...]
--- OUTSIDE RECORDS SUMMARY | 2024-12-20 08:21 | XMS_ITS | Patient Health Record ---
Author Organization [facility] Address [address] [place] [address] Care Team Providers Care Motion Picture Projectionist Apprentice Name Role Phone Graciela STATON, Boris Avila Primary Care Provider Unav ailable Black, Emilie Unavailable [phone] Reason For Referral No Information Medications Medication [...] Status Risk Notes Problem Acquired hallux rigidus (2976467) Hallux rigidus of right foot (M20.21) Active confirmed Plan Of Treatment Pending Test Test Name Order Date X ray : Foot, left 3V 10/02/2012 X ray : Foot, right 3V 05/06/2011 X ray : Foot, right 3V 10/02/2012 [id number] NAIL, 1-5 10/02/[id number] TENDON SHEATH/LIGAMENT 0 08/30/[id number] TENDON SHEATH/LIGAMENT 0 11/01/2018 Insurance Providers Payer Name Payer Address Payer Phone Subscriber Number Group Number Insured Name Patient Relationship to Insured Coverage Start Date Coverage End Date [employer] [place] [employer] [address] [place] [address] [phone] [id number] Sam Villareal Self - patient is the insured Medical (General) History Medical History History ICD Code back, hip, knee pain transfusions thyroid disorder mumps measles Gout chicken pox Cholesterol Arthritis type II diabetes abdominal aortic aneurysm Cataracts Surgical History Surgery Date(Month/Year) hand/wrist 2006 knee surgery 2004
--- OUTSIDE RECORDS SUMMARY | 2024-12-20 08:21 | XMS_ITS | Encounter Summary ---
Author Organization [facility] Address [address] [place] [address] Care Team Providers Care Train Caller Name Role Phone Unavailable Primary Care Provider Unavailabl e Reason for Visit * Reason Onset Date Comments appt 01/15/2024 Encounter Details Date Type Department Care Team (Late st Contact Info) Description 01/15/2024 Telephone [facility] [address] [place], [place] [phone] Johnnie Baez BDS [address] [place], [place] [phone] appt Social History Tobacco Use Types Packs/Day [...] Description 06/09/2025 2:15 PM EDT Office Visit [facility] [address] [place] [address] Amilcar Thomas documented as of this encounter Visit Diagnoses Not on filedocumented in this encounter
--- OUTSIDE RECORDS SUMMARY | 2024-12-20 08:21 | XMS_ITS | Encounter Summary ---
Author Organization [facility] Address [address] [place] [address] Phone Care Team Providers Care Third Grade Teacher Name Role Phone Boris Owens MD Primary Care Provider [phone] Aleksander Lucia MD Unavailable [phone] Arun Alfaro MD Unavailable + Encounter Details Date Type Department Care Team (Late st Contact Info) Description 03/01/2024 Procedure Pass [facility], Ct Scan - [facility] [address] [place] [address] Social History Tobacco Use Types Packs/Day Years [...] 03/01/2024 9:14 AM Jennifer Pemberton RN * [place] Suicide Severity Rating Scale (Screener/Recent Self-Report) Question [...] on filedocumented in this encounter Care Teams Third Grade Teacher Relationship Specialty Start Date End Date Boris Owens MD [address] [place] [address] PCP - General Internal Medicine 11/26/21 Aleksander Lucia MD [address] [place] [address] Vascular Surgery 03/02/24 Arun Alfaro MD [address] [place] [address] [place] [address] Neurology 03/02/24 documented as of this encounter Additional Source Comments The information contained in this document represents components of the legal health record. It is not the complete legal health record.[facility]
--- OUTSIDE RECORDS SUMMARY | 2024-12-20 08:21 | XMS_ITS | Encounter Summary ---
Author Organization [facility] Address [address] [place] [phone] Phone Care Team Providers Care Invoice Control Clerk Name Role Phone Boris Owens MD Primary Care Provider [phone] Aleksander Lucia MD Unavailable [phone] Arun Alfaro MD Unavailable + Encounter Details Date Type Department Care Team (Late st Contact Info) Description 03/01/2024 Procedure Pass [facility], [facility] [address] [place] [address] Social History Tobacco Use Types Packs/Day Years [...] 03/01/2024 9:14 AM Jennifer Pemberton RN * [place] Suicide Severity Rating Scale (Screener/Recent Self-Report) Question [...] on filedocumented in this encounter Care Teams Invoice Control Clerk Relationship Specialty Start Date End Date Boris Owens MD [address] [place] [address] PCP - General Internal Medicine 11/26/21 Aleksander Lucia MD [address] [place] [address] Vascular Surgery 03/02/24 Arun Alfaro MD [address] [place] [address] [place] [address] Neurology 03/02/24 documented as of this encounter Additional Source Comments The information contained in this document represents components of the legal health record. It is not the complete legal health record.[facility]
--- OUTSIDE RECORDS SUMMARY | 2024-12-20 08:22 | XMS_ITS | Data Portability ---
Author Organization [place] [facility] Address [address] [address] Care Team Providers Care Manager Pharmacy Name Role Phone RITU PATRICIO Primary Care [...] 21 mcg (0.03 %) nasal spray 2023 [facility] #[id number], [address], [place], [id number], 10:05:20 omeprazole 20 mg capsule,del ayed release 2023 024 [facility] #[id number], [address], [place], [id number], 13:41:16 Patient TargetsNo targets recorded. Patient InstructionsNo instructions recorded. Reason for Referral None Reported. Problems Name Problem SNOMED Code Status Onset Date Resolution Date Notes Provider Name and Address Organization Details Recorded Time Sensation of foreign body in throat 7576951589972 04 Active 2023 Chiara irvin [facility] 13:39:46 Gastroesoph ageal reflux disease without esophagitis 297622796 Active 2023 Chiara irvin [facility] 13:39:52 Problem Notes None recorded. Procedures Surgical History Date Name Laterality Status Provider Name and Address Organization Details Recorded Time 07/12/19 24 Fiberoptic Laryngoscopy (Comprehensive) completed Chiara Bernardo [facility] 07/12/2023 13:39:32 Imaging Results None recorded. Procedure [...] bromide 21 mcg (0.03 %) nasal spray [place] 2 sprays twice a day by intranasa [...] Updated DateTime 07/12/2023 170.18 cm 33.7 kg/m2 45055.36 g Caitlin Cerrato [facility] 07/12/2023 13:15:11 Date Recorded Body height Body mass index (BMI) Body weight Provider Name and Address Organization Details Last Updated DateTime 08/24/2023 170.18 cm 33.7 kg/m2 95804.36 g Mindi Chris [facility] 08/24/2023 09:44:46 Social History None recorded. Functional Status None recorded. Mental Status None recorded. Family History Nothing Reported. Medical History No medical history recorded. Past Encounters Encounter ID Performer Location Encounter Start Date Encounter Closed Date Diagnosis/Indication Diagnosis SNOMED-CT Code Diagnosis ICD10 Code Diagnosis IMO Codes Diagnosis Note [id number] CHIARA BERNARDO PA-C [facility] [address] [place] [phone] 07/12/2023 12:19:32 07/18/2023 14:21:20 Sensation of foreign body in throat [id number] 65909 R09.A2 Gastroesop hageal reflux disease without esophagitis 475689684 K21.9 [id number] CHIARA BERNARDO PA-C [facility] [address] [place] [phone] 08/24/2023 09:38:25 08/24/2023 13:14:53 Sensation of foreign body in throat 9396042285 41606 R09.A2 Health Concerns Section Related Observation LastModified by Organization Detai ls LastModified Time None Recorded Concern Status LastModified by Organization Details LastModified Time None Recorded Advance Directives Directive None Recorded Payers Insurance Date Sequence Insurance Name Policy Number Policy Cardozo Covered Member ID Cardozo Member ID Guarantor Name 10/07/2023 1 [facility] - MEDICARE ADVANTAGE PLAN (MEDICARE REPLACEMENT HMO) [id number] Sam Villareal [id number] Sam Villareal Notes Date Note Type Note [...] irvin [place] [facility] 07/12/2023 13:42:06 08/24/2023 text/html ROS as noted [...] irvin [place] [facility] 08/24/2023 10:05:16
--- OUTSIDE RECORDS SUMMARY | 2024-12-20 08:22 | XMS_ITS | Clinical Summary ---
Author Organization [facility] Address [address] [facility] [address] [place] [id number] Phone Care Team Providers Care Care Transition Mgr Name Role Phone Boris Owens MD Primary Care Provider [phone] Aleksander Lucia MD Unavailable Arun Alfaro MD Unavailable + Allergies No known active allergies Medications omega 7-ipg-[id number]-fish oil 1,000 mg (120 mg-180 mg) Cap Take by mouth. 01/13/2021 Active vitamin M33-[id number] acid 0.5-1 mg Tab Take 1,000 mcg [...] an hour later and he had to extractor puller, states it was less intense and [...] headache. He does see a neurologist in [place], Dr. Alfaro for migraine and tremor. He [...] left moderate stenosis ICAs. No acute findings. [facility] neurologist felt that this might be simply peripheral vertigo especially because symptoms were more prevalent when the patient is in motion, but given his diffuse arthrosclerosis, age risk factors, true TIA could not be completely excluded and recommended brain MRI, aspirin, lab stroke panel, urine tox, TTE and follow-up MGB neuro consult, will also order neurochecks, ekg monitor. PT OT. Will hold antihypertensives to [...] HEMOGLOBIN A1C Routine 03/02/2024 7:41 AM EST THYROID STIMULATING HORMONE (TSH) Routine 03/02/2024 7:41 AM EST COMPREHENSIVE METABOLIC PANEL (CMP) Routine 03/02/2024 7:41 AM EST from Last 3 Months or Most Recently Relevant to Health Maintenance Results * (ABNORMAL) Comprehensive metabolic panel (03/02/2024 7:41 AM EST) SODIUM 140 133 - 146 mmol/L [facility] POTASSIUM 4.7 3.3 - 5.1 mmol/L [facility] CHLORIDE 103 96 - 108 mmol/L [facility] CO2 28 21 - 35 mmol/L [facility] BUN 22(H) 6 - 19 mg/dL [facility] CREATININE 0.90 0.5 - 1.5 mg/dL [facility] GLUCOSE 129(H) 70 - 99 mg/dL [facility] ALBUMIN 3.7(L) 3.9 - 4.8 g/dL [facility] TOTAL PROTEIN 6.7 6.5 - 8.0 g/dL [facility] CALCIUM 9.1 8.4 - 10.3 mg/dL [facility] ALKALINE PHOSPHATASE 65 39 - 117 U/L [facility] TOTAL BILIRUBIN 0.6 0.0 - 1.2 mg/dL [facility] AST 19 0 - 37 U/L [facility] ALT 25 0 - 40 U/L [facility] GLOBULIN 3.0 1 - 4.8 g/dL [facility] EGFR 86 >59 mL/min/1.7 3m2 [facility] Comment:Estimated glomerular filtration rate calculated using the CKD-EPI refit equation. ANION GAP 14 10 - 20 mmol/L [facility] Blood 03/02/2024 7:41 AM EST 03/02/2024 7:52 AM EST us Naya Sterlingance ELECTRONICS ENGINEER LAB BLOOD BKR ORDERABLE S Final Result Performing Organization Address [facility]/ZIP Co de Phone Number [address] [address] * (ABNORMAL) TSH (03/02/2024 7:41 AM EST) TSH 5.49(H) 0.27 - 4.20 uIU/mL [facility] Blood 03/02/2024 7:41 AM EST 03/02/2024 7:52 AM EST us Naya Sterlingance ELECTRONICS ENGINEER LAB BLOOD BKR ORDERABLE S Final Result Performing Organization Address [facility] Co de Phone Number [address] [address] * (ABNORMAL) Hemoglobin A1c (03/02/2024 7:41 AM EST) HEMOGLOBIN A1C 6.6(H) 4.3 - 5.8 % [facility] Blood 03/02/2024 7:41 AM EST 03/02/2024 7:52 AM EST us Naya Harrisperance ELECTRONICS ENGINEER LAB BLOOD BKR ORDERABLE S Final Result Performing Organization Address [facility] Co de Phone Number [address] [address] from Last 3 Months or Most Recently Relevant to Health Maintenance Insurance [employer] H[employer] REPLACEMENT Member Subscriber Plan / Payer (Ef fective 2020-Present) Name:Sam Villareal Relation to Subscriber:Self Name:Sam Villareal Payer ID:Not on file Type:Medicare Address: [address] [employer]AF[employer] PARTIAL Member Subscriber Plan / Payer (Ef fective 2020-Present) Name:Sam Villareal Relation to Subscriber:Self Name:Sam Villareal Payer ID:Not on file Type:Medicare Address: [address] SAFETY NET PARTIAL [facility] MEDICARE HMO REPLACEMENT [employer] [place] [employer] REPLACEMENT MEDICARE HMO REPLACEMENT Member Subscriber Plan / Payer (Ef fective 2020-Present) Name:Sam Villareal Relation to Subscriber:Self Name:Sam Villareal Payer ID:Not on file Type:Medicare Address: [address] PARTIAL Member Subscriber Plan / Payer (Ef fective 2020-Present) Name:Sam Villareal Relation to Subscriber:Self Name:VillarealSam mayer Payer ID:Not on file Type:Medicare Address: [address] SAFETY NET PARTIAL [facility] MEDICARE HMO REPLACEMENT Member Subscriber Plan / Payer (Ef fective 2020-Present) Name:Sam Villareal Relation to Subscriber:Self Name:Sam Villareal Payer ID:Not on file Type:Medicare Address: [address] [employer]AFET[employer] PARTIAL [employer] [place] [employer] H[employer] REPLACEMENT [facility] PARTIAL Advance Directives For more information, please contact: [phone] (9AM - 5PM [facility], Monday-Monday) * Full Code (Latest Code Status on File) Date Activated Date Inactivated Comments 03/01/2024 5:07 PM Question Answer Comments Code Status Confirmed With: Patient Care Teams Care Transition Mgr Relationship Specialty Start Date End Date Boris Owens MD [address] [place] [phone] PCP - General Internal Medicine 11/26/21 Aleksander Lucia MD [address] [place] [phone] Vascular Surgery 03/02/24 Arun Alfaro MD [address] [place] [address] [place] [address] Neurology 03/02/24 Additional Source Comments The information contained in this document represents components of the legal health record. It is not the complete legal health record.[facility]
--- OUTSIDE RECORDS SUMMARY | 2024-12-20 08:22 | XMS_ITS | Encounter Summary ---
Author Organization [facility] Address [address] [place] [address] Phone Care Team Providers Care New Car Make Ready Worker Name Role Phone Boris Owens MD Primary Care Provider [phone] Aleksander Lucia MD Unavailable [phone] Arun Alfaro MD Unavailable + Encounter Details Date Type Department Care Team (Late st Contact Info) Description 03/01/2024 Procedure Pass [facility] [address] [place] [address] Social History Tobacco Use Types Packs/Day Years [...] 03/01/2024 9:14 AM Jennifer Pemberton RN * [place] Suicide Severity Rating Scale (Screener/Recent Self-Report) Question [...] on filedocumented in this encounter Care Teams New Car Make Ready Worker Relationship Specialty Start Date End Date Boris Owens MD [address] [place] [address] PCP - General Internal Medicine 11/26/21 Aleksander Lucia MD [address] [place] [phone] Vascular Surgery 03/02/24 Arun Alfaro MD [address] [place] [address] [place] [address] Neurology 03/02/24 documented as of this encounter Additional Source Comments The information contained in this document represents components of the legal health record. It is not the complete legal health record.[facility]
--- OUTSIDE RECORDS SUMMARY | 2024-12-20 08:22 | XMS_ITS ---
Author Name [facility] Organization Unknown Care Team Organization Name Specialty Phone Email Start Date End Da te [facility] Primary Care 12/21/2021 10/02/2023
--- OUTSIDE RECORDS SUMMARY | 2024-12-20 08:23 | XMS_ITS | Clinical Summary ---
Author Organization [address] [place] [address] Address [address] [place] [address] Phone Care Team Providers Care Bicycle I Assembler Name Role Phone Boris Owens MD Primary Care Provider [phone] Allergies No known active allergies Medications triamcinolone (KENALOG) 0.1 % dental paste APPLY TO MOUTH SORE 2 TIMES DAILY NEEDED (GENERIC FOR KENALOG) 4 Active blood-glucose meter kit 1 kit by [...] 1 (one) time each day. OTC Active glucosamine/D3 /boswellia amrik (GLUCOSAMINE DAILY COMPLEX ORAL) Take by mouth. Activ e OMEGA-3 FATTY ACIDS-FISH OIL ORAL Take by mouth 1 (one) time each day. OTC Active cyanocobalamin (VIT B-12) 1,000 mcg tablet extended release ER tablet Take 1 tablet (1,000 mcg total) by mouth 1 (one) time each day. OTC Active blood sugar diagnostic (FreeStyle Lite Strips) test strip Use as instructed 200 each 3 5 Active aspirin 81 mg EC tablet Take 1 tablet (81 mg total) by mouth 1 (one) time each day. 90 tablet 1 5 Active freestyle (FreeStyle Lancets) 28 gauge lancets USE TO CHECK BLOOD SUGARS 3 TIMES DAILY 100 each 3 5 Active tamsulosin (FLOMAX) 0.4 mg 24 hr capsule Take 1 capsule (0.4 mg total) by mouth 1 (one) time each day. Capsules should be taken 30 minutes following the same meal each day. 30 each 11 5 06/18/19 26 Active acetaminophen (TYLENOL) 325 mg tablet Take 2 tablets (650 mg total) by mouth every 8 (eight) hours if needed for mild pain. 2 Active Viagra 50 mg tablet TAKE 1 TABLET NEEDED FOR ERECTILE DYSFUNCTION 20 tablet 1 5 Active acyclovir (ZOVIRAX) 5 % ointment APPLY TOPICALLY 6 TIMES A DAY DIRECTED. -GENERIC FOR ZOVIRAX 15 g 1 5 Active Tenormin 50 mg tablet TAKE 1 TABLET 1 TIME EACH DAY. 90 tablet 5 Active ZestriL 40 mg tablet TAKE 1 TABLET 1 TIME EACH DAY. 90 tablet 5 Active Synthroid 175 mcg tablet TAKE 1 TABLET 1 TIME EACH DAY BEFORE BREAKFAST. 90 tablet 5 Active Neurontin 100 mg capsule TAKE 1 CAPSULE AT BEDTIME 90 capsule 5 Active Zocor 40 mg tablet TAKE 1 TABLET AT BEDTIME 90 tablet 5 Active probenecid (BENEMID) 500 mg tablet Take 1 tablet (500 mg total) by mouth 1 (one) time each day. 90 tablet 5 Active diclofenac (VOLTAREN) 1 % topical gel Apply 2 gram four times daily to affected joint 100 g 5 Active predniSONE (DELTASONE) 10 mg tablet Take 2 tabs PO daily for 3 days then 1 tab PO daily for 4 days 10 tablet 5 12/05/19 25 Discontin ued(Thera py completed ) Hospital, Clinic, or Other Facility Administered Medication [...] 03/19/2024 Hyperglycemia due to diabete s mellitus ([facility] V24, [facility] V28) 03/19/2024 Neck pain 03/19/2024 Rigors 03/19/2024 Sore throat 03/19/2024 Candidiasis of mouth 03/19/2024 Real time reverse transcript ase PCR positive for COVID-19 virus 08/28/2023 Gastroesophageal reflux disease without esophagi tis 07/12/2023 Sensation of foreign body in throat 07/12/2023 Severe obesity (BMI 35.0-35. 9 with comorbidity) ([facility] V24, [facility] V28) 04/21/2023 History of tobacco abuse 04/21/2023 Need for prophylactic vaccin ation against Streptococcus pneumoniae (pneumococcus) 04/21/2023 Grade II hemorrhoids 11/21/2022 Oral thrush 11/30/2021 Cervical spine disease 07/22/2021 Overview (04/21/2023): s/p surgery by Dr. 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 ([facility] V24, [facility] V28) 07/01/2020 Chronic venous insufficiency 09/30/2018 Chronic sinusitis 08/23/2018 Osteoarthritis 08/23/2018 Overview (04/21/2023): Lumbar Spine, Hips, Hands Cataract 08/23/2018 Migraine with aura 08/23/2018 Carpal tunnel syndrome 08/23/2018 Essential tremor 08/23/2018 Type 2 diabetes mellitus wit h neurological manifestations ([facility] V24, [facility] V28) 08/23/2018 Microalbuminuria 06/25/2018 PAD (peripheral artery disease) ([facility] V24) Overview (04/21/2023): US: confirm 11/30/22 Right TEETEE 0.89 Left TEETEE 1.21 Lung nodule 12/16/2014 Overview (04/21/2023): Near anterior 7th rib on the right. Venous insufficiency of both lower extremities 0 06/27/2013 Vertigo, benign positional 06/27/2013 Type 2 diabetes mellitus wit h renal manifestations ([facility] V24, [facility] V28) 08/15/2011 Overview (04/21/2023): Diet controlled AAA (abdominal aortic aneury sm) without rupture ([facility] V24) 07/11/2008 Overview (04/21/2023): 02/2018 4.4 cm Renal calculi 12/31/2007 Primary hypertension 05/01/2006 Gout 02/15/2005 Hypothyroidism 02/15/2005 Hyperlipemia 02/15/2005 Encounters Date Type Department Care Team Description 12/04/2024 9:30 AM EDT Office Visit Orthopedics - [address] [phone] Carlos Hutchinson PA Primary osteoarthritis of both knees (Primary Dx); Nontraumatic rupture of right long head biceps tendon; Acute pain of right shoulder 11/14/2024 Telephone Adult Medicine [address] [phone] Cedrick Rodriguez PA 10/30/2024 Telephone Adult Medicine [address] [phone] Boris Owens MD from Last 3 Months Immunizations Immunization Administration Dates Next Due Influenza Quadravalent, MDCK , 0.5ml, with preservative (Flucelvax) 6mo and older 01/04/2017 Influenza trivalent, 0.5mL ( Fluzone High-dose) 65yo and older 11/21/2022,11/03/2021,11/02/2020,11/14,01/21/2019 Influenza trivalent, with pr eservative (Fluzone; Afluria) 6mo and older 01/15/2014,12/06/2012,11/22/2011,01/11 [employer]tech SARS-CoV-2 COVID-19, mRNA, LNP-S, preservative free 12/09/2020,04/15/2020,03/25/2020 Pneumococcal polysaccharide 23 valent (Pneumovax 23) 2yo and older 11/30/2021,01/11/2010 Td Tetanus diptheria (Tdvax) 7yo and older 05/01/2006 Tdap Tetanus diptheria acell ular pertussis (Boostrix; Adacel) 7yo and older 05/01/2006 Zoster Live 12/30/2014 Surgical History Surgery Date Site/Laterality Comments OTHER SURGICAL HISTORY PROCEDURE: OK UNLISTED PROCEDURE FEMUR/KNEE; COMMENT: l knee OTHER [...] HISTORICAL LITHOTRIPSY OTHER SURGICAL HISTORY 06/06/2008 PROCEDURE: OK FISSURECTOMY INCL SPHINCTEROTOMY WHEN PERFORMED Medical History [...] DX:Hypothyroidis m PAD (peripheral artery disea se) ([facility] V24) 03/12/2018 DX:PAD (peripheral artery di sease) ([facility]) AAA (abdominal aortic aneury sm) without rupture ([facility] V24) 07/11/2008 DX:AAA (abdominal aortic aneurysm) without rupture (HCC); COMMENT: 02/2018 4.4 cm Chronic sinusitis 08/23/2018 DX:Chronic sin usitis Osteoarthritis 08/23/2018 DX:Osteoarthriti s; COMMENT: Lumbar Spine, Hips, Hands Cataract 08/23/2018 DX:Cataract Type 2 diabetes mellitus wit h cataract ([facility] V24, [facility] V28) 08/23/2018 DX:Type 2 diabetes mellitus with cataract (HCC) Migraine with aura 08/23/2018 DX:Migraine w ith aura Carpal tunnel syndrome 08/23/2018 DX:Carpal tunnel syndrome Essential tremor 08/23/2018 DX:Essential tr emor Type 2 diabetes mellitus wit h neurological manifestations ([facility] V24, [facility] V28) 08/23/2018 DX:Type 2 diabetes mellitus with neurological manifestations (HCC) Type 2 diabetes mellitus wit h renal manifestations ([facility] V24, [facility] V28) 08/15/2011 DX:Type 2 diabetes mellitus with [...] for your loved ones. For example, children's service supervisor or elderly care for an older adult? [...] 2:15 PM EST Office Visit [facility] [place] [address] [address] Swapnil Ghosh NP [address] [place] [phone] 01/01/2025 11:30 AM EST Office Visit Orthopedics [address] [phone] Carlos Hutchinson PA [address] [place] [phone] Health Maintenance Due Date Last Done Comments [...] Procedure Name Priority Date/Time Associated Diagnosis Comments OK ARTHROCENTESIS/ASPIR ATION/INJECTION MAJOR JOINT/BURSA W/O U/S GUIDANCE Routine 12/04/2024 9:30 AM EDT Primary osteoarthritis of both knees HEMOGLOBIN A1C Routine 06/11/2024 9:05 AM EDT Type 2 diabetes mellitus with neurological manifestations ([facility] V24, [facility] V28) MICROALBUMIN CREATININE URINE RATIO Routine 01/01/2024 8:10 AM EST Type II or unspecified type diabetes mellitus with neurological manifestations, not stated as uncontrolled(250.60) ([facility] V24, [facility] V28) from Last 3 Months or Most Recently Relevant to Health Maintenance Results * OK ARTHROCENTESIS/ASPIRATION/INJECTION MAJOR JOINT/BURSA W/O U/S GUIDANCE (12/04/2024 9:30 AM EDT) Carlos Tim PA - 12/04/2024 9:30 AM EDT KEVIN [...] LAB CHEMISTRY METHOD 06/11/2024 12:47 PM EDT [facility] Mean Bld Glu Estim. 137 mg/dL LAB CHEMISTRY METHOD 06/11/2024 12:47 PM EDT [facility] Blood Venous blood specimen / Unknown Venipuncture / Unknown 06/11/2024 9:05 AM EDT 06/11/2024 9:05 AM EDT us Boris Owens MD LAB BLOOD ORDERABLES Final Resul t Performing Organization Address City/[facility]/ZIP Co de Phone Number [facility] [address] [place] [address], [place] [phone] * Microalbumin creatinine urine ratio (01/01/2024 8:10 AM EST) Creatinine, Urine 94.0 mg/dL LAB CHEMISTRY METHOD 01/01/2024 10:46 AM EST [facility] Microalb, Ur 14.5 0.0 - 29.0 mg/L LAB CHEMISTRY METHOD 01/01/2024 10:46 AM EST [facility] Microalb/Creat Ratio 15 <30 mg/g creat LAB CHEMISTRY METHOD 01/01/2024 10:46 AM EST [facility] Urine Urine specimen obtained by clean catch procedure / Unknown Non-blood Collection / Unknown 01/01/2024 8:10 AM EST 01/01/2024 8:10 AM EST us Boris Owens MD LAB URINE ORDERABLES Final Resul t Performing Organization Address [facility]/ZIP Co de Phone Number [facility] [address] [place] [address], [place] [phone] from Last 3 Months or Most Recently Relevant to Health Maintenance Insurance [employer] Care Teams Bicycle I Assembler Relationship Specialty Start Date End Date Boris Owens MD [address] [place] [address] PCP - General Internal Medicine 01/01/21
== END 2024-12-20 08:14 | disposition home or self-care (01) ==
LOC: HO.US 08:13
PROVIDERS: PCP Internal Medicine; Visit Provider Surgery Vascular Surgery
DX: I71.43 Infrarenal abdominal aortic aneurysm, without rupture (principal); I73.9 Peripheral vascular disease, unspecified
CPT/HCPCS: 76706; 93922; 93925

== ENCOUNTER → 2024-12-20 08:20 | Outpatient (BNV) | payer MEDICARE, SELFPAY | PROVIDERS: PCP Internal Medicine; Visit Provider Radiology Diagnostic Radiology | DX: I71.43 Infrarenal abdominal aortic aneurysm, without rupture (principal); I73.9 Peripheral vascular disease, unspecified | CPT/HCPCS: 76706; 93922; 93925 ==

== ENCOUNTER 2025-01-07 09:32 | Outpatient (AMB) | payer MEDICARE, SELFPAY ==
--- OUTSIDE RECORDS SUMMARY | 2025-01-03 09:30 | XMS_ITS | Encounter Summary ---
Author Organization [facility] Address [address] [place] [address] Care Team Providers Care Nodulizer Name Role Phone Unavailable Primary Care Provider Unavailabl e Reason for Visit * Reason Comments Dental Exam Encounter Details Date Type Department Care Team ([facility] st Contact Info) Description 01/03/2025 9:30 AM EST Office Visit [facility] ADULT D[facility] [address] [place] [address] Jonathon Acosta DDS [address] [place] [address] Social History Tobacco Use Types Packs/Day Years [...] as of this encounter Progress Notes * Jonathon Acosta DDS - 01/03/2025 9:30 AM EST Dental procedures in this visit D0140 - LIMITED ORAL EVALUATION - PROBLEM FOCUSED (Completed) Service provider: Jonathon Acosta DDS Billing provider: Zenobia Evans DDS Patient ID: Sam Villareal is a 79 y.o. male. Time Out: Date: 01/03/2025 Location: [facility] Tooth: Mandible Procedure: Exam and Restorationism Adjustment Verified the above with patient, religious assistant, and provider. Confirmed via patient's chart, intraorally and by radiographs. Single Stroke Preformer: not applicable 79 y.o. y/o male presents for limited exam with Dr. Jonathon Acosta DDS Medical history: Reviewed in EHR Vitals: There were no vitals taken for this visit. Allergies: Reviewed in EHR Medications: Reviewed in EHR Radiographs taken: None on this visit CHIEF COMPLAINT: My gums are hurting right here on the bottom right and I am also getting lacerated on the left side of my mouth, where they cut off the cantilever Discussion: Patient presented at consult referring bi-lateral pain around the gingival margins of the cantilevers that were previously sectioned (please review notes 08/10/2023). Clinical examinationreveals no significant traumatic gingival alterations, however patient states that his sensitivity is usually right after he flosses with actuarial trainee floss, specially on the lower right quadrant area ofbridge abutment tooth 27. On the opposite end, LL quadrant, tooth #21 presents a defective evangelical with recurrent caries which patient expresses to be trapping food and causing him tongue lacerations. Radiographic and clinical observation reveals severe decay underneath bridge abutment teeth and root resorption. Patient has been explained that the prognosis of the teeth holding this bridge isnot adequate as there is extensive bone loss and advanced carious lesions which will sooner rather than later cause this prosthetic work to fail. Removal of bridge and extractions have been recommended in preparation for full lower dentures. Patient is receptive to treatment and will seek to start it after the holidays. Patient has been prescribed Peridex for bacterial elena control, additionallypatient has been advised to make gentle use of floss actuarial trainee to avoid gum irritation and to start using Listerine or [employer] Alcohol Free Mouthwash diluted 50/50 with water after Peridex finishes, minimum of two times a day after brushing to improve oral hygiene. Additionally, patient would like to have tooth #11 fixed on his upper denture, tooth is broken. Treatment provided during this visit: #21 smoothing and recontouring of overhang. NV: Fix Broken Tooth on Upper Denture Provider: Dr. Jonathon Acosta DDS Dental Softball Player: Mindi Andrews Attending: Dr. Zenobia Evans documented in this encounter Plan of Treatment Upcoming Encounters Date Type Department Care Team (Late st Contact Info) Description 06/09/2025 2:15 PM EDT Office Visit [facility] ADULT D[facility]AL [address] [place] [address] Amilcar Thomas Scheduled Orders Name Type Priority Associated Diagnoses Orde r Schedule 21 21 EXTRACTION, ERUPTED TOOTH OR EXPOSED ROOT (ELEVATION/FORCEPS REMOVAL) Dental Routine [address] arting 01/03/2025 22 22 EXTRACTION, ERUPTED TOOTH OR EXPOSED ROOT (ELEVATION/FORCEPS REMOVAL) Dental Routine [address] arting 01/03/2025 26 26 EXTRACTION, ERUPTED TOOTH OR EXPOSED ROOT (ELEVATION/FORCEPS REMOVAL) Dental Routine [address] arting 01/03/2025 27 27 EXTRACTION, ERUPTED TOOTH OR EXPOSED ROOT (ELEVATION/FORCEPS REMOVAL) Dental Routine [address] arting 01/03/2025 Jose J Jose J COMPLETE DENTURE - MANDIBULAR Dental Routine 1 Occurrenc es starting 01/03/2025 28 28 EXTRACTION, ERUPTED TOOTH OR EXPOSED ROOT (ELEVATION/FORCEPS REMOVAL) Dental Routine [address] arting 01/03/2025 documented as of this encounter Goals Goal Patient Goal Type Associated Problems Recent Progress Patient-Stated? Author Help patients manage their type 2 diabetes Care Plan Help patients manage their type 2 diabetes No Zamora, Kelsea Weekly blood pressure task Care Plan Weekly blood pressure task No Zamora, Kelsea Help patients manage their type 2 diabetes Care Plan Help patients manage their type 2 diabetes No Zamora, Kelsea Patient has diabetic eye disease Care Plan Patient has diabetic eye disease No Zamora, Kelsea Help patients manage their type 2 diabetes Care Plan Help patients manage their type 2 diabetes No Zamora, Kelsea Patient has chronic kidney disease Care Plan Patient has chronic kidney disease No Zamora, Kelsea Weekly blood pressure task Care Plan Weekly blood pressure task No Zamora, Kelsea Weekly blood pressure task Care Plan Weekly blood pressure task No Zamora, Kelsea Patient has diabetic eye disease Care Plan Patient has diabetic eye disease No Zamora, Kelsea Patient has diabetic eye disease Care Plan Patient has diabetic eye disease No Zamora, Kelsea Patient has chronic kidney disease Care Plan Patient has chronic kidney disease No Zamora, Kelsea Patient has chronic kidney disease Care Plan Patient has chronic kidney disease No Zamora Kelsea Weekly blood pressure task Care Plan Weekly blood pressure task No Mindi Andrews Weekly blood pressure task Care Plan Weekly blood pressure task No Mindi Andrews Weekly blood pressure task Care Plan Weekly blood pressure task No Mindi Andrews Patient has diabetic eye disease Care Plan Patient has diabetic eye disease No Mindi Andrews Patient has diabetic eye disease Care Plan Patient has diabetic eye disease No Mindi Andrews Patient has diabetic eye disease Care Plan Patient has diabetic eye disease No Mindi Andrews Patient has chronic kidney disease Care Plan Patient has chronic kidney disease No Mindi Andrews Patient has chronic kidney disease Care Plan Patient has chronic kidney disease No Mindi Andrews Patient has chronic kidney disease Care Plan Patient has chronic kidney disease No Mindi Andrews documented as of this encounter Procedures Procedure Name Priority Date/Time Associated Diagnosis Comments LIMITED ORAL EVALUATION - PROBLEM FOCUSED Routine 01/03/2025 9:30 AM EST documented in this encounter Visit Diagnoses Not on filedocumented in this encounter Additional Health Concerns Active Problems Noted Date Diagnosed Date Help patients manage their type 2 diabetes 01/02 Weekly blood pressure task 01/02/2025 Help patients manage their type 2 diabetes 01/02 Patient has diabetic eye disease 01/02/2025 Help patients manage their type 2 diabetes 01/02 Patient has chronic kidney disease 01/02/2025 Weekly blood pressure task 01/02/2025 Weekly blood pressure task 01/02/2025 Patient has diabetic eye disease 01/02/2025 Patient has diabetic eye disease 01/02/2025 Patient has chronic kidney disease 01/02/2025 Patient has chronic kidney disease 01/02/2025 Weekly blood pressure task 01/03/2025 Weekly blood pressure task 01/03/2025 Weekly blood pressure task 01/03/2025 Patient has diabetic eye disease 01/03/2025 Patient has diabetic eye disease 01/03/2025 Patient has diabetic eye disease 01/03/2025 Patient has chronic kidney disease 01/03/2025 Patient has chronic kidney disease 01/03/2025 Patient has chronic kidney disease 01/03/2025 documented as of this encounter
--- OUTSIDE RECORDS SUMMARY | 2025-01-06 11:30 | XMS_ITS | Encounter Summary ---
Author Organization [employer] [facility] Address [address] [place] [address] Care Team Providers Care Jeep Driver Name Role Phone Unavailable Primary Care Provider Unavailabl e Reason for Visit * Reason Comments broken denture tooth Impressions to fix broken denture Encounter Details Date Type Department Care Team ([facility] st Contact Info) Description 01/06/2025 11:30 AM EST Office Visit [facility] ADULT DENTAL [address] [place] [address] Jonathon Acosta DDS [address] [place] [address] Social History Tobacco Use Types Packs/Day Years [...] Progress Notes * Jonathon Acosta DDS - 01/06/2025 11:30 AM EST Dental procedures in this visit D9999.5 - NO CHARGE PROCEDURE Patient ID: Sam Villareal is a 79 y.o. male. Time Out: Date: 01/06/2025 Location: [facility] Tooth: #11 Procedure: Denture Repair Verified the above with patient, medical receptionist assistant, and provider. Confirmed via patient's chart, intraorally and by radiographs. Hospitality Internship: not applicable 79 y.o. y/o male presents for limited exam with Dr. Jonathon Acosta DDS Medical history: Reviewed in EHR Vitals: There were no vitals taken for this visit. Allergies: Reviewed in EHR Medications: Reviewed in EHR CHIEF COMPLAINT: I am just here to have the tooth on my denture fixed Discussion: Patient presented at consult to proceed with having tooth #11 replaced on his upper denture, due to mesial fracture. Patient presents deep bite in the area of the fractured tooth which may induce a recurrent fracture if repaired. Patient will be having his lower bridge removed and full lower dentures fabricated after the holidays; it was advised that to accrue for better prosthetic balance and longevity of the tooth to be repaired, it would be moran to do the repair and full lower dentures at the same time. Patient agreed. Meanwhile tooth was smoothed out for any sharp edges; patient satisfied and left in stable conditions. NV: Extractions Provider: Dr. Jonathon Acosta DDS Dental Parking Ramp Attendant: Mindi Andrews Attending: Dr. Charlton documented in this encounter Plan of Treatment Upcoming Encounters Date Type Department Care Team (Late st Contact Info) Description 06/09/2025 2:15 PM EDT Office Visit [facility] ADULT DENTAL [address] [place] [address] Amilcar Thomas Scheduled Orders Name Type Priority Associated Diagnoses Orde r Schedule DENTURE IMPRESSION Dental Routine 1 Occu rrences starting 01/06/2025 documented as of this encounter Goals Goal [...] Plan Patient has chronic kidney disease No ZamoraGilbertoKelsea Weekly blood pressure task Care Plan Weekly [...] has chronic kidney disease No Mindi Andrews Weekly blood pressure task Care Plan Weekly blood pressure task No Jonathon Acosta DDS Weekly blood pressure task Care Plan Weekly blood pressure task No Jonathon Acosta DDS Weekly blood pressure task Care Plan Weekly blood pressure task No Jonathon Acosta DDS Patient has diabetic eye disease Care Plan Patient has diabetic eye disease No Jonathon Acosta DDS Patient has diabetic eye disease Care Plan Patient has diabetic eye disease No Jonathon Acosta DDS Patient has diabetic eye disease Care Plan Patient has diabetic eye disease No Jonathon Acosta DDS Patient has chronic kidney disease Care Plan Patient has chronic kidney disease No Jonathon Acosta DDS Patient has chronic kidney disease Care Plan Patient has chronic kidney disease No Jonathon Acosta DDS Patient has chronic kidney disease Care Plan Patient has chronic kidney disease No Jonathon Acosta DDS documented as of this encounter Procedures Procedure Name Priority Date/Time Associated Diagnosis Comments NO CHARGE PROCEDURE Routine 01/06/2025 11:30 AM EST documented in this encounter Visit Diagnoses Not on filedocumented in this encounter Additional Health Concerns Active Problems Noted Date Diagnosed Date Help patients manage their type 2 diabetes 11/20 /2025 Weekly blood pressure task 01/02/2025 Help patients [...] 01/03/2025 Patient has chronic kidney disease 01/03/2025 Weekly blood pressure task 01/06/2025 Weekly blood pressure task 01/06/2025 Weekly blood pressure task 01/06/2025 Patient has diabetic eye disease 01/06/2025 Patient has diabetic eye disease 01/06/2025 Patient has diabetic eye disease 01/06/2025 Patient has chronic kidney disease 01/06/2025 Patient has chronic kidney disease 01/06/2025 Patient has chronic kidney disease 01/06/2025 documented as of this encounter
--- NOTE | 2025-01-07 09:44 | A.OFFVIS_ITS ---
Intake Visit Reasons: Follow Up AAA US Intake Note: Follow up Art & Abd US 12/20/24, no complaints about legs Investigator Utility Bill Complaints Required: No Accompanied by: Self / Same As Patient Allergies No Known Allergies Allergy (Verified 01/07/25 09:46) HPI HPI Follow Up AAA US: Details: The patient is an 79 year old individual presenting for follow-up of peripheral vascular disease and aortic aneurysm. The patient appears to be doing well. The patient has a history of peripheral vascular disease and underwent a procedure on the left leg approximately six years ago. Prior to the procedure, the patient experienced terrible pain and could not move the leg, but now reports no pain in that leg. Recent arterial testing showed that blood flow to t he legs is good. Regarding the aortic aneurysm, it has increased slightly in size and is now approximately 5 cm. The patient reports new problems with knee pain, specifically in the right knee. The patient is awaiting test results for the knees and has an appointment with another doctor next week to discuss them. He now presents to us for vascular follow-up [facility] Medical History Bilateral carpal tunnel syndrome Type 2 diabetes mellitus PAD (peripheral artery disease) Venous insufficiency AAA (abdominal aortic aneurysm) Surgical History S/P anal fissurectomy Hx of colonoscopy Hyperplastic colon polyp H/O elbow surgery H/O foot surgery Hx of hand surgery H/O lithotripsy Hx of knee surgery History of femoral angiogram Family History Mother Tremor Review of Systems Const All systems reviewed & are unremarkable except as noted in HPI and below Reports no additional complaints ENT Reports Normal hearing present Card Denies chest pain, Denies chest pain at rest, Denies chest pain with activity and Denies pedal edema Resp Denies cough GI Denies abdominal pain Musc Denies abnormal gait, Denies muscle cramps and Denies radiating pain into limb Skin/Breast Denies skin ulcer and Denies wounds Neuro Reports Normal hearing present and Denies abnormal gait Psych Reports no additional complaints Physical Exam Const General: cooperative, healthy appearing and comfortable Orientation/consciousness: oriented to person, oriented to place and oriented to time HEENT Head: Yes normal to inspection Neck Neck: Yes normal visual inspection Carotids: no bruits Chest Chest palpation & inspection: normal inspection of the chest Resp Effort & Inspection: normal respiratory effort and able to speak in complete sentences Auscultation: clear to auscultation bilaterally, no crackles, no rales, no rhonchi and no wheezes Cardio Other: Bilateral DP signals Rate: regular rate Rhythm: regular rhythm Heart sounds: S1 normal heart sound present and S2 normal heart sound present Bruits: no carotid bruits Peripheral pulses: Peripheral pulses 2+ throughout GI Inspection: Yes normal to inspection Skin Wounds: no wounds Hair: normal Neuro General: oriented to person, oriented to place and oriented to time Cranial nerves: Yes CN's II-XII intact bilaterally and Yes Normal hearing pre sent Cognition (Neuro): normal cognition Motor exam (neuro): 5/5 motor strength present throughout Extrem Other: venous exam: +1 edema General: No clubbing, No cyanosis and Yes edema Psych Appearance: grossly normal Mental Status: mental status grossly normal Speech and movement: Normal speech and movement present Results Reviewed Results Reviewed: Aortic ultrasound [id number] cm abdominal aortic aneurysm Lower extremity arterial testing dated 12/20/2024 demonstrates TEETEE on the right of 0.97 and on the left of 1.17 Assessment & Plan Assessment & Plan (1) PAD (peripheral artery disease): Comment: 11/14/2018 - left peroneal atherectomy and plasty Code(s): I73.9 - Peripheral vascular disease, unspecified Category: Medical Plan: In short patient has stable claudication. I did review the pathophysiology of peripheral vascular disease with the patient. In addition we did discuss routine conservative measures including a healthy diet and the importance of exercise and ambulation. We did discuss risk factor modification. The patient will continue to to follow-up with surveillance follow-up in approximately 1 year. Thank you for allowing us to participate in this patient's care. If there are any questions or concerns please do not hesitate to contact us. (2) AAA (abdominal aortic aneurysm): Code(s): I71.4 - Abdominal aortic aneurysm, without rupture Category: Medical Qualifiers: Abdominal aorta location: infrarenal aorta Presence of rupture: without rupture Qualified Code(s): I71.43 - Infrarenal abdominal aortic aneurysm, without rupture Plan: In short patient has radiologic evidence of a AAA on ultrasound dated 12/20/2024 demonstrates 5 cm. We have discussed the pathophysiology of aortic aneurysms and the risk of ruptures. We have discussed rupture risk based on size. In addition we have discussed conservative measures and risk factor modification for prevention of increase in size of the aneurysm. the patient is scheduled for surveillance follow-up in approximately 6 months. Thank you for allowing us to participate in the care of this patient Plan Patient was informed and verbally consented to the use of an ambient scribe for clinic note documentation during this visit. Orders: Orders US abdominal aortic aneurysm 6 Months I71.43 - Infrarenal abdominal aortic aneurysm, without rupture US arterial duplex LE BI 1 Year I73.9 - Peripheral vascular disease, unspecified Patient Instructions: - We will get another ultrasound of your belly in 6 months to check on the size of your aneurysm. - If the aneurysm gets bigger, you may need a procedure to fix it. - This procedure involves placing a stent inside the blood vessel through a small cut in your groin and requires a one-night stay in the hospital. - Continue to follow up with your other doctor about your knee pain. - We will see you back in our office in 6 months. Coding Level of Care Code Est Pt Level 4 (70974) Diagnoses PAD (peripheral artery disease) I73.9 Infrarenal abdominal aortic aneurysm (AAA) without rupture I71.43 Abdominal aorta location: infrarenal aorta Presence of rupture: without rupture
--- OUTSIDE RECORDS SUMMARY | 2025-01-07 11:02 | XMS_ITS | Encounter Summary ---
Author Organization [facility] Address [address] [place] [phone] Phone Care Team Providers Care Bioprocess Development Engineer Name Role Phone Boris Owens MD Primary Care Provider Aleksander Lucia MD Unavailable [phone] Arun Alfaro MD Unavailable + Encounter Details Date Type Department Care Team (Late st Contact Info) Description 03/01/2024 Procedure Pass [facility], [facility] [address] [place] [address] Social History Tobacco Use Types Packs/Day Years [...] 03/01/2024 9:14 AM Jennifer Pemberton RN * [place] Suicide Severity Rating Scale (Screener/Recent Self-Report) Question [...] on filedocumented in this encounter Care Teams Bioprocess Development Engineer Relationship Specialty Start Date End Date Boris Owens MD [address] [place] [address] PCP - General Internal Medicine 11/26/21 Aleksander Lucia MD [address] [place] [id number] Vascular Surgery 03/02/24 Arun Alfaro MD [address] [place] [address] [place] [address] Neurology 03/02/24 documented as of this encounter Additional Source Comments The information contained in this document represents components of the legal health record. It is not the complete legal health record.[facility]
--- OUTSIDE RECORDS SUMMARY | 2025-01-07 11:02 | XMS_ITS | Encounter Summary ---
Author Organization [facility] Address [address] [place] [phone] Phone Care Team Providers Care Pig Farm Manager Name Role Phone Boris Owens MD Primary Care Provider [phone] Aleksander Lucia MD Unavailable [phone] Arun Alfaro MD Unavailable + Encounter Details Date Type Department Care Team (Late st Contact Info) Description 03/01/2024 Procedure Pass [facility], Ct Scan - [facility] [address] [place] [address] Social History Tobacco Use Types Packs/Day Years [...] 03/01/2024 9:14 AM Jennifer Pemberton RN * [place] Suicide Severity Rating Scale (Screener/Recent Self-Report) Question [...] on filedocumented in this encounter Care Teams Pig Farm Manager Relationship Specialty Start Date End Date Boris Owens MD [address] [place] [address] PCP - General Internal Medicine 11/26/21 Aleksander Lucia MD [address] [place] [address] Vascular Surgery 03/02/24 Arun Alfaro MD [address] [place] [address] [place] [address] Neurology 03/02/24 documented as of this encounter Additional Source Comments The information contained in this document represents components of the legal health record. It is not the complete legal health record.[facility]
--- OUTSIDE RECORDS SUMMARY | 2025-01-07 11:02 | XMS_ITS | Encounter Summary ---
Author Organization [facility] [facility] Address [address] [place] [address] Care Team Providers Care Oil Burner Journeyman Name Role Phone Unavailable Primary Care Provider Unavailabl e Reason for Visit * Reason Onset Date Comments limited exam no insurance paying out of pocket 1 03/04/2024 Encounter Details Date Type Department Care Team ([facility] Contact Info) Description 01/02/2025 Telephone [facility] ADULT D[facility] [address] [place] [address] Jonathon Acosta DDS [address] [place] [address] limited exam no insurance paying out of pocket Social History Tobacco Use Types Packs/Day Years [...] * Telephone Encounter - Kelsea Zamora - 01/02/2025 1:07 PM EST Patient is self pay. Patient is aware that he should speak to insurance enrollment prior to appointment however unable to do go to [facility] prior to. Willing to pay out of pocket and then speak to insurance and go from there. documented in this encounter Plan of Treatment Upcoming Encounters Date Type Department Care Team (Late st Contact Info) Description 06/09/2025 2:15 PM EDT Office Visit [facility] ADULT DENTAL [address] [place] [address] Amilcar Thomas documented as of this encounter Goals Goal [...] has chronic kidney disease No Zamora, Kelsea documented as of this encounter Visit Diagnoses [...] 01/02/2025 Patient has chronic kidney disease 01/02/2025 documented as of this encounter
--- OUTSIDE RECORDS SUMMARY | 2025-01-07 11:03 | XMS_ITS | Encounter Summary ---
Author Organization [employer] [facility] Address [address] [place] [address] Care Team Providers Care Computer Systems Architect Name Role Phone Unavailable Primary Care Provider Unavailabl e Reason for Visit * Reason Onset Date Comments appt 01/15/2024 Encounter Details Date Type Department Care Team (Late st Contact Info) Description 01/15/2024 Telephone [facility] [address] [place], [place] [phone] Johnnie Baez BDS [address] [place], [place] [id number] appt Social History Tobacco Use Types Packs/Day [...] Description 06/09/2025 2:15 PM EDT Office Visit [facility] ADULT DENTAL [address] [place] [address] Amilcar Thomas documented as of this encounter Visit Diagnoses Not on filedocumented in this encounter
--- OUTSIDE RECORDS SUMMARY | 2025-01-07 11:03 | XMS_ITS | Clinical Summary ---
Author Organization [address] [place] [address] [place] [phone] Phone Care Team Providers Care Save All Operator Name Role Phone Boris Owens MD Primary Care Provider [phone] Allergies No known active allergies Medications triamcinolone (KENALOG) 0.1 % dental paste Prescribed at [place], patient unsure of doctor 024 Active blood-glucose meter kit 1 kit by Not Applicable route. Prescribed in Endocrinology Active lecithin, soy 1,200 mg capsule capsule [...] 1 (one) time each day. OTC Active glucosamine/D3/b oswellia amrik (GLUCOSAMINE DAILY COMPLEX ORAL) Take by mouth. OTC Active OMEGA-3 FATTY ACIDS-FISH OIL ORAL Take by mouth 1 (one) time each day. OTC Active cyanocobalamin (VIT B-12) 1,000 mcg tablet extended release ER tablet Take 1 tablet (1,000 mcg total) by mouth 1 (one) time each day. OTC Active blood sugar diagnostic (FreeStyle Lite Strips) test strip Use as instructed 200 each 3 025 Active freestyle (FreeStyle Lancets) 28 gauge lancets USE TO CHECK BLOOD SUGARS 3 TIMES DAILY 100 each 3 025 Active acetaminophen (TYLENOL) 325 mg tablet Take 2 tablets (650 mg total) by mouth every 8 (eight) hours if needed for mild pain. OTC Active acyclovir (ZOVIRAX) 5 % ointment APPLY TOPICALLY 6 TIMES A DAY DIRECTED. -GENERIC FOR ZOVIRAX 15 g 1 025 Active probenecid (BENEMID) 500 mg tablet Take 1 tablet (500 mg total) by mouth 1 (one) time each day. 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 Capsules should be taken 30 minutes following the same meal each day. 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 at bedtime. 90 tablet 1 025 Active Viagra 50 mg tablet TAKE 1 TABLET NEEDED FOR ERECTILE DYSFUNCTION - PATIENT NEEDS TO BE SEEN FOR FURTHER REFILLS. 20 tablet 2 025 Active meclizine (ANTIVERT) 12.5 mg tablet TAKE 1 TABLET BY MOUTH AT BEDTIME NEEDED FOR DIZZINESS Active primidone (MYSOLINE) 50 mg tablet Take 1 tablet (50 mg total) by mouth. at bedtime. Active aspirin 81 mg EC tablet Take 1 tablet (81 mg total) by mouth 1 (one) time each day. 90 tablet 1 025 2024 Discontinued(R eorder) tamsulosin (FLOMAX) 0.4 mg 24 hr capsule Take 1 capsule (0.4 mg total) by mouth 1 (one) time each day. Capsules should be taken 30 minutes following the same meal each day. 30 each 025 2024 Discontinued(R eorder) Viagra 50 mg tablet TAKE 1 TABLET NEEDED FOR ERECTILE DYSFUNCTION 20 tablet 1 025 2024 Discontinued Tenormin 50 mg tablet TAKE 1 TABLET 1 TIME EACH DAY. 90 tablet 2024 Discontinued(R eorder) ZestriL 40 mg tablet TAKE 1 TABLET 1 TIME EACH DAY. 90 tablet 2024 Discontinued(R eorder) Synthroid 175 mcg tablet TAKE 1 TABLET 1 TIME EACH DAY BEFORE BREAKFAST. 90 tablet 2024 Discontinued(R eorder) Neurontin 100 mg capsule TAKE 1 CAPSULE AT BEDTIME 90 capsule 2024 Discontinued(R eorder) Zocor 40 mg tablet TAKE 1 TABLET AT BEDTIME 90 tablet 2024 Discontinued(R eorder) Hospital, Clinic, or Other Facility Administered Medication Ordered Dose Route Frequency Start Date End Date Status lidocaine (XYLOCAINE) 1 % injection 4 mLIndications:Bilate ral shoulder pain, unspecified chronicity 4 mL Once PRN Procedure 01/01/2025 01/01/2025 Ended methylPREDNISolone acetate (DEPO-Medrol) injection 80 mgIndications:Bilate ral shoulder pain, unspecified chronicity 80 mg Once PRN Procedure 01/01/2025 01/01/2025 Ended Active Problems Problem Noted Date Diagnosed Date Class 1 obesity 03/19/2024 Fever 03/19/2024 Hallux rigidus of right foot 03/19/2024 Hyperglycemia due to diabete s mellitus ([facility] [place], [facility] [place] V28) 03/19/2024 Neck pain 03/19/2024 Rigors 03/19/2024 Sore throat 03/19/2024 Candidiasis of mouth 03/19/2024 Real time reverse transcript ase PCR positive for COVID-19 virus 08/28/2023 Gastroesophageal reflux disease without esophagi tis 07/12/2023 Sensation of foreign body in throat 07/12/2023 Severe obesity (BMI 35.0-35. 9 with comorbidity) ([facility] V24, [facility] [place] V28) 04/21/2023 History of tobacco abuse 04/21/2023 Need for prophylactic vaccin ation against Streptococcus pneumoniae (pneumococcus) 04/21/2023 Grade II hemorrhoids 11/21/2022 Oral thrush 11/30/2021 Cervical spine disease 07/22/2021 Overview (04/21/2023): s/p surgery by Dr. 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 ([facility] V24, [facility] V28) 07/01/2020 Chronic venous insufficiency 09/30/2018 Chronic sinusitis 08/23/2018 Osteoarthritis 08/23/2018 Overview (04/21/2023): Lumbar Spine, Hips, Hands Cataract 08/23/2018 Migraine with aura 08/23/2018 Carpal tunnel syndrome 08/23/2018 Essential tremor 08/23/2018 Type 2 diabetes mellitus wit h neurological manifestations ([facility] V24, [facility] V28) 08/23/2018 Microalbuminuria 06/25/2018 PAD (peripheral artery disease) ([facility] V24) Overview (04/21/2023): US: confirm 11/30/22 Right TEETEE 0.89 Left TEETEE 1.21 Lung nodule 12/16/2014 Overview (04/21/2023): Near anterior 7th rib on the right. Venous insufficiency of both lower extremities 0 06/27/2013 Vertigo, benign positional 06/27/2013 Type 2 diabetes mellitus wit h renal manifestations ([facility] V24, [facility] V28) 08/15/2011 Overview (04/21/2023): Diet controlled AAA (abdominal aortic aneury sm) without rupture ([facility] V24) 07/11/2008 Overview (04/21/2023): 02/2018 4.4 cm Renal calculi 12/31/2007 Primary hypertension 05/01/2006 Gout 02/15/2005 Hypothyroidism 02/15/2005 Hyperlipemia 02/15/2005 Encounters Date Type Department Care Team Description 01/01/2025 11:30 AM EST Office Visit Orthopedic[address] [phone] Carlos Hutchinson PA Bilateral shoulder pain, unspecified chronicity (Primary Dx); Bilateral hand numbness; Primary osteoarthritis of both knees 12/26/2024 Results Follow-Up Adult [address] [phone] Swapnil Ghosh NP 12/25/2024 3:20 PM EST Lab Draw [address] Cervical spine disease; Type 2 diabetes mellitus with other specified complication, unspecified whether longterm insulin use ([facility] V24, [facility] V28); Encounter for screening for malignant neoplasm of prostate; Type 2 diabetes mellitus with neurological manifestations ([facility] V24, [facility] V28) 12/25/2024 2:15 PM EST Office Visit Adult [address] [phone] Swapnil Ghosh NP Cervical spine disease (Primary Dx); 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, without long-term current use of insulin ([facility] V24, [facility] V28); Hypothyroidism, unspecified type; Primary hypertension; Benign prostatic hyperplasia with post-void dribbling 12/04/2024 9:30 AM EDT Office Visit [address] [phone] Carlos Hutchinson PA Primary osteoarthritis of both knees (Primary Dx); Nontraumatic rupture of right long head biceps tendon; Acute pain of right shoulder 11/14/2024 Telephone Adult Medicine [address] [phone] Cedrick Rodriguez PA 10/30/2024 Telephone Adult Medicine [address] [phone] Boris Owens MD from Last 3 Months Immunizations Immunization Administration Dates Next Due Influenza Quadravalent, MDCK , 0.5ml, with preservative (Flucelvax) 6mo and older 01/04/2017 Influenza trivalent, 0.5mL ( Fluzone High-dose) 65yo and older 11/21/2022,11/03/2021,11/02/2020,11/14,01/21/2019 Influenza trivalent, with pr eservative (Fluzone; Afluria) 6mo and older 01/15/2014,12/06/2012,11/22/2011,01/11 [employer] SARS-CoV-2 COVID-19, mRNA, LNP-S, preservative free 12/09/2020,04/15/2020,03/25/2020 Pneumococcal polysaccharide 23 valent (Pneumovax 23) 2yo and older 11/30/2021,01/11/2010 Td Tetanus diptheria (Tdvax) 7yo and older 05/01/2006 Tdap Tetanus diptheria acell ular pertussis (Boostrix; Adacel) 7yo and older 05/01/2006 Zoster Live 12/30/2014 Surgical History Surgery Date Site/Laterality Comments OTHER SURGICAL HISTORY PROCEDURE: IN UNLISTED PROCEDURE FEMUR/KNEE; COMMENT: l knee OTHER [...] HISTORICAL LITHOTRIPSY OTHER SURGICAL HISTORY 06/06/2008 PROCEDURE: IN FISSURECTOMY INCL SPHINCTEROTOMY WHEN PERFORMED Medical History [...] DX:Hypothyroidis m PAD (peripheral artery disea se) ([facility] V24) 03/12/2018 DX:PAD (peripheral artery di sease) ([facility]) AAA (abdominal aortic aneury sm) without rupture ([facility] V24) 07/11/2008 DX:AAA (abdominal aortic aneurysm) without rupture (HCC); COMMENT: 02/2018 4.4 cm Chronic sinusitis 08/23/2018 DX:Chronic sin usitis Osteoarthritis 08/23/2018 DX:Osteoarthriti s; COMMENT: Lumbar Spine, Hips, Hands Cataract 08/23/2018 DX:Cataract Type 2 diabetes mellitus wit h cataract ([facility] V24, [facility] V28) 08/23/2018 DX:Type 2 diabetes mellitus with cataract (HCC) Migraine with aura 08/23/2018 DX:Migraine w ith aura Carpal tunnel syndrome 08/23/2018 DX:Carpal tunnel syndrome Essential tremor 08/23/2018 DX:Essential tr emor Type 2 diabetes mellitus wit h neurological manifestations ([facility] V24, [facility] V28) 08/23/2018 DX:Type 2 diabetes mellitus with neurological manifestations (HCC) Type 2 diabetes mellitus wit h renal manifestations ([facility] V24, [facility] V28) 08/15/2011 DX:Type 2 diabetes mellitus with renal manifestations (HCC); COMMENT: Diet controlled Family History Medical History Relation Name Comments Stroke Father Lymphoma Mother Relation Name Status Comments Father Mother Social History Tobacco Use Types Packs/Day Years Used Date Smoking Tobacco: Former Cigarettes 0 Q uit: 02/13/2002 Smokeless Tobacco: Never Tobacco Cessation:Counseling Given: Not Answered Alcohol Use Standard Drinks/Week Comments No 0 (1 standard drink = 0.6 oz pur e alcohol) Housing Instability Answer Date Recorde d Are you worried that in the next 2 months you may not have stable housing? No 12/25/2024 Food Access & Nutrition Answer Date Rec orded Do you have access to a vari ety of food including fruits and vegetables? Yes 12/25/2024 Access to Healthcare Answer Date Record ed Within the last 3 months, ho w many times did you visit the emergency department for your medical care? 0 12/25/2024 Health Literacy Answer Date Recorded How often do you need to hav e someone help you when you read instructions, pamphlets, or other written material from your doctor or pharmacy? Never 12/25/2024 Caregiver: How often do you need to have someone help you when you read instructions, pamphlets, or other written material from your doctor or pharmacy? Not on file 12/25/2024 Financial Risk Answer Date Recorded How hard is it for you to pa y for the very basics like food, housing, medical care, and air conditioning / heating? Somewhat hard 12/25/2024 Transportation Answer Date Recorded Has the lack of transportati on kept you from meetings, work, or from getting things needed for daily living? No Has the lack of transportati on kept you from medical appointments or from getting medications? No 12/25/2024 Social Isolation Answer Date Recorded How often do you feel lonely or isolated from th ose around you? Never 12/25/2024 Food Risk Answer Date Recorded Within the past 12 months we worried whether our food would run out before we got money to buy more. Never true 12/25/2024 Within the past 12 months th e food we bought just didn't last and we didn't have money to get more. Never true 12/25/2024 Dependent Care Answer Date Recorded Do you need help finding or paying for care for your loved ones. For example, teacher early childhood development or elderly care for an older adult? No 12/25/2024 Education Answer Date Recorded Do you think completing more education or training, like finishing a GED, going to college, or learning a trade, would be helpful for you? No 12/25/2024 Employment and Income Answer Date Recor ded During the last four weeks, have you been actively looking for work? No 12/25/2024 Living Situation Answer Date Recorded What is your living situation? Unrecognized valu e 12/25/2024 Sex and Gender Information Value Date Recorded Sex Assigned at Not on file Legal Sex Male 10:53 PM EST Gender Identity Not on file Sexual Orientation Not on file Obstetrics History Last Filed Vital Signs Vital Sign Reading Time Taken Comments Blood Pressure 143/75 12/25/2024 2:32 PM EST provider will re check Pulse 60 12/25/2024 2:32 PM EST Temperature 36.3 C (97.3 F) 12/25/2024 2:32 PM EST Respiratory Rate 16 01/01/2025 11:1 6 AM EST Oxygen Saturation 96% 12/25/2024 2:3 2 PM EST Inhaled Oxygen Concentration - - Weight 97.5 kg (215 lb) 01/01/2025 11:1 6 AM EST Height 170.2 cm (5' 7 ) 01/01/2025 11:1 6 AM EST Body Mass Index 33.67 01/01/2025 11:16 AM EST Plan of Treatment Upcoming Encounters Date Type Department Care Team (Late st Contact Info) Description 01/15/2025 3:00 PM EST Office Visit Orthopedics [address] [phone] Carlos Hutchinson PA [address] [place] [phone] 04/25/2025 11:15 AM EDT Office Visit Adult Medicine [place] [address] [phone] Boris Owens MD [address] [place] [address] Health Maintenance Due Date Last Done Comments Zoster Vaccines (2 of 3) 02/24/2015 12/30/2014 RSV Immunization Adult Patients (1 - 1-dose 75+ series) 07/29/2018 Medicare Annual Wellness Visit 01/22/2022 Diabetes: Annual Retina Eye Exam 11/23/2022 11/23/2021 Diabetes: Annual Foot Exam 10/19/2023 10/18/2022 COVID-19 Vaccine ( season) 2024 01/26/2024, 03/07/2023, 06/03/2021, Additional history exists Influenza Vaccine (#1) 2024 , 11/21/2022, 11/03/2021, Additional history exists Diabetes: Annual Urine Albumin-Creatinine Ratio (uACR) 12/31/2024 01/01/2024, 11/22/2022 Diabetes: Blood Sugar Control Test (HGBA1C) 06/24/2025 12/25/2024, 06/11/2024, 01/01/2024, Additional history exists Diabetes: Annual GFR (Glomerular Filtration Rate) 12/25/2025 12/25/2024, 03/02/2024 Falls Risk Assessment 12/25/2025 12/25/2024 Hypertension/CHF/CAD Annual BMP Blood Test 12/25/2025 12/25/2024, 03/02/2024 Social Influencers of Health Screening 12/25/2025 12/25/2024 Cholesterol Screening (Lipid Panel) 03/02/2029 03/02/2024, 11/22/2022 DTaP,Tdap,and Td Vaccines (4 - Td or Tdap) 11/13/2033 11/14/2023, 05/01/2006, 05/01/2006 Pneumococcal Vaccine: 50+ Years Completed 03/07/2023, 11/30/2021, 01/11/2010 Depression Screening Completed 12/25/2024 HIB Vaccines Aged Out No longer eligi [...] Procedure Name Priority Date/Time Associated Diagnosis Comments IN ARTHROCENTESIS/ASPIR ATION/INJECTION MAJOR JOINT/BURSA W/O U/S GUIDANCE Routine 01/01/2025 11:30 AM EST Bilateral shoulder pain, unspecified chronicity BASIC METABOLIC PANEL Routine 12/25/2024 3:29 PM EST Encounter for screening for malignant neoplasm of prostate Type 2 diabetes mellitus with neurological manifestations ([facility] V24, [facility] V28) HEMOGLOBIN A1C Routine 12/25/2024 3:29 PM EST Cervical spine disease Type 2 diabetes mellitus with other specified complication, unspecified whether termination clerk insulin use ([facility] V24, [facility] V28) THYROID STIMULATING HORMONE WITH REFLEX TO FREE T4 AND FREE T3 Routine 12/25/2024 3:29 PM EST Cervical spine disease Type 2 diabetes mellitus with other specified complication, unspecified whether longterm insulin use ([facility] V24, [facility] V28) POC GLUCOSE Routine 12/25/2024 2:48 PM EST Cervical spine disease 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, without long-term current use of insulin ([facility] V24, [facility] V28) EXTERNAL VASCULAR ULTRASOUND 12/20/2024 EXTERNAL VASCULAR ULTRASOUND 12/20/2024 EXTERNAL ULTRASOUND REPORT 12/20/2024 IN ARTHROCENTESIS/ASPIR ATION/INJECTION MAJOR JOINT/BURSA W/O U/S GUIDANCE Routine 12/04/2024 9:30 AM EDT Primary osteoarthritis of both knees MICROALBUMIN CREATININE URINE RATIO Routine 01/01/2024 8:10 AM EST Type II or unspecified type diabetes mellitus with neurological manifestations, not stated as uncontrolled(250.60) ([facility] V24, [facility] V28) from Last 3 Months or Most Recently Relevant to Health Maintenance Results * IN ARTHROCENTESIS/ASPIRATION/INJECTION MAJOR JOINT/BURSA W/O U/S GUIDANCE (01/01/2025 11:30 AM EST) Narrative Carlos Hutchinson PA - 01/01/2025 11:30 AM EST KEVIN Cabrera 01/01/2025 11:42 AM L Inj/Asp: R subacromial bursa Indications: pain Details: 22 G needle, posterior approach Medications: 4 mL lidocaine 1 %; 80 mg methylPREDNISolone acetate 80 mg/mL Outcome: tolerated well, no immediate complications Informed Consent: Site: Shoulder Laterality: Right Relevant images/test results available and [...] IN CLINIC/BEDSIDE ORDERABLES Fin al Result * Thyroid stimulating hormone with reflex to free t4 and free t3 (12/25/2024 3:29 PM EST) TSH 0.71 0.40 - 4.00 mcIU/mL LAB CHEMISTRY METHOD 12/25/2024 7:14 PM EST [facility] Blood Venous blood specimen / Unknown Venipuncture / Unknown 12/25/2024 3:29 PM EST 12/25/2024 3:29 PM EST us Swapnil Ghosh NP LAB BLOOD ORDERABLES Final R esult [facility] [address] [place] [address], [place] [phone] * Hemoglobin A1c (12/25/2024 3:29 PM EST) [facility] Hemoglobin A1C 6.4 <6.5 % LAB CHEMISTRY METHOD 12/25/2024 9:55 PM EST [facility] Mean Bld Glu Estim. 137 mg/dL LAB CHEMISTRY METHOD 12/25/2024 9:55 PM [facility] Blood Venous blood specimen / Unknown Venipuncture / Unknown 12/25/2024 3:29 PM EST 12/25/2024 3:29 PM EST us Swapnil Ghosh SLITTER AND REWINDER MACHINE OPERATOR LAB BLOOD ORDERABLES Final R esult [facility] [address] [place] [address], [place] [phone] * (ABNORMAL) Basic metabolic panel (12/25/2024 3:29 PM EST) [facility] Sodium 141 133 - 145 mmol/L LAB CHEMISTRY METHOD 12/25/2024 6:47 PM [facility] Potassium 4.6 3.5 - 5.5 mmol/L LAB CHEMISTRY METHOD 12/25/2024 6:47 PM [facility] Chloride 106 96 - 110 mmol/L LAB CHEMISTRY METHOD 12/25/2024 6:47 PM [facility] CO2 31 21 - 32 mmol/L LAB CHEMISTRY METHOD 12/25/2024 6:47 PM [facility] Anion Gap 4 3 - 11 LAB CHEMISTRY METHOD 12/25/2024 6:47 PM [facility] Glucose 115(H) 70 - 100 mg/dL LAB CHEMISTRY METHOD 12/25/2024 6:47 PM [facility] BUN 16 5 - 25 mg/dL LAB CHEMISTRY METHOD 12/25/2024 6:47 PM [facility] Creatinine 1.11 0.70 - 1.30 mg/dL LAB CHEMISTRY METHOD 12/25/2024 6:47 PM EST [facility] eGFR 67 >=60 mL/min/1. 73m2 LAB CHEMISTRY METHOD 12/25/2024 6:47 PM EST [facility] Comment:Calculation based on the Chronic Kidney Disease Epidemiology Collaboration (CKD-EPI) equation refit without adjustment for race. BUN/Creatinine Ratio 14.4 LAB CHEMISTRY METHOD 12/25/2024 6:47 PM EST [facility] Calcium 9.4 8.5 - 10.5 mg/dL LAB CHEMISTRY METHOD 12/25/2024 6:47 PM EST [facility] Blood Venous blood specimen / Unknown Venipuncture / Unknown 12/25/2024 3:29 PM EST 12/25/2024 3:29 PM EST us Swapnil Ghosh SLITTER AND REWINDER MACHINE OPERATOR LAB BLOOD ORDERABLES Final R esult [facility] [address] [place] [address], [place] [phone] * POC glucose manually resulted (12/25/2024 2:48 PM EST) Glucose POC 148 mg/dL Blood Capillary blood specimen / Unknown 12/25/2024 2:48 PM EST Swapnil Ghosh SLITTER AND REWINDER MACHINE OPERATOR POINT OF CARE TEST ENTER/GELY T ORDERABLES Final Result * External Vascular Ultrasound (12/20/2024) Only the most recent of2 resultswithin the time period is included. Anatomical Region Laterality Modality Ultrasound us Provider [facility] CV VASCULAR PROCEDURES F inal Result * External Ultrasound Report (12/20/2024) Anatomical Region Laterality Modality Ultrasound us Provider [facility] IMG US PROCEDURES Final Result * IN ARTHROCENTESIS/ASPIRATION/INJECTION MAJOR JOINT/BURSA W/O U/S GUIDANCE (12/04/2024 [...] IN CLINIC/BEDSIDE ORDERABLES Fin al Result * Microalbumin creatinine urine ratio (01/01/2024 8:10 AM EST) Creatinine, Urine 94.0 mg/dL LAB CHEMISTRY METHOD 01/01/2024 10:46 AM EST [facility] Microalb, Ur 14.5 0.0 - 29.0 mg/L LAB CHEMISTRY METHOD 01/01/2024 10:46 AM EST [facility] Microalb/Creat Ratio 15 <30 mg/g creat LAB CHEMISTRY METHOD 01/01/2024 10:46 AM EST [facility] Urine Urine specimen obtained by clean catch procedure / Unknown Non-blood Collection / Unknown 01/01/2024 8:10 AM EST 01/01/2024 8:10 AM EST us Boris Owens MD LAB URINE ORDERABLES Final Resul t [facility] [address] [place] [address], from Last 3 Months or Most Recently Relevant to Health Maintenance Insurance [employer] [address] [place] [address] Care Teams Save All Operator Relationship Specialty Start Date End Date Boris Owens MD [address] [place] [address] PCP - General Internal Medicine 01/01/21
--- OUTSIDE RECORDS SUMMARY | 2025-01-07 11:03 | XMS_ITS | Clinical Summary ---
Author Organization [facility] Address [address] [place] [address] Phone Care Team Providers Care Equipment Mechanic Specialist Name Role Phone Boris Owens MD Primary Care Provider [phone] Aleksander Lucia MD Unavailable [phone] Arun Alfaro MD Unavailable + Allergies No known active allergies Medications omega 3-wyl-wvc-fish oil 1,000 mg (120 mg-180 mg) Cap Take by mouth. 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 He does see a neurologist in [place], Dr. Alfaro for migraine and tremor. He [...] left moderate stenosis ICAs. No acute findings. [facility] [place] [place] neurologist felt that this might be simply peripheral vertigo especially because symptoms were more prevalent when the patient is in motion, but given his diffuse arthrosclerosis, age risk factors, true TIA could not be completely excluded and recommended brain MRI, aspirin, lab stroke panel, urine tox, TTE and follow-up [facility] neuro consult, will also order neurochecks, jar capper. PT OT. Will hold antihypertensives to allow [...] EST) SODIUM 140 133 - 146 mmol/L [facility] POTASSIUM 4.7 3.3 - 5.1 mmol/L [facility] CHLORIDE 103 96 - 108 mmol/L [facility] CO2 28 21 - 35 mmol/L [facility] BUN 22(H) 6 - 19 mg/dL [facility] CREATININE 0.90 0.5 - 1.5 mg/dL [facility] GLUCOSE 129(H) 70 - 99 mg/dL [facility] ALBUMIN 3.7(L) 3.9 - 4.8 g/dL [facility] TOTAL PROTEIN 6.7 6.5 - 8.0 g/dL [facility] CALCIUM 9.1 8.4 - 10.3 mg/dL [facility] ALKALINE PHOSPHATASE 65 39 - 117 U/L [facility] TOTAL BILIRUBIN 0.6 0.0 - 1.2 mg/dL [facility] AST 19 0 - 37 U/L [facility] ALT 25 0 - 40 U/L [facility] GLOBULIN 3.0 1 - 4.8 g/dL [facility] EGFR 86 >59 mL/min/1.7 3m2 [facility] Comment:Estimated glomerular filtration rate calculated using the CKD-EPI refit equation. ANION GAP 14 10 - 20 mmol/L [facility] Blood 03/02/2024 7:41 AM EST 03/02/2024 7:52 AM EST us Naya Sterlingance TRANSPORT ANALYST LAB BLOOD BKR ORDERABLE S Final Result Performing Organization Address [facility]/ZIP Co de Phone Number [address] [address] * (ABNORMAL) TSH (03/02/2024 7:41 AM EST) TSH 5.49(H) 0.27 - 4.20 uIU/mL [facility] Blood 03/02/2024 7:41 AM EST 03/02/2024 7:52 AM EST us Naya Sterlingance TRANSPORT ANALYST LAB BLOOD BKR ORDERABLE S Final Result Performing Organization Address [facility] Co de Phone Number [address] [address] * (ABNORMAL) Hemoglobin A1c (03/02/2024 7:41 AM EST) HEMOGLOBIN A1C 6.6(H) 4.3 - 5.8 % [facility] Blood 03/02/2024 7:41 AM EST 03/02/2024 7:52 AM EST us Naya Harrisperance TRANSPORT ANALYST LAB BLOOD BKR ORDERABLE S Final Result Performing Organization Address [facility] Co de Phone Number [address] [address] from Last 3 Months or Most Recently Relevant to Health Maintenance Insurance [employer]AC[employer] Member Subscriber Plan / Payer (Ef fective 2020-Present) Name:Sam Villareal Relation to Subscriber:Self Name:Sam Villareal Payer ID:Not on file Type:Medicare Address: [address] SAFETY NET PARTIAL Member Subscriber Plan / Payer (Ef fective 2020-Present) Name:Sam Villareal Relation to Subscriber:Self Name:Sam Villareal Payer ID:Not on file Type:Medicare Address: [address] SAFETY NET PARTIAL [facility] MEDICARE HMO REPLACEMENT [employer]PLAC[employer] MEDICARE HMO REPLACEMENT Member Subscriber Plan / Payer (Ef fective 2020-Present) Name:Sam Villareal Relation to Subscriber:Self Name:Sam Villareal Payer ID:Not on file Type:Medicare Address: [address] PARTIAL Member Subscriber Plan / Payer (Ef fective 2020-Present) Name:Sam Villareal Relation to Subscriber:Self Name:VillarealSam mayer Payer ID:Not on file Type:Medicare Address: [address] SAFETY NET PARTIAL [facility] MEDICARE HMO REPLACEMENT Member Subscriber Plan / Payer (Ef fective 2020-Present) Name:Sam Villareal Relation to Subscriber:Self Name:Sam Villareal Payer ID:Not on file Type:Medicare Address: [address] SAFETY NET PARTIAL [employer] H[employer] REPLACEMENT [facility] PARTIAL Advance Directives For more information, please contact: [phone] (9AM - 5PM [facility], Monday-Monday) * Full Code (Latest Code Status on File) Date Activated Date Inactivated Comments 03/01/2024 5:07 PM Question Answer Comments Code Status Confirmed With: Patient Care Teams Equipment Mechanic Specialist Relationship Specialty Start Date End Date Boris Owens MD [address] [place] [id number] PCP - General Internal Medicine 11/26/21 Aleksander Lucia MD [address] [place] [address] Vascular Surgery 03/02/24 Arun Alfaro MD [address] [place] [address] [place] [address] Neurology 03/02/24 Additional Source Comments The information contained in this document represents components of the legal health record. It is not the complete legal health record.[facility]
--- OUTSIDE RECORDS SUMMARY | 2025-01-07 11:03 | XMS_ITS | Encounter Summary ---
Author Organization [facility] Address [address] [place] [address] Phone Care Team Providers Care Wheel Tuner Name Role Phone Boris Owens MD Primary Care Provider [phone] Aleksander Lucia MD Unavailable [phone] Arun Alfaro MD Unavailable + Encounter Details Date Type Department Care Team (Late st Contact Info) Description 03/01/2024 Procedure Pass [facility] [address] [place] [address] Social History Tobacco Use Types Packs/Day Years [...] 03/01/2024 9:14 AM Jennifer Pemberton RN * [place] Suicide Severity Rating Scale (Screener/Recent Self-Report) Question [...] on filedocumented in this encounter Care Teams Wheel Tuner Relationship Specialty Start Date End Date Boris Owens MD [address] [place] [address] PCP - General Internal Medicine 11/26/21 Aleksander Lucia MD [address] [place] [address] Vascular Surgery 03/02/24 Arun Alfaro MD [address] [place] [address] [place] [address] Neurology 03/02/24 documented as of this encounter Additional Source Comments The information contained in this document represents components of the legal health record. It is not the complete legal health record.[facility]
--- OUTSIDE RECORDS SUMMARY | 2025-01-07 11:03 | XMS_ITS | Clinical Summary ---
Author Organization [employer] Address [address] [facility] [address] [place] [address] Care Team Providers Care Web Retailer Name Role Phone Unavailable Primary Care Provider [...] by mouth. 1 Active Cholecalciferol (Vitamin D3) 284546 UNIT/GM powder Take 10 mcg by mouth. 2 Active alpha tocopherol (Vitamin E) 400 units capsule Take 400 Int'l Units by mouth. 2 Active Cobalamin Combinations (Vitamin W49-Vrgcs Acid) 500-400 MCG tablet Take 1,000 mcg [...] Glucosamine-Vit D-Hyaluron Acd (Glucosamine Plus Vitamin D3) 2356-4146-1.65 MG-UNIT-MG tablet Take by mouth. 01/20/20 2 [...] (Kenalog) 0.1 % oral paste 2 Active Flaxseed, Linseed, (Flax Seed Oil) 1000 MG capsule Take 1,000 mg by mouth Once per day. Active doxycycline (Monodox) 50 MG capsule TAKE 1 CAPSULE BY MOUTH DAILY WITH FOOD Active cinnamon 500 MG capsule Take 500 mg by mouth Once per day. Active chlorhexidine (Peridex) 0.12 % solution Swish 15 mL morning and night for 1 minute. Spit, do not swallow. Do not eat or drink for 30 minutes following use. 473 mL 5 Active Active Problems Problem Noted Date [...] obesity (BMI 35.0-35.9 with comorbidity) (CMS/[facility]) 04/21/2023 Grade II hemorrhoids 11/21/2022 Candidiasis of [...] Encounters Date Type Department Care Team Description 01/06/2025 11:30 AM EST Office Visit [facility] [address] [place] [address] Jonathon Acosta DDS 01/03/2025 9:30 AM EST Office Visit [facility] [address] [place] [address] Jonathon Acosta DDS 01/02/2025 Telephone [facility] [address] [place] [address] Jonathon Acosta DDS limited exam no insurance paying out of pocket 12/03/2024 2:00 PM EDT Office Visit [facility] [address] [place] [address] Mahsa Mckenna 11/19/2024 11:30 AM EDT Office Visit [address] [address] Hieu Olivarez DMD from Last 3 Months [...] Description 06/09/2025 2:15 PM EDT Office Visit [facility] [address] [place] [address] Amilcar Thomas Health Maintenance Due Date Last [...] , 11/21/2022, 11/03/2021, Additional history exists Diabetes: Urine Protein Screening 12/31/2024 01/01/2024 Dental X-Ray: Full Mouth 01/18/2025 01/17/2022 Dental Oral Exam 06/04/2025 12/03/2024, 01/17/2022 Dental Prophylaxis 06/04/2025 12/03/2024 Diabetes: Hemoglobin A1C 06/24/202512/25/ 025, 06/11/2024, 03/02/2024 Tobacco Screening 01/06/2026 01/06/2025 DTaP/Tdap/Td Vaccines (2 - Td or Tdap) [...] on patient's age to complete this topic Goals Goal Patient Goal Type Associated Problems Recent Progress Patient-Stated? Author Help patients manage their type 2 diabetes Care Plan Help patients manage their type 2 diabetes No Noah Kelsea Weekly blood pressure task Care Plan Weekly blood pressure task No Zamora Kelsea Help patients manage their type 2 diabetes Care Plan Help patients manage their type 2 diabetes No Zamora, Kelsea Patient has diabetic eye disease Care Plan Patient has diabetic eye disease No Zamora, Kelsea Help patients manage their type 2 diabetes Care Plan Help patients manage their type 2 diabetes No Zamora Kelsea Patient has chronic kidney disease Care Plan Patient has chronic kidney disease No Zamora, Kelsea Weekly blood pressure task Care Plan Weekly blood pressure task No Zamora Kelsea Weekly blood pressure task Care Plan Weekly blood pressure task No Zamora Kelsea Patient has diabetic eye disease Care Plan Patient has diabetic eye disease No Zamora Kelsea Patient has diabetic eye disease Care Plan Patient has diabetic eye disease No Zamora, Kelsea Patient has chronic kidney disease Care Plan Patient has chronic kidney disease No Zamora Kelsea Patient has chronic kidney disease Care [...] Care Plan Weekly blood pressure task No Alfredo Acostabes DDS Patient has diabetic eye disease Care Plan Patient has diabetic eye disease No Danya Acostas DDS Patient has diabetic eye disease Care Plan Patient has diabetic eye disease No Alfredo Acostabes DDS Patient has diabetic eye disease Care Plan Patient has diabetic eye disease No Alfredo Acostabes DDS Patient has chronic kidney disease Care Plan Patient has chronic kidney disease No Alfredo Acostabes DDS Patient has chronic kidney disease Care Plan Patient has chronic kidney disease No Alfredo Acostabes DDS Patient has chronic kidney disease Care Plan Patient has chronic kidney disease No Danya Acostas DDS Procedures Procedure Name Priority Date/Time Associated Diagnosis Comments NO CHARGE PROCEDURE Routine 01/06/2025 1 1:30 AM EST LIMITED ORAL EVALUATION - PROBLEM FOCUSED Routine 01/03/2025 9:30 AM EST PERIODIC ORAL EVALUATION - ESTABLISHED PATIENT Routine [...] or Most Recently Relevant to Health Maintenance Additional Health Concerns Active Problems Noted Date [...]
--- OUTSIDE RECORDS SUMMARY | 2025-01-07 11:03 | XMS_ITS | Encounter Summary ---
Author Organization [facility] Address [address] [place] [address] Care Team Providers Care Worm Picker Name Role Phone Boris Owens MD Primary Care Provider [phone] Encounter Details Date Type Department Care Team (Late st Contact Info) Description 12/26/2024 Results Follow-Up Adult Medicine [facility] [address] [place], [place] [phone] Swapnil Ghosh, TURNING SANDER TENDER [address] [place], [place] Social History Tobacco Use Types Packs/Day Years Used Date Smoking Tobacco: Former Cigarettes 0 Q uit: 02/13/2002 Smokeless Tobacco: Never Alcohol [...] your loved ones. For example, child care director or elderly care for an older adult? [...] on file documented as of this encounter Plan of Treatment Upcoming Encounters Date Type Department Care Team (Late st Contact Info) Description 01/15/2025 3:00 PM EST Office Visit Orthoped[facility] - [place] [address] [place] [address] Carlos Hutchinson PA [address] [place] [phone] 04/25/2025 11:15 AM EDT Office Visit Adult Medicine [facility] [address] [place] [address] Boris Owens MD [address] [place] [address] documented as of this encounter Visit Diagnoses Not on filedocumented in this encounter Additional Health Concerns Assessment Noted Time PHQ-9 Depression Total Score: 4 12/26/19 25 2:40 PM EST A fall risk assessment has been complete d for the patient 12/25/2024 2:40 PM EST documented as of this encounter Care Teams Worm Picker Relationship Specialty Start Date End Date Boris Owens MD [address] [place] [address] PCP - General Internal Medicine 01/01/21 documented as of this encounter
== END 2025-01-07 10:35 | disposition home or self-care (01) ==
LOC: HO.HVS 09:32
PROVIDERS: PCP Internal Medicine; Visit Provider Surgery Vascular Surgery
DX: I73.9 Peripheral vascular disease, unspecified (principal); I71.43 Infrarenal abdominal aortic aneurysm, without rupture
CPT/HCPCS: 99214

== ENCOUNTER → 2025-01-07 09:32 | Outpatient (BNVA) | payer MEDICARE, SELFPAY | PROVIDERS: PCP Internal Medicine; Visit Provider Surgery Vascular Surgery | DX: I71.43 Infrarenal abdominal aortic aneurysm, without rupture (principal); I73.9 Peripheral vascular disease, unspecified | CPT/HCPCS: 99212 ==